=== PATIENT | male | born 1965 | race Caucasian/White ===

== ENCOUNTER → 2018-06-14 | Outpatient (CLI) | payer MEDICARE ==
[2018-06-14 10:54] LABS: Basophils % (A) 0 %; Eosinophils # (A) 0.3 k/uL (0-0.7); Eosinophils % (A) 4 %; HCT 47.4 % (39.0-53.0); HGB 15.1 gm/dL (13.0-17.5); Lymphocytes % (A) 24 %; MCH 29.5 pg (25.0-35.0); MCHC 31.9 g/dL (31.0-37.0); MCV 92.7 fL (80.0-100.0); Mean Platelet Volume 6.8; Monocytes # (A) 0.5 k/uL (0-1.0); Monocytes % (A) 6 %; Neutrophils # (A) 5.3 k/uL (1.3-7.7); Neutrophils % (A) 64 %; Platelet Count 259 k/uL (150-450); RBC 5.11 m/uL (4.30-5.90); RDW 12.3 % (11.5-15.5); WBC 8.3 k/uL (3.8-10.6)
== END | disposition home or self-care (01) ==
LOC: LABPAT 10:07
PROVIDERS: ATTEND Surgery
DX: Z01.818 Encounter for other preprocedural examination (principal); Z01.812 Encounter for preprocedural laboratory examination; K43.2 Incisional hernia without obstruction or gangrene; F17.200 Nicotine dependence, unspecified, uncomplicated; D64.9 Anemia, unspecified
CPT/HCPCS: 36415; 85025; 86850; 86900; 86901; 93005

== ENCOUNTER 2018-06-18 07:27 | Day surgery (SDC) | payer MEDICARE ==
[2018-06-13 11:34] VITALS: BMI 25.0
[~2018-06-18 07:27] MED LIST: DEXAMETHASONE SOD PHOSPHATE 10 MG/ML 1 ML VIAL IV ONE; HEPARIN SODIUM,PORCINE 5,000 UNIT/ML 1 ML VIAL SQ ONE; LACTATED RINGERS 1,000 ML IV SCH; MIDAZOLAM 2 MG/2 ML VIAL IV PRN; ONDANSETRON 4 MG/2 ML VIAL IVP ONE; SCOPOLAMINE 1.5MG/72HR PATCH TRANSDERM ONE; ceFAZolin IN SWFI 2 GM/20 ML SYRINGE IVP ONE; fentaNYL (PF) 50 MCG/ML 2 ML AMP IV PRN
[2018-06-18] MEDS ORDERED: LIDOCAINE 1% 20 ML VIAL (10MG/ML) FOR IV START INTRADERMA ONE (08:00)
[2018-06-18] MEDS ORDERED: HEPARIN SODIUM,PORCINE 5,000 UNIT/ML 1 ML VIAL SQ ONE (08:16)
--- NOTE | 2018-06-18 08:19 | P.GSHP ---
History of Present Illness H&P Date: 06/18/18 Chief Complaint: Incarcerated ventral hernia This a 52-year-old male who's developed an recurrent incarcerated ventral hernia. Patient presents today for laparoscopic robotic system repair. Past Medical History Past Medical History: Hyperlipidemia, Sleep Apnea/CPAP/BIPAP Additional Past Medical History / Comment(s): Abdominal aneurysm, back pain History of Any Multi-Drug Resistant Organisms: None Reported Past Surgical History: Back Surgery, Hernia Repair, Tonsillectomy Additional Past Surgical History / Comment(s): LUMBAR FUSION. UVULA/TONSIL SURGERY FOR SLEEP APNEA. BILATERAL ING HERNIA. Past Anesthesia/Blood Transfusion Reactions: No Reported Reaction Smoking Status: Current every day smoker - Past Family History Mother Family Medical History: No Reported History Medications and Allergies Home Medications Medication Instructions Recorded Confirmed Type Aspirin [Adult Low Dose Aspirin EC] 81 mg PO DAILY 09/18/16 06/18/18 History traMADol HCL [Ultram] 50 mg PO TID PRN 09/18/16 06/18/18 History Simvastatin [Zocor] 40 mg PO HS 06/13/18 06/18/18 History Allergies Allergy/AdvReac Type Severity Reaction Status Date / Time bee venom protein (honey bee) Allergy Swelling Verified 06/18/18 08:15 Penicillins Allergy Itching Verified 06/18/18 08:15 Surgical - Exam Vital Signs Temp Pulse Resp BP Pulse Ox 97.1 F L 70 18 122/80 97 06/18/18 07:45 06/18/18 07:45 06/18/18 07:45 06/18/18 07:45 06/18/18 07:45 - General well developed, no distress - Eyes PERRL - ENT normal pinna - Neck no masses - Respiratory normal expansion - Cardiovascular Rhythm: regular - Abdomen 3 cm ventral hernia located above the umbilicus Abdomen: soft, non tender Assessment and Plan Assessment: Recurrent incarcerated ventral hernia. We'll perform laparoscopic robotic assistance repair.
[2018-06-18] MEDS ORDERED: KETOROLAC 30 MG/ML 1 ML VIAL ONE (08:47)
[2018-06-18] MEDS ORDERED: LIDOCAINE 1% INJ 10MG/ML (20 ML MDV) ONE (08:47)
[2018-06-18] MEDS ORDERED: MIDAZOLAM 2 MG/2 ML VIAL ONE (08:47)
[2018-06-18] MEDS ORDERED: GLYCOPYRROLATE 0.2 MG/ML 2 ML VIAL ONE (08:47)
[2018-06-18] MEDS ORDERED: NEOSTIGMINE 1 MG/ML 10 ML VIAL ONE (08:47)
[2018-06-18] MEDS ORDERED: SUCCINYLCHOLINE CHLORIDE 100 MG/5 ML SYR IV ONE (08:47)
[2018-06-18] MEDS ORDERED: fentaNYL (PF) 50 MCG/ML 2 ML AMP ONE (08:47)
[2018-06-18] MEDS ORDERED: PROPOFOL 10 MG/ML 20 ML VIAL IV ONE (08:47)
[2018-06-18] MEDS ORDERED: ROCURONIUM BROMIDE 10 MG/ML 10 ML VIAL IV ONE (08:47)
[2018-06-18] MEDS ORDERED: BUPIVACAIN-EPI 0.5%-1:200,000 30 ML VIAL SQ ONE ×2 (09:07→09:17)
[2018-06-18] MEDS ORDERED: LACTATED RINGERS 1,000 ML IV ONE (09:55)
[2018-06-18 10:24] VITALS: TEMP 96.8
--- NOTE | 2018-06-18 10:28 | P.OP ---
Date of Procedure: 06/18/18 Preoperative Diagnosis: Incarcerated ventral hernia Postoperative Diagnosis: Incarcerated ventral hernia Procedure(s) Performed: Laparoscopic robotic-assisted repair of incarcerated ventral hernia Partial omentectomy Anesthesia: NIKOLE Surgeon: Peng Hurst Estimated Blood Loss (ml): 5 Pathology: other (Omentum) Condition: stable Disposition: PACU Description of Procedure: The patient was placed on the operating table in the supine position. He received general anesthesia. His abdomen was prepped and draped usual fashion. Using a 5 mm optical trocar under direct visualization the peritoneal cavity was entered in the left upper quadrant. The abdomen was then insufflated. The laparoscope was placed back into the perineal cavity. Next a 8 mm robotic trocar was placed in the left lower quadrant and a 12 mm robotic trocar was placed in the left lateral position. The original 5 mm trocar was exchanged for a 8 mm robotic trocar. The patient's placed in the left side up position. And the patient was docked to the robot. The ventral hernia was visualized. The hernias located above his previous repair. This was a new hernia. Using hook cautery the peritoneum over the incisional hernia was excised. The incarcerated omentum was dissected free from the hernia and transected. The fascial opening was repaired using 0V STRATA FIX suture. Next a piece of 11 cm round ventral light ST mesh was placed into the. Cavity and secured with 2 OV lock suture. The patient was undocked the robot. The needles were retrieved. The incarcerated omentum was retrieved. The fascia of the 12 mm trocar site was closed with 0 Ethibond suture. Skin was closed interrupted 3-0 Monocryl suture. Dermabond dressings was applied. Patient tolerated procedure well and was sent to recovery room stable condition.
[2018-06-18] MEDS ORDERED: HYDROmorphone 1 MG/ML 1 ML SYRINGE IVP ONE ×2 (10:30→10:36)
[2018-06-18] MEDS ORDERED: HYDROcodone/APAP 7.5-325MG 1 EACH TAB PO ONE (11:14)
[2018-06-18 11:57] VITALS: BP 123/82; PULSE 56; RESP 18
== END 2018-06-18 11:58 | disposition home or self-care (01) ==
LOC: OR 07:27
PROVIDERS: ATTEND Surgery
DX: K43.6 Other and unspecified ventral hernia with obstruction, without gangrene (principal); E78.5 Hyperlipidemia, unspecified; G47.30 Sleep apnea, unspecified; Z99.89 Dependence on other enabling machines and devices; I71.4 Abdominal aortic aneurysm, without rupture; F17.210 Nicotine dependence, cigarettes, uncomplicated; Z79.82 Long term (current) use of aspirin; Z79.899 Other long term (current) drug therapy; Z88.0 Allergy status to penicillin; Z91.030 Bee allergy status
CPT/HCPCS: 88305; 49655; C1781; J2250; J1644; J1100; J2710; J2405; J2001; J3010; J1885; J1170; J0330; J2704; J0690; 86850; 86900; 86901

== ENCOUNTER 2018-07-26 10:34 | Day surgery (SDC) | payer MEDICARE ==
[2018-07-24 16:55] VITALS: BMI 25.0
[~2018-07-26 10:34] MED LIST changes: -DEXAMETHASONE SOD PHOSPHATE 10 MG/ML 1 ML VIAL IV ONE; -HEPARIN SODIUM,PORCINE 5,000 UNIT/ML 1 ML VIAL SQ ONE; +HYDROmorphone 0.5 MG/0.5 ML SYRINGE IVP PRN; +LIDOCAINE 1% 20 ML VIAL (10MG/ML) FOR IV START INTRADERMA PRN; -MIDAZOLAM 2 MG/2 ML VIAL IV PRN; -ONDANSETRON 4 MG/2 ML VIAL IVP ONE; -SCOPOLAMINE 1.5MG/72HR PATCH TRANSDERM ONE; -ceFAZolin IN SWFI 2 GM/20 ML SYRINGE IVP ONE; -fentaNYL (PF) 50 MCG/ML 2 ML AMP IV PRN
[2018-07-26 10:56] VITALS: RESP 16; TEMP 98
[2018-07-26] MEDS ORDERED: PROPOFOL 10 MG/ML 20 ML VIAL IV ONE (11:36)
[2018-07-26] MEDS ORDERED: LIDOCAINE 1% INJ 10MG/ML (20 ML MDV) ONE (11:36)
[2018-07-26] MEDS ORDERED: GLUCAGON 1 MG/ML VIAL ONE (11:36)
--- NOTE | 2018-07-26 11:47 | P.GSHP ---
History of Present Illness H&P Date: 07/26/18 Chief Complaint: Screening colonoscopy This a 52-year-old male referred from Dr. Wong. Patient is today for screening colonoscopy. He denies a significant GI complaints. Past Medical History Additional Past Medical History / Comment(s): ABDOMINAL AORTIC ANEURYSM., BACK PAIN. History of Any Multi-Drug Resistant Organisms: None Reported Past Surgical History: Back Surgery, Hernia Repair, Tonsillectomy Additional Past Surgical History / Comment(s): INGUINAL HERNIA X2, STATES ABDOMINAL HERNIA SURGERY X2- (VENTRAL HERNIA 06/18/18)., Past Anesthesia/Blood Transfusion Reactions: No Reported Reaction Past Psychological History: Depression Additional Psychological History / Comment(s): STATES NO PROBLEM WITH DEPRESSION NOW. Smoking Status: Current every day smoker Past Alcohol Use History: Occasional Additional Past Alcohol Use History / Comment(s): SMOKES 1 PPD, SMOKING FOR 38 YEARS. Past Drug Use History: None Reported - Past Family History Father Family Medical History: Unable to Obtain Medications and Allergies Home Medications Medication Instructions Recorded Confirmed Type traMADol HCL [Ultram] 50 mg PO TID PRN 09/18/16 07/26/18 History Simvastatin [Zocor] 40 mg PO HS 06/13/18 07/26/18 History Allergies Allergy/AdvReac Type Severity Reaction Status Date / Time bee venom protein (honey bee) Allergy Swelling Verified 07/26/18 10:54 Penicillins Allergy Itching Verified 07/26/18 10:54 Surgical - Exam Vital Signs Temp Pulse Resp BP Pulse Ox 98.0 F 78 16 125/77 95 07/26/18 10:51 07/26/18 10:51 07/26/18 10:51 07/26/18 10:51 07/26/18 10:51 - General well developed, no distress - Eyes PERRL - ENT normal pinna - Neck no masses - Respiratory normal expansion - Cardiovascular Rhythm: regular - Abdomen Abdomen: soft, non tender Assessment and Plan Assessment: We'll perform screening colonoscopy.
--- NOTE | 2018-07-26 12:16 | P.OP ---
Date of Procedure: 07/26/18 Preoperative Diagnosis: Screening colonoscopy Postoperative Diagnosis: Sigmoid colon polyp Diverticulosis Procedure(s) Performed: Colonoscopy Anesthesia: MAC Surgeon: Peng Hurst Pathology: other (Sigmoid colon polyp) Condition: stable Disposition: PACU Description of Procedure: The patient's placed on the endoscopy table in the lateral position. He received IV sedation. Digital rectal exam was performed which revealed no abnormalities. The flexible colonoscope was then placed patient anus and passed throughout the entire colon. The ileocecal valve was visualized. The cecum, ascending and transverse colon appeared normal. The descending and sigmoid colon there is mild diverticular changes. At the distal sigmoid colon there was a peduncular polyp and this removed with the snare. This opened was then brought back the rectum and this appeared normal. Scope was withdrawn for patient.
[2018-07-26 12:31] VITALS: BP 110/76; PULSE 69
== END 2018-07-26 12:45 | disposition home or self-care (01) ==
LOC: ORWHC2ENDO 10:34
PROVIDERS: ATTEND Surgery
DX: Z12.11 Encounter for screening for malignant neoplasm of colon (principal); D12.5 Benign neoplasm of sigmoid colon; K57.30 Diverticulosis of large intestine without perforation or abscess without bleeding; F17.210 Nicotine dependence, cigarettes, uncomplicated; I10 Essential (primary) hypertension; I73.9 Peripheral vascular disease, unspecified; Z79.899 Other long term (current) drug therapy; Z88.0 Allergy status to penicillin; Z91.030 Bee allergy status
CPT/HCPCS: 88305; 45385; J1610; J2001; J2704

== ENCOUNTER 2018-08-06 20:01 | Inpatient (IN) | payer MEDICARE ==
[2018-08-06] MEDS: MIDAZOLAM 2 MG/2 ML VIAL IV ONE ×2 (20:10→20:42)
[2018-08-06] MEDS ORDERED: MIDAZOLAM 2 MG/2 ML VIAL ONE (20:10)
[2018-08-06] MEDS ORDERED: LIDOCAINE 1% INJ 10MG/ML (20 ML MDV) SQ ONE (20:12)
[2018-08-06] MEDS: fentaNYL (PF) 50 MCG/ML 2 ML AMP IV ONE ×2 (20:13→20:51)
[2018-08-06] MEDS ORDERED: fentaNYL (PF) 50 MCG/ML 2 ML AMP ONE (20:15)
[2018-08-06] MEDS ORDERED: SODIUM CHLORIDE 0.9% 1,000 ML IV ONE (20:24)
[2018-08-06] MEDS ORDERED: BIVALIRUDIN BOLUS 250 MG/50 ML IV ONE (20:30)
[2018-08-06] MEDS ORDERED: BIVALIRUDIN 250 MG in SODIUM CHLORIDE 0.9% 50 ML IV ONE (20:31)
[2018-08-06] MEDS ORDERED: ATROPINE SULFATE 0.1 MG/ML 10ML SYRINGE IV ONE (20:35)
[2018-08-06] MEDS ORDERED: niCARdipine 25 MG/10 ML VIAL ONE (20:40)
[2018-08-06] MEDS ORDERED: niCARdipine 25 MG/10 ML VIAL INTRACORON ONE (20:42)
[2018-08-06] MEDS ORDERED: POTASSIUM CHLORIDE ER 20 MEQ TAB.ER PO STA ×2 (20:43→20:44)
[2018-08-06] MEDS ORDERED: LIDOCAINE 1% INJ 10MG/ML (20 ML MDV) ONE (20:49)
[2018-08-06] MEDS ORDERED: LIDOCAINE 2% (PF) 20 MG/ML 2 ML VIAL SQ ONE (20:50)
[2018-08-06] MEDS ORDERED: TICAGRELOR 90 MG TAB ONE (20:51)
[2018-08-06] MEDS ORDERED: TICAGRELOR 90 MG TAB PO ONE (20:53)
[2018-08-06] MEDS ORDERED: IOPAMIDOL-370 125ML BTL INJ ONE (20:54)
[2018-08-06] MEDS ORDERED: MAG HYDROX/AL HYDROX/SIMETH 30 ML CUP PO PRN (21:00)
[2018-08-06] MEDS ORDERED: NITROGLYCERIN SL TABS 0.4 MG TAB SUBLINGUAL PRN (21:00)
[2018-08-06] MEDS ORDERED: RX INFO: IV CONTRAST WAS GIVEN 1 EACH MISC MISCELLANE PRN (21:00)
[2018-08-06] MEDS ORDERED: ATORVASTATIN 80 MG TAB PO SCH (21:00)
[2018-08-06] MEDS ORDERED: ATROPINE SULFATE 0.1 MG/ML 10ML SYRINGE IV PRN (21:00)
[2018-08-06] MEDS ORDERED: ZOLPIDEM 5 MG TAB PO PRN (21:00)
[2018-08-06 21:36] LABS: Glucose,Whole Blood 124 mg/dL (75-99)
[2018-08-06] MEDS ORDERED: POTASSIUM CHLORIDE ER 20 MEQ TAB.ER PO ONE (22:00)
[2018-08-06] MEDS ORDERED: MORPHINE SULFATE 2 MG/ML SYRINGE IVP ONE (22:40)
--- NOTE | 2018-08-06 22:44 | CC ---
CARDIAC CATHETERIZATION REPORT INDICATION: Acute inferior wall myocardial infarction. PROCEDURE NOTE: After obtaining informed consent, left heart catheterization and coronary angiogram were performed via the right femoral artery using standard Darrell catheters. The patient has a prior history of abdominal aortic aneurysm, status post aortic stent graft. The Glidewire and catheters were transposed across the aorta under fluoroscopic guidance. The patient tolerated the procedure well without any obvious immediate complications. FINDINGS: HEMODYNAMICS: Left ventricular end-diastolic pressure is 18 mm. There is no significant gradient across the aortic valve. LEFT VENTRICULOGRAM: Left ventriculogram is not performed. ANGIOGRAPHIC DATA: 1. Left main coronary artery: Left main coronary artery appears calcified but is free of significant stenosis. Divides into left anterior descending coronary artery and circumflex coronary artery. 2. Circumflex coronary artery has an 80-90 percent stenosis in its ostial portion just as it comes off the left main. 3. Left anterior descending coronary artery: LAD has an aneurysmal and ectatic area in the proximal part. 4. Right coronary artery: Right coronary artery is totally occluded in its proximal portion with [id number] collaterals. CONCLUSIONS: 1. Acutely occluded right coronary artery. 2. 90% ostial stenosis of the circumflex coronary artery. 3. Ectatic and aneurysmal segment in the proximal LAD. PLAN: Patient will undergo angioplasty with stent placement of the right coronary artery and we will address the circumflex coronary artery and LAD at a later time. Dr. Cecelia Bhandari the on-call reservations clerk will review the angiographic data and will proceed with angioplasty. Please send a copy of this dictation to Dr. Felisa Wong. MMWILLYL / IJN: [id number] /
--- NOTE | 2018-08-06 22:44 | CONS ---
CONSULTATION CHIEF COMPLAINT: Chest pain. HISTORY OF PRESENT ILLNESS: This is a 52-year-old gentleman with history of abdominal aortic aneurysm, status post aortic stent graft, smoking, who presented to the [facility] with sudden onset chest pain that started around 7 o'clock tonight. It was severe intensity, precordial, radiated down his arms. He was found to have acute inferior wall myocardial infarction on an EKG. I was called and we expeditiously transferred the patient over to [facility] for emergent cardiac catheterization, angioplasty. I evaluated the patient in the laborer tin can. The patient is still in chest pain and has ST- segment elevation inferior leads. PAST MEDICAL HISTORY: Significant for abdominal aortic aneurysm, status post stent graft. MEDICATIONS: As charted. ALLERGIES: Allergies are as charted. FAMILY HISTORY: Negative for premature coronary artery disease. SOCIAL HISTORY: Significant for smoking and ETOH abuse. REVIEW OF SYSTEMS: HEENT is unremarkable. Cardiac as described above. Respiratory negative. GI negative. ENT negative. Allergy, immunology, skin and musculoskeletal negative. Endocrine and derm negative. Constitutional negative. Oncological negative. Rest of the system review is not relevant. EXAM: The patient is comfortable at rest. VITAL SIGNS: Stable. Chest exam reveals diminished air entry at the bases. Heart exam reveals first and second heart sounds. No gallop. No murmur. No rub. Abdomen is soft, nontender. Exam of extremities did not reveal edema. Peripheral pulses are felt palpable. I do not have any labs at this time. EKG is as described above. ASSESSMENT: Acute inferior wall myocardial infarction. PLAN: Patient will undergo emergent catheterization angioplasty. MMODL / IJN: [id number] /
[2018-08-06] MEDS: SODIUM CHLORIDE 0.9% 1,000 ML IV SCH (22:56)
--- NOTE | 2018-08-06 23:14 | PTCA ---
PERCUTANEOUSTRANS CORORONARY ANGIOGRAPHY DATE OF SERVICE: 08/06/2018 PROCEDURE: PTCA and stenting of proximal right coronary artery performed in the setting of an acute myocardial infarction as a primary procedure. PERFORMED BY: Dr. David Bhandari. SEDATION: Moderate conscious sedation time was 26 minutes. Patient was administered fentanyl, Versed and Benadryl and was monitored for oxygen saturation, hemodynamics and EKG. CLINICAL INFORMATION: Mr. Severiano Varner is a 52-year-old gentleman with a history of abdominal aortic aneurysm, stent, graft, smoking and family history of CAD, who came in with an acute inferior GA and presented to the emergency room at [facility] at 7:10 pm today. He was promptly transferred here for a cardiac catheterization and PCI. Dr. Swanson evaluated him and performed coronary angiography which revealed total occlusion of proximal RCA as a culprit lesion and also a very high-grade lesion involving ostium and proximal portion of the obtuse marginal branch of circumflex. LAD was aneurysmal. The patient advised PCI of RCA that was performed expeditiously. PROCEDURE NOTE: The existing 6-Tajik introducer in the right femoral artery was used to perform the procedure. A standard right Darrell guide catheter of 6-Tajik caliber was used to cannulate the right coronary artery. A BMW wire was used to cross the lesion. Predilatation was performed with a 2.5 caliber 12 mm long Trek balloon. Subsequently a 3.25 caliber 15 mm long Xience stent was deployed at 13 atmospheres. Patient had chest pain and inferior ST elevation. Excellent angiographic result was achieved without complication. Nicardipine was administered intracoronary. Patient had complete resolution of chest pain and also resolution of EKG changes. He was hemodynamically stable after a transient episode of bradycardia requiring atropine 1 mg. The sheath was then taken out and a Perclose device used to secure hemostasis. Results were discussed with the patient and family and he was sent to the ICU in a stable condition. He received Angiomax bolus and infusion as per protocol and Brilinta 180 mg was also given. The patient tolerated procedure well without complications. MMODL / IJN: [id number] /
[2018-08-07 05:58] LABS: Basophils % (A) 0 %; Eosinophils # (A) 0.2 k/uL (0-0.7); Eosinophils % (A) 2 %; HCT 41.6 % (39.0-53.0); HGB 13.5 gm/dL (13.0-17.5); Lymphocytes # (A) 2.3 k/uL (1.0-4.8); Lymphocytes % (A) 28 %; MCH 31.4 pg (25.0-35.0); MCHC 32.5 g/dL (31.0-37.0); MCV 96.4 fL (80.0-100.0); Mean Platelet Volume 6.5; Monocytes # (A) 0.5 k/uL (0-1.0); Monocytes % (A) 6 %; Neutrophils # (A) 5.2 k/uL (1.3-7.7); Neutrophils % (A) 63 %; Platelet Count 233 k/uL (150-450); RBC 4.31 m/uL (4.30-5.90); RDW 12.7 % (11.5-15.5); WBC 8.3 k/uL (3.8-10.6)
[2018-08-07 06:07] LABS: Anion Gap 6 mmol/L; Blood Urea Nitrogen 11 mg/dL (9-20); Calcium 9.1 mg/dL (8.4-10.2); Carbon Dioxide 25 mmol/L (22-30); Chloride 109 mmol/L (98-107); Glucose 92 mg/dL (74-99); Potassium 4.7 mmol/L (3.5-5.1); Sodium 140 mmol/L (137-145)
[2018-08-07] MEDS: TICAGRELOR 90 MG TAB PO SCH ×2 (08:24→21:03)
[2018-08-07] MEDS: LOSARTAN 50 MG TAB PO SCH (08:24)
[2018-08-07] MEDS ORDERED: ASPIRIN 81 MG PO SCH (09:00)
[2018-08-07] MEDS: SODIUM CHLORIDE 0.9% 1,000 ML IV SCH (09:34)
--- NOTE | 2018-08-07 10:11 | P.PN ---
Subjective Patient has a constant ache in the mid chest worse with breathing. Otherwise looks stable no respiratory distress no dizziness lightheadedness palpitations On examination he is afebrile 98.6F pulse rate in the 60s and 70s respirations normal blood pressure 107/67 mmHg At sounds reduced bilaterally at the bases but no rhonchi no crackles Heart sounds are normal no murmurs or gallops or rub Abdomen is soft nontender Extremities warm no edema Impression Acute inferior wall VT status post coronary stenting last evening by Dr. Bhandari. Patient of Dr. White Patient has a second lesion and will undergo elective coronary stenting in the future Continue aspirin Brilinta losartan atorvastatin and beta blockers I will increase the dose of atorvastatin to 40 mg by mouth daily Objective - Vital Signs Vital signs: Vital Signs Temp 98.6 F 08/07/18 08:00 Pulse 76 08/07/18 09:00 Resp 25 H 08/07/18 09:00 BP 107/67 08/07/18 09:00 Pulse Ox 98 08/07/18 09:00 Intake & Output 08/06/18 08/07/18 08/07/18 18:59 06:59 18:59 Intake Total 1408 450 Output Total 1050 0 Balance 358 450 Weight 85.4 kg 85.4 kg Intake: IV 1408 150 Sodium Chloride 0.9% 1, 675 150 000 ml @ 75 mls/hr IV . [id number] [facility] Rx#:[id number] Oral 300 Output: Urine 1050 0 - Labs CBC & Chem 7: 08/07/18 05:38 08/07/18 05:38 Labs: Abnormal Lab Results - Last 24 Hours (Table) 08/06/18 08/06/18 08/07/18 Range/Units 21:27 23:31 05:38 Chloride 109 H (98-107) mmol/L POC Glucose (mg/dL) 124 H (75-99) mg/dL Troponin I 2.890 H* (0.000-0.034) ng/mL 08/07/18 Range/Units 05:38 Chloride (98-107) mmol/L POC Glucose (mg/dL) (75-99) mg/dL Troponin I 12.100 H* (0.000-0.034) ng/mL
[2018-08-07] MEDS: traMADol 50 MG TAB PO PRN ×2 (10:48→21:02)
--- NOTE | 2018-08-07 11:14 | P.HPIM ---
History of Present Illness H&P Date: 08/07/18 Chief Complaint: STEMI This is a 52-year-old male patient of Dr. Wong.. Patient presented to the emergency room with complaints of chest pain that radiated down his arms. Patient presented to [facility] and was found to have acute inferior wall myocardial infarction on his EKG. Patient underwent an extended transferred to [facility] for emergent cardiac catheterization and angioplasty. Patient has known past medical history of chest pain, hyperlipidemia, abdominal aortic aneurysm repair at [facility] in 2016, depression and nicotine dependence. Patient received a stent placement to the right coronary artery. Patient does have a second lesion in the left coronary artery and LAD the will need to be addressed at a later time per cardiology. Patient currently on [place] test, losartan, atorvastatin and metoprolol. At this time patient denies chest pain or shortness of breath. Patient denies nausea vomiting or diarrhea. Patient denies any urinary burning or frequency Review of Systems Please refer to HPI otherwise unremarkable Past Medical History Past Medical History: Chest Pain / Angina, Hyperlipidemia Additional Past Medical History / Comment(s): ABDOMINAL AORTIC ANEURYSM repair done at [facility] 2016. ., BACK PAIN. History of Any Multi-Drug Resistant Organisms: None Reported Past Surgical History: Back Surgery, Hernia Repair, Tonsillectomy Additional Past Surgical History / Comment(s): INGUINAL HERNIA X2, STATES ABDOMINAL HERNIA SURGERY X2- (VENTRAL HERNIA 06/18/18)., Past Anesthesia/Blood Transfusion Reactions: No Reported Reaction Past Psychological History: Depression Additional Psychological History / Comment(s): STATES NO PROBLEM WITH DEPRESSION NOW. Smoking Status: Current every day smoker Past Alcohol Use History: Occasional Additional Past Alcohol Use History / Comment(s): SMOKES 1 PPD, SMOKING FOR 38 YEARS. Past Drug Use History: None Reported - Past Family History Mother Family Medical History: No Reported History Father Family Medical History: Unable to Obtain Medications and Allergies Home Medications Medication Instructions Recorded Confirmed Type traMADol HCL [Ultram] 50 mg PO TID PRN 09/18/16 08/06/18 History Aspirin EC [Ecotrin Low Dose] 81 mg PO DAILY 08/06/18 08/06/18 History Simvastatin [Zocor] 40 mg PO HS 08/06/18 08/06/18 History Allergies Allergy/AdvReac Type Severity Reaction Status Date / Time bee venom protein (honey bee) Allergy Swelling Verified 08/06/18 22:15 Penicillins Allergy Itching Verified 08/06/18 22:15 Physical Exam Vitals: Vital Signs Temp Pulse Pulse Pulse Resp BP BP 08/07/18 10:36 97.7 F 70 20 100/62 08/07/18 09:00 76 25 H 107/67 08/07/18 08:41 16 08/07/18 08:30 67 15 106/75 08/07/18 08:00 98.6 F 62 25 H 116/69 08/07/18 07:30 61 16 116/70 08/07/18 07:00 55 L 15 102/71 08/07/18 06:30 54 L 16 111/72 08/07/18 06:00 62 13 108/71 08/07/18 05:30 68 15 123/79 08/07/18 05:00 59 L 13 119/76 08/07/18 04:30 55 L 17 103/70 08/07/18 04:00 97.6 F 56 L 10 L 98/65 08/07/18 03:30 57 L 17 110/76 08/07/18 03:00 63 10 L 112/71 08/07/18 02:30 64 13 113/69 08/07/18 02:00 65 14 112/76 08/07/18 01:30 64 11 L 116/75 08/07/18 01:00 55 L 10 L 117/76 08/07/18 00:45 117/77 08/07/18 00:30 62 12 117/77 08/07/18 00:00 98.2 F 62 13 111/75 08/06/18 23:45 111/75 08/06/18 23:30 65 12 115/77 08/06/18 23:24 64 11 L 122/75 08/06/18 23:00 69 19 122/75 08/06/18 22:30 71 13 114/78 08/06/18 22:00 71 10 L 119/78 08/06/18 21:45 122/75 08/06/18 21:30 78 119/79 08/06/18 21:00 70 12 08/06/18 20:18 97.6 F 75 11 L 119/79 Pulse Ox 08/07/18 10:36 97 08/07/18 09:00 98 08/07/18 08:41 98 08/07/18 08:30 95 08/07/18 08:00 97 08/07/18 07:30 97 08/07/18 07:00 97 08/07/18 06:30 96 08/07/18 06:00 95 08/07/18 05:30 96 08/07/18 05:00 98 08/07/18 04:30 97 08/07/18 04:00 97 08/07/18 03:30 97 08/07/18 03:00 96 08/07/18 02:30 95 08/07/18 02:00 94 L 08/07/18 01:30 95 08/07/18 01:00 97 08/07/18 00:45 08/07/18 00:30 97 08/07/18 00:00 96 08/06/18 23:45 08/06/18 23:30 97 08/06/18 23:24 98 08/06/18 23:00 98 08/06/18 22:30 99 08/06/18 22:00 99 08/06/18 21:45 08/06/18 21:30 98 08/06/18 21:00 98 08/06/18 20:18 95 Intake and Output 08/06/18 08/07/18 08/07/18 22:59 06:59 14:59 Intake Total 808 600 450 Output Total 1050 0 Balance 808 -450 450 Intake: IV 808 600 150 Sodium Chloride 0.9% 1, 75 600 150 000 ml @ 75 mls/hr IV . [id number] [facility] Rx#:[id number] Oral 300 Output: Urine 1050 0 Other: # Voids 1 Weight 83.915 kg 85.4 kg 85.4 kg Head normocephalic Neck supple Lungs clear to auscultation bilaterally no wheezing or crackles Heart regular rate and rhythm S1-S2, no rub or gallop Abdomen is soft nontender nondistended positive bowel sounds no hepatosplenomegaly Extremities no edema Neuro alert and orientated to 3 Results CBC & Chem 7: 08/07/18 05:38 08/07/18 05:38 Labs: Abnormal Lab Results - Last 24 Hours (Table) 08/06/18 08/06/18 08/07/18 Range/Units 21:27 23:31 05:38 Chloride 109 H (98-107) mmol/L POC Glucose (mg/dL) 124 H (75-99) mg/dL Troponin I 2.890 H* (0.000-0.034) ng/mL 08/07/18 Range/Units 05:38 Chloride (98-107) mmol/L POC Glucose (mg/dL) (75-99) mg/dL Troponin I 12.100 H* (0.000-0.034) ng/mL Assessment and Plan Assessment: 1. Acute inferior wall myocardial infarction status post post coronary stenting to the RCA. Second lesion that will need to be addressed in the future per cardiology. Patient currently on brilenta, asprin, Losartan and Metoprolol. 2-D echo has been ordered 2. History of abdominal aortic aneurysm repair in 2016 at [facility] 3. Nicotine dependence. Patient educated greater than 3 minutes on smoking cessation. Nicotine patch has been ordered 4. Hyperlipidemia. Continue atorvastatin 5. history of depression Time with Patient: Greater than 30 (Greater than 60% of the total time spent in counseling and coordination of care. I performed an examination of the patient and discussed their management with the Nurse Practitioner. I have reviewed the Nurse Practitioner's notes and agree with the documented findings and plan of care)
--- NOTE | 2018-08-07 11:17 | ECHOF ---
Referral Reason:STEMI MEASUREMENTS -------- HEIGHT: 182.9 cm WEIGHT: 84.8 kg BP: 106/75 RVIDd: 2.1 cm (< 3.3) IVSd: 1.3 cm (0.6 - 1.1) LVIDd: 3.7 cm (3.9 - 5.3) LVPWd: 1.4 cm (0.6 - 1.1) IVSs: 1.6 cm LVIDs: 2.6 cm LVPWs: 1.8 cm Ao Diam: 3.6 cm (2.0 - 3.7) AV Cusp: 1.4 cm (1.5 - 2.6) LA Diam: 2.7 cm (2.7 - 3.8) MV EXCURSION: 20.130 mm (> 18.000) MV EF SLOPE: 109 mm/s (70 - 150) EPSS: 0.3 cm MV E José: 0.80 m/s MV DecT: 218 ms MV A José: 0.55 m/s MV E/A Ratio: 1.47 RAP: 5.00 mmHg RVSP: 9.20 mmHg FINDINGS -------- Sinus rhythm. This was a technically good study. The left ventricular size is normal. There is mild concentric left ventricular hypertrophy. Overa ll left ventricular systolic function is normal with, an EF between 55 - 60 %. The right ventricle is normal in size and function. The left atrium is normal in size. The right atrium is normal in size. The aortic valve is trileaflet, and appears structurally normal. No aortic stenosis or regurgitation. There is trace mitral regurgitation. Trace tricuspid regurgitation present. The right ventricular systolic pressure, as measured by Dopp ler, is 9.20mmHg. Pulmonic valve appears structurally normal. The aortic root size is normal. The pericardium is normal. CONCLUSIONS -------- 1. Sinus rhythm. 2. This was a technically good study. 3. The left ventricular size is normal. 4. There is mild concentric left ventricular hypertrophy. 5. Overall left ventricular systolic function is normal with, an EF between 55 - 60 %. 6. The right ventricle is normal in size and function. 7. The left atrium is normal in size. 8. The right atrium is normal in size. 9. The aortic valve is trileaflet, and appears structurally normal. No aortic stenosis or regurgitati on. 10. There is trace mitral regurgitation. 11. Trace tricuspid regurgitation present. 12. The right ventricular systolic pressure, as measured by Doppler, is 9.20mmHg. 13. Pulmonic valve appears structurally normal. 14. The aortic root size is normal. 15. The pericardium is normal. BANQUET DIRECTOR: Elly Salas RDCS
[2018-08-07] MEDS ORDERED: ATORVASTATIN 20 MG TAB PO SCH (21:00)
[2018-08-07] MEDS: METOPROLOL TARTRATE 12.5 MG TAB PO SCH (21:02)
[2018-08-07] MEDS: ATORVASTATIN 40 MG TAB PO SCH (21:03)
[2018-08-08 06:58] LABS: Basophils % (A) 1 %; Eosinophils # (A) 0.3 k/uL (0-0.7); Eosinophils % (A) 4 %; HCT 44.7 % (39.0-53.0); HGB 14.3 gm/dL (13.0-17.5); Lymphocytes # (A) 2.3 k/uL (1.0-4.8); Lymphocytes % (A) 25 %; MCH 31.1 pg (25.0-35.0); MCV 97.1 fL (80.0-100.0); Mean Platelet Volume 6.7; Monocytes # (A) 0.5 k/uL (0-1.0); Monocytes % (A) 6 %; Neutrophils # (A) 5.9 k/uL (1.3-7.7); Neutrophils % (A) 64 %; Platelet Count 236 k/uL (150-450); RDW 12.7 % (11.5-15.5); WBC 9.2 k/uL (3.8-10.6)
[2018-08-08 07:09] LABS: ALT 28 U/L (21-72); AST 47 U/L (17-59); Albumin 3.6 g/dL (3.5-5.0); Alkaline Phosphatase 81 U/L (38-126); Anion Gap 7 mmol/L; Blood Urea Nitrogen 10 mg/dL (9-20); Calcium 9.3 mg/dL (8.4-10.2); Carbon Dioxide 24 mmol/L (22-30); Chloride 108 mmol/L (98-107); Glucose 86 mg/dL (74-99); Potassium 4.7 mmol/L (3.5-5.1); Sodium 139 mmol/L (137-145); Total Bilirubin 0.6 mg/dL (0.2-1.3); Total Protein 6.4 g/dL (6.3-8.2)
[2018-08-08] MEDS: ASPIRIN 81 MG PO SCH (08:45)
[2018-08-08] MEDS: NICOTINE 14MG/24HR PATCH TRANSDERM SCH (08:46)
[2018-08-08] MEDS: METOPROLOL TARTRATE 12.5 MG TAB PO SCH ×2 (08:46→20:34)
[2018-08-08] MEDS: TICAGRELOR 90 MG TAB PO SCH ×2 (08:47→20:34)
[2018-08-08] MEDS: traMADol 50 MG TAB PO PRN ×2 (12:06→20:33)
--- NOTE | 2018-08-08 14:20 | P.PN ---
Subjective Progress Note Date: 08/08/18 This is a 52-year-old gentleman with history of abdominal aortic aneurysm status post aortic stent graft, nicotine dependence, who presented to [facility] with sudden onset of chest pain, he was found to have an acute inferior wall myocardial infarction. Underwent cardiac catheterization by Dr. Swanson with subsequent PTCA and stenting of the proximal right coronary artery by Dr. David Bhandari. Patient does have a second lesion in the circumflex requiring intervention which will be done electively as an outpatient. He did have an episode of shortness of breath while in the shower, mild chest discomfort which is currently relieved at this time. Blood pressure 100/50 with a heart rate in the 60s. White blood cell count 9.2, hemoglobin 14.3, platelet count 236. Sodium 139, potassium 4.7, BUN 10, creatinine 0.9. Objective - Vital Signs Vital signs: Vital Signs Temp 97.4 F L 08/08/18 11:59 Pulse 59 L 08/08/18 12:00 Resp 18 08/08/18 11:59 BP 100/57 08/08/18 12:00 Pulse Ox 96 08/08/18 08:41 Intake & Output 08/07/18 08/08/18 08/08/18 18:59 06:59 18:59 Intake Total 1270 360 420 Output Total 0 Balance 1270 360 420 Weight 85.4 kg 82.5 kg Intake: IV 610 Sodium Chloride 0.9% 1, 610 000 ml @ 20 mls/hr IV . Q24H [facility] Rx#:[id number] Oral 660 360 420 Output: Urine 0 Other: Voiding Method Toilet Toilet Urinal # Voids 1 1 1 - Exam PHYSICAL EXAMINATION: GENERAL: 52-year-old gentleman in no acute distress at the time of my examination. HEENT: Head is atraumatic, normocephalic. Pupils equal, round. Sclera anicteric. Conjunctiva are clear. Mucous membranes of the mouth are moist. Neck is supple. There is no elevated jugular venous pressure.No Carotid bruit is heard. HEART EXAMINATION: Heart S1, S2 normal. No murmur or gallop heard. CHEST EXAMINATION: Lungs are clear to auscultation and precussion. Positive chest wall tenderness is noted on palpation or with deep breathing. ABDOMEN: Soft, nontender. Bowel sounds are heard. No organomegaly noted. EXTREMITIES: 2+ peripheral pulses with no evidence of peripheral edema and no calf tenderness noted. Right groin soft, no evidence of any hematoma NEUROLOGIC patient is awake, alert and oriented ?-3. . - Labs CBC & Chem 7: 08/08/18 06:09 08/08/18 06:09 Labs: Abnormal Lab Results - Last 24 Hours (Table) 08/08/18 Range/Units 06:09 Chloride 108 H (98-107) mmol/L Assessment and Plan Plan: Assessment and plan #1 inferior wall myocardial infarction status post angioplasty and stenting of the RCA patient also has a lesion in the circumflex for which intervention will be done electively as an outpatient. 2 hyperlipidemia Plan Echocardiogram with Doppler study was performed which revealed an ejection fraction of 55-60%. We will continue the patient on aspirin 81 mg daily, Lipitor 40 mg, Cozaar 25 mg daily, metoprolol 12-1/2 mg one tablet by mouth twice a day, Brilinta 90 mg one tablet by mouth twice a day, nicotine patch 14 mg every 24 hours and sublingual nitroglycerin as needed for chest pain. DNP note has been reviewed, I agree with a documented findings and plan of care. Patient was seen and examined.
--- NOTE | 2018-08-08 15:25 | P.PN ---
Subjective Progress Note Date: 08/08/18 This is a 52-year-old male patient of Dr. Wong.. Patient presented to the emergency room with complaints of chest pain that radiated down his arms. Patient presented to [facility] and was found to have acute inferior wall myocardial infarction on his EKG. Patient underwent an extended transferred to [facility] for emergent cardiac catheterization and angioplasty. Patient has known past medical history of chest pain, hyperlipidemia, abdominal aortic aneurysm repair at [facility] in 2016, depression and nicotine dependence. Patient received a stent placement to the right coronary artery. Patient does have a second lesion in the left coronary artery and LAD the will need to be addressed at a later time per cardiology. Patient currently on [place] test, losartan, atorvastatin and metoprolol. At this time patient denies chest pain or shortness of breath. Patient denies nausea vomiting or diarrhea. Patient denies any urinary burning or frequency On 08/08/2018 patient has been moved out of the intensive care unit to [facility] care. patient is currently alert and oriented 3 resting comfortably in bed. Patient did complain that he is short of breath with activity and have episodes of chest discomfort last night. Blood pressure has remained marginal 90s systolic throughout the day. Patient's Cozaar has been decreased per cardiology services Objective - Vital Signs Vital signs: Vital Signs Temp 97 F L 08/08/18 14:47 Pulse 64 08/08/18 14:47 Resp 18 08/08/18 14:47 BP 133/68 08/08/18 14:47 Pulse Ox 97 08/08/18 14:47 Intake & Output 08/07/18 08/08/18 08/08/18 18:59 06:59 18:59 Intake Total 1270 360 420 Output Total 0 Balance 1270 360 420 Weight 85.4 kg 82.5 kg Intake: IV 610 Sodium Chloride 0.9% 1, 610 000 ml @ 20 mls/hr IV . Q24H [facility] Rx#:[id number] Oral 660 360 420 Output: Urine 0 Other: Voiding Method Toilet Toilet Urinal # Voids 1 1 1 # Bowel Movements 0 - Exam Head normocephalic Neck supple Lungs clear to auscultation bilaterally no wheezing or crackles Heart regular rate and rhythm S1-S2, no rub or gallop Abdomen is soft nontender nondistended positive bowel sounds no hepatosplenomegaly Extremities no edema Neuro alert and orientated to 3 - Labs CBC & Chem 7: 08/08/18 06:09 08/08/18 06:09 Labs: Abnormal Lab Results - Last 24 Hours (Table) 08/08/18 Range/Units 06:09 Chloride 108 H (98-107) mmol/L Assessment and Plan Assessment: 1. Acute inferior wall myocardial infarction status post post coronary stenting to the RCA. Second lesion that will need to be addressed in the future per cardiology. Patient currently on brilenta, asprin, Losartan and Metoprolol. 2-D echo completed showing EF of 55-60%. Patient's Cozaar has been decreased per cardiology services due to blood pressure in the 90s. Patient did have episode of chest discomfort last night. Anticipate possible discharge in the next 24 hours 2. History of abdominal aortic aneurysm repair in 2016 at [facility] 3. Nicotine dependence. Patient educated greater than 3 minutes on smoking cessation. Nicotine patch has been ordered 4. Hyperlipidemia. Continue atorvastatin 5. history of depression I performed an examination of the patient and discussed their management with the Nurse Practitioner. I have reviewed the Nurse Practitioner's notes and agree with the documented findings and plan of care
[2018-08-08] MEDS: LOSARTAN 50 MG TAB PO SCH (20:26)
[2018-08-08] MEDS: ATORVASTATIN 40 MG TAB PO SCH (20:34)
[2018-08-09 00:26] VITALS: RESP 16
[2018-08-09 06:17] LABS: Basophils # (A) 0.1 k/uL (0-0.2); Basophils % (A) 1 %; Eosinophils # (A) 0.3 k/uL (0-0.7); Eosinophils % (A) 4 %; HCT 46.2 % (39.0-53.0); HGB 14.6 gm/dL (13.0-17.5); Lymphocytes # (A) 2.3 k/uL (1.0-4.8); Lymphocytes % (A) 26 %; MCH 30.6 pg (25.0-35.0); MCHC 31.6 g/dL (31.0-37.0); MCV 96.7 fL (80.0-100.0); Mean Platelet Volume 7.2; Monocytes # (A) 0.7 k/uL (0-1.0); Monocytes % (A) 7 %; Neutrophils # (A) 5.6 k/uL (1.3-7.7); Neutrophils % (A) 61 %; Platelet Count 224 k/uL (150-450); RBC 4.78 m/uL (4.30-5.90); RDW 12.6 % (11.5-15.5); WBC 9.1 k/uL (3.8-10.6)
[2018-08-09 06:27] LABS: Albumin 3.7 g/dL (3.5-5.0); Calcium 9.3 mg/dL (8.4-10.2); Potassium 5.3 mmol/L (3.5-5.1); Total Bilirubin 0.5 mg/dL (0.2-1.3); Total Protein 6.5 g/dL (6.3-8.2)
[2018-08-09] MEDS: TICAGRELOR 90 MG TAB PO SCH (08:05)
[2018-08-09] MEDS: METOPROLOL TARTRATE 12.5 MG TAB PO SCH (08:05)
[2018-08-09] MEDS: ASPIRIN 81 MG PO SCH (08:05)
[2018-08-09] MEDS: NICOTINE 14MG/24HR PATCH TRANSDERM SCH (08:06)
[2018-08-09 08:55] VITALS: TEMP 97.7
[2018-08-09] MEDS ORDERED: FAMOTIDINE 20 MG TAB PO SCH (09:00)
[2018-08-09] MEDS ORDERED: LOSARTAN 25 MG TAB PO SCH (09:00)
[2018-08-09 10:01] VITALS: BMI 24.2
--- NOTE | 2018-08-09 10:27 | P.PN ---
Subjective Progress Note Date: 08/09/18 This is a 52-year-old gentleman with history of abdominal aortic aneurysm status post aortic stent graft, nicotine dependence, who presented to [facility] with sudden onset of chest pain, he was found to have an acute inferior wall myocardial infarction. Underwent cardiac catheterization by Dr. Swanson with subsequent PTCA and stenting of the proximal right coronary artery by Dr. David Bhandari. Patient does have a second lesion in the circumflex requiring intervention which will be done electively as an outpatient. He did have an episode of shortness of breath while in the shower, mild chest discomfort which is currently relieved at this time. Blood pressure 100/50 with a heart rate in the 60s. White blood cell count 9.2, hemoglobin 14.3, platelet count 236. Sodium 139, potassium 4.7, BUN 10, creatinine 0.9. 08/09/2018 Patient seen and examined this morning, was up ambulating in the hallway, mild intermittent chest discomfort. Pain-free at the time of my examination. Blood pressure 90/60 with a heart rate in the 60s, blood pressure has been running in the mid to low 90s. We will decrease his dose of Cozaar to 12-1/2 mg one tablet daily, continue Ecotrin 81 mg daily, Lipitor 40 mg daily, metoprolol 12-1 /2 mg by mouth twice a day, nicotine patch, Brilinta 90 mg one tablet by mouth twice a day and sublingual nitroglycerin for chest pain. Follow-up appointment in the office with Dr. White post discharge. Objective - Vital Signs Vital signs: Vital Signs Temp 97.7 F 08/09/18 08:00 Pulse 66 08/09/18 08:00 Resp 16 08/09/18 08:00 BP 92/63 08/09/18 08:00 Pulse Ox 91 L 08/09/18 08:00 Intake & Output 08/08/18 08/09/18 08/09/18 18:59 06:59 18:59 Intake Total 642 240 Balance 642 240 Weight 81 kg 81 kg Intake: IV 0 Sodium Chloride 0.9% 1, 0 000 ml @ 20 mls/hr IV . Q24H [facility] Rx#:[id number] Oral 642 240 Other: Voiding Method Toilet Toilet # Voids 3 1 # Bowel Movements 0 0 - Exam PHYSICAL EXAMINATION: GENERAL: 52-year-old gentleman in no acute distress at the time of my examination. HEENT: Head is atraumatic, normocephalic. Pupils equal, round. Sclera anicteric. Conjunctiva are clear. Mucous membranes of the mouth are moist. Neck is supple. There is no elevated jugular venous pressure.No Carotid bruit is heard. HEART EXAMINATION: Heart S1, S2 normal. No murmur or gallop heard. CHEST EXAMINATION: Lungs are clear to auscultation and precussion. Positive chest wall tenderness is noted on palpation or with deep breathing. ABDOMEN: Soft, nontender. Bowel sounds are heard. No organomegaly noted. EXTREMITIES: 2+ peripheral pulses with no evidence of peripheral edema and no calf tenderness noted. Right groin soft, no evidence of any hematoma NEUROLOGIC patient is awake, alert and oriented ?-3. . - Labs CBC & Chem 7: 08/09/18 05:53 08/09/18 05:53 Labs: Abnormal Lab Results - Last 24 Hours (Table) 08/09/18 Range/Units 05:53 Potassium 5.3 H (3.5-5.1) mmol/L Assessment and Plan Plan: Assessment and plan #1 inferior wall myocardial infarction status post angioplasty and stenting of the RCA patient also has a lesion in the circumflex for which intervention will be done electively as an outpatient. 2 hyperlipidemia Plan Echocardiogram with Doppler study was performed which revealed an ejection fraction of 55-60%. We will continue the patient on aspirin 81 mg daily, Lipitor 40 mg, decrease Cozaar to 12.5 mg daily, metoprolol 12-1/2 mg one tablet by mouth twice a day, Brilinta 90 mg one tablet by mouth twice a day, nicotine patch 14 mg every 24 hours and sublingual nitroglycerin as needed for chest pain. Follow-up with Dr. White in the office one week post discharge. DNP note has been reviewed, I agree with a documented findings and plan of care. Patient was seen and examined.
[2018-08-09] MEDS ORDERED: SODIUM POLYSTYRENE SULFONATE 15 GM/60 ML BOTTLE PO STA (10:48)
[2018-08-09] MEDS: traMADol 50 MG TAB PO PRN (11:03)
[2018-08-09 12:41] VITALS: BP 99/61; PULSE 64
--- NOTE | 2018-08-09 13:35 | P.DS ---
Providers Date of admission: 08/06/18 20:14 Expected date of discharge: 08/09/18 Attending physician: Anjel Jeffers Consults: 08/06/18 21:00 Consult Physician Routine Consulting Provider: [facility] Consult Reason/Comments: Post Interventional patient Do you want consulting provider notified?: Already Contacted Placement Type Exists?: Yes Primary care physician: Felisa Wong [facility] Course: Discharge summary 1. Acute inferior wall myocardial infarction status post post coronary stenting to the RCA. Second lesion that will need to be addressed in the future per cardiology. Patient currently on brilenta, asprin, Losartan and Metoprolol. 2-D echo completed showing EF of 55-60%. Patient's Cozaar has been decreased per cardiology services due to blood pressure in the 90s. Patient did have episode of chest discomfort last night. Patient has been cleared for discharge from cardiology standpoint. Patient will be started on Sutter top, Lopressor, Cozaar, Lipitor. Patient to follow up with cardiology outpatient 2. History of abdominal aortic aneurysm repair in 2016 at [facility] 3. Nicotine dependence. Patient educated greater than 3 minutes on smoking cessation. Nicotine patch has been ordered 4. Hyperlipidemia. Continue atorvastatin 5. history of depression 6. Hyperkalemia potassium 5.3. Patient was given Kayexalate. CMP ordered for 3 days and to follow-up closely with PCP Hospital course This is a 52-year-old male patient of Dr. Wong.. Patient presented to the emergency room with complaints of chest pain that radiated down his arms. Patient presented to [facility] and was found to have acute inferior wall myocardial infarction on his EKG. Patient underwent an extended transferred to [facility] for emergent cardiac catheterization and angioplasty. Patient has known past medical history of chest pain, hyperlipidemia, abdominal aortic aneurysm repair at [facility] in 2016, depression and nicotine dependence. Patient received a stent placement to the right coronary artery. Patient does have a second lesion in the left coronary artery and LAD the will need to be addressed at a later time per cardiology. Patient currently on [place] test, losartan, atorvastatin and metoprolol. At this time patient denies chest pain or shortness of breath. Patient denies nausea vomiting or diarrhea. Patient denies any urinary burning or frequency On 08/08/2018 patient has been moved out of the intensive care unit to [facility] care. patient is currently alert and oriented 3 resting comfortably in bed. Patient did complain that he is short of breath with activity and have episodes of chest discomfort last night. Blood pressure has remained marginal 90s systolic throughout the day. Patient's Cozaar has been decreased per cardiology services On 08/09/2018 patient is currently resting comfortably in bed. Patient denies chest pain or shortness of breath at this time. Patient has been up walking without episodes of distress. Patient has been cleared for discharge from cardiology standpoint. Patient did have potassium of 5.3 Plate has been given and repeat CMP ordered for 3 days. Patient to follow-up closely with PCP. I performed an examination of the patient and discussed their management with the Nurse Practitioner. I have reviewed the Nurse Practitioner's notes and agree with the documented findings and plan of care Patient Condition at Discharge: Stable Plan - Discharge Summary Discharge Rx Participant: Yes New Discharge Prescriptions: New Atorvastatin [Lipitor] 40 mg PO HS #30 tab Losartan [Cozaar] 12.5 mg PO DAILY #30 tab Metoprolol Tartrate [Lopressor] 12.5 mg PO BID #60 tab Nicotine 14Mg/24Hr Patch [Habitrol] 1 patch TRANSDERM DAILY #30 patch Nitroglycerin Sl Tabs [Nitrostat] 0.4 mg SUBLINGUAL Q5M PRN #25 tab PRN Reason: Chest Pain Ticagrelor [Brilinta] 90 mg PO BID #60 tab Continue traMADol HCL [Ultram] 50 mg PO TID PRN PRN Reason: Pain Aspirin EC [Ecotrin Low Dose] 81 mg PO DAILY Discontinued Simvastatin [Zocor] 40 mg PO HS Discharge Medication List traMADol HCL [Ultram] 50 mg PO TID PRN 09/18/16 [History] Aspirin EC [Ecotrin Low Dose] 81 mg PO DAILY 08/06/18 [History] Atorvastatin [Lipitor] 40 mg PO HS #30 tab 08/09/18 [Rx] Losartan [Cozaar] 12.5 mg PO DAILY #30 tab 08/09/18 [Rx] Metoprolol Tartrate [Lopressor] 12.5 mg PO BID #60 tab 08/09/18 [Rx] Nicotine 14Mg/24Hr Patch [Habitrol] 1 patch TRANSDERM DAILY #30 patch 08/09/18 [ Rx] Nitroglycerin Sl Tabs [Nitrostat] 0.4 mg SUBLINGUAL Q5M PRN #25 tab 08/09/18 [Rx ] Ticagrelor [Brilinta] 90 mg PO BID #60 tab 08/09/18 [Rx] Follow up Appointment(s)/Referral(s): Felisa Wong DO [Primary Care Provider] - 08/13/18 2:15 pm ([facility]) Sacha Swanson MD [STAFF PHYSICIAN] - 08/15/18 3:00 pm () Ambulatory/Diagnostic Orders: Comprehensive Metabolic Panel [LAB.AMB] Time Frame: 3 Days, Location: None Selected Patient Instructions/Handouts: Heart Attack (DC), How to Stop Smoking (DC), Heart Healthy Diet (DC) Activity/Diet/Wound Care/Special Instructions: Diet heart healthy activity as tolerated Discharge Disposition: HOME SELF-CARE
[2018-08-10] MEDS ORDERED: LOSARTAN 25 MG TAB PO SCH (09:00)
== END 2018-08-09 15:27 | disposition home or self-care (01) | DRG 247 ==
LOC: EDSTATUS 20:12 → 6ICU 20:14 → 6SEL 08-07 10:13
PROVIDERS: ADMIT Internal Medicine; ATTEND Internal Medicine
PROC: B2111ZZ Fluoroscopy of Multiple Coronary Arteries using Low Osmolar Contrast (ICD-10-PCS; 2018-08-06)
PROC: 4A023N7 Measurement of Cardiac Sampling and Pressure, Left Heart, Percutaneous Approach (ICD-10-PCS; principal; 2018-08-06 20:08)
PROC: 027034Z Dilation of Coronary Artery, One Artery with Drug-eluting Intraluminal Device, Percutaneous Approach (ICD-10-PCS; 2018-08-06 20:08)
DX: I21.19 ST elevation (STEMI) myocardial infarction involving other coronary artery of inferior wall (principal); I25.10 Atherosclerotic heart disease of native coronary artery without angina pectoris; I25.84 Coronary atherosclerosis due to calcified coronary lesion; E78.5 Hyperlipidemia, unspecified; E87.5 Hyperkalemia; F10.10 Alcohol abuse, uncomplicated; F17.200 Nicotine dependence, unspecified, uncomplicated; F32.9 Major depressive disorder, single episode, unspecified; Z79.82 Long term (current) use of aspirin; Z79.899 Other long term (current) drug therapy; Z82.49 Family history of ischemic heart disease and other diseases of the circulatory system; Z86.79 Personal history of other diseases of the circulatory system
CPT/HCPCS: 80048; 80053; 83735; 84484; 85025; 93005; 93306; 93458; C1874

== ENCOUNTER → 2018-08-23 | Outpatient (CLI) | payer MEDICARE ==
--- NOTE | 2018-08-26 08:27 | CT ---
EXAMINATION TYPE: CT chest abdomen w con DATE OF EXAM: 08/23/2018 COMPARISON: CTA aorta September 30, 2016. HISTORY: Chest pain after recent [place]. History of aortic aneurysm. CT DLP: 1527 mGycm. Automated Exposure Control for Dose Reduction was Utilized. CONTRAST: CT scan of the thorax and abdomen are performed with oral and with IV Contrast, patient injected with 100ml mL of Isovue 300. FINDINGS: LUNGS: There is mild emphysematous change in the lung apices most prominent right upper lobe. No susp icious consolidation is present. No concerning parenchymal nodule or mass is seen. No pleural effusio n or pneumothorax is evident. MEDIASTINUM: There are no greater than 1 cm hilar or mediastinal lymph nodes. No cardiomegaly or pe ricardial effusion is seen. Coronary artery calcification and/or stents are identified. OTHER: No additional significant abnormality is seen. LIVER/GB: No significant abnormality is appreciated. PANCREAS: No significant abnormality is seen. SPLEEN: No significant abnormality is seen. ADRENALS: No significant abnormality is seen. KIDNEYS: No significant abnormality is seen. BOWEL: No significant abnormality is seen. LYMPH NODES: No greater than 1cm abdominal lymph nodes are appreciated. OSSEOUS STRUCTURES: Postsurgical change to the lower lumbar spine is redemonstrated with artificial d isc material and posterior interpedicular rods and screws transfixing L4-S1 levels. OTHER: There is redemonstration of aortobiiliac stent graft appears patent through the common iliac b ifurcation through aneurysm of the infrarenal abdominal aorta which is smaller in size after stent gr aft placement. Ramona aneurysm measures up to 4.8 cm AP diameter axial image 88. Small fat-containing umbilical hernia near axial image 82. IMPRESSION: Patent aortobiiliac stent graft new from prior study. No suspicious acute findings seen to account for patient's symptoms.
== END | disposition home or self-care (01) ==
LOC: RADCTMAIN 19:07
PROVIDERS: ATTEND Family Medicine
DX: I71.6 Thoracoabdominal aortic aneurysm, without rupture (principal); I25.2 Old myocardial infarction; R07.89 Other chest pain; Z95.828 Presence of other vascular implants and grafts
CPT/HCPCS: 71260; 74160; Q9967

== ENCOUNTER 2018-08-27 22:46 | Inpatient (IN) | payer MEDICARE ==
[2018-08-27] MEDS: NITROGLYCERIN SL TABS 0.4 MG TAB SUBLINGUAL STA ×2 (23:11→23:16)
--- NOTE | 2018-08-27 23:11 | ED ---
Chest Pain HPI - General Chief Complaint: Chest Pain Stated Complaint: chest pain Time Seen by Provider: 08/27/18 22:59 Source: patient, RN notes reviewed Mode of arrival: wheelchair Limitations: no limitations - History of Present Illness Initial Comments: This is a 52-year-old male with a recent history of an inferior wall NC with RCA stent placement also history of abdominal aortic aneurysm repair depression nicotine addiction who presents tonight with complaints of chest pain. He states he had the past several days not feeling well and then tonight prior to admission had chest tightness that he took several nitro's for that did improve down to a 2 or 3/10 in did radiate to his left arm he did develop a headache after the nitroglycerin. No fevers chills nausea vomiting or sweats reported at this time. He she does state it feels similar to his previous episode. MD Complaint: chest pain - Related Data Home Medications Medication Instructions Recorded Confirmed traMADol HCL [Ultram] 50 mg PO TID PRN 09/18/16 08/27/18 Aspirin EC [Ecotrin Low Dose] 81 mg PO DAILY 08/06/18 08/27/18 Previous Rx's Medication Instructions Recorded Atorvastatin [Lipitor] 40 mg PO HS #30 tab 08/09/18 Losartan [Cozaar] 12.5 mg PO DAILY #30 tab 08/09/18 Metoprolol Tartrate [Lopressor] 12.5 mg PO BID #60 tab 08/09/18 Nitroglycerin Sl Tabs [Nitrostat] 0.4 mg SUBLINGUAL Q5M PRN #25 tab 08/09/18 Ticagrelor [Brilinta] 90 mg PO BID #60 tab 08/09/18 Allergies Allergy/AdvReac Type Severity Reaction Status Date / Time bee venom protein (honey bee) Allergy Swelling Verified 08/27/18 23:08 Penicillins Allergy Itching Verified 08/27/18 23:08 Review of Systems ROS Statement: Those systems with pertinent positive or pertinent negative responses have been documented in the HPI. ROS Other: All systems not noted in ROS Statement are negative. EKG Findings - EKG Results: EKG: interpreted by ESTELLA, sinus rhythm (Sinus rhythm rate of 62. Interval 178 QRS duration 104 QT since QTC 380/385 old inferior changes nurse Q waves are noted in lead 3 this is compared with EKG showing an inferior wall acute STEMI on 08/06/18) Past Medical History Past Medical History: Chest Pain / Angina, Hyperlipidemia Additional Past Medical History / Comment(s): ABDOMINAL AORTIC ANEURYSM repair done at [facility] 2016. ., BACK PAIN. History of Any Multi-Drug Resistant Organisms: None Reported Past Surgical History: Back Surgery, Hernia Repair, Tonsillectomy Additional Past Surgical History / Comment(s): INGUINAL HERNIA X2, STATES ABDOMINAL HERNIA SURGERY X2- (VENTRAL HERNIA 06/18/18)., Past Anesthesia/Blood Transfusion Reactions: No Reported Reaction Past Psychological History: Depression Smoking Status: Current every day smoker Past Alcohol Use History: Occasional Past Drug Use History: None Reported - Past Family History Mother Family Medical History: No Reported History Father Family Medical History: Unable to Obtain General Exam - General Exam Comments Initial Comments: This a well-developed well-nourished awake alert oriented times 3 male Limitations: no limitations General appearance: alert, anxious Head exam: Present: atraumatic, normocephalic, normal inspection Eye exam: Present: normal appearance, PERRL, EOMI. Absent: scleral icterus, conjunctival injection, periorbital swelling ENT exam: Present: normal exam, mucous membranes moist Neck exam: Present: normal inspection. Absent: tenderness, meningismus, lymphadenopathy Respiratory exam: Present: normal lung sounds bilaterally. Absent: respiratory distress, wheezes, rales, rhonchi, stridor Cardiovascular Exam: Present: regular rate, normal rhythm, normal heart sounds. Absent: systolic murmur, diastolic murmur, rubs, gallop, clicks GI/Abdominal exam: Present: soft, normal bowel sounds. Absent: distended, tenderness, guarding, rebound, rigid Extremities exam: Present: normal inspection, full ROM, normal capillary refill. Absent: tenderness, pedal edema, joint swelling, calf tenderness Back exam: Present: normal inspection Neurological exam: Present: alert, oriented X3, CN II-XII intact Psychiatric exam: Present: normal affect, normal mood Skin exam: Present: warm, dry, intact, normal color. Absent: rash Course Vital Signs 08/27/18 08/27/18 08/27/18 22:48 22:59 23:00 Temperature 97.9 F Pulse Rate 68 66 Respiratory 18 18 Rate Blood Pressure 137/88 137/88 O2 Sat by Pulse 98 96 97 Oximetry 10/08/27/18 08/27/18 23:10 23:20 23:30 Temperature Pulse Rate 65 70 73 Respiratory 18 18 18 Rate Blood Pressure 127/89 125/78 125/78 O2 Sat by Pulse 98 99 97 Oximetry - Reevaluation(s) Reevaluation #1: 08/28/18 00:02 Reevaluation patient responsive therapy he feels much improved chest pain has currently resolved. Chest Pain MDM - MDM I did review the imaging and report no acute findings. Patient did get relief relief of his chest discomfort with nitroglycerin and oxygen. The clinical presentation is consistent with angina. Patient be admitted for evaluation. I did discuss the case with Dr. Jeffers Critical Care Time Critical Care Time: Yes Critical Care Time: 31 minutes of critical care time which includes initial presentation with history physical labs x-rays several reevaluation the patient responsive therapy monitoring the EMS run and discussed with paramedics. Discussion with the admitting physician and admission orders. Review of old charting that was available. Documentation of the above. Disposition Clinical Impression: Unstable angina pectoris Disposition: ADMITTED IP TO THIS HOSP Condition: Stable Referrals: Felisa Wong DO [Primary Care Provider] - 1-2 days
--- NOTE | 2018-08-27 23:33 | XR ---
EXAMINATION TYPE: XR chest 2V DATE OF EXAM: 08/27/2018 COMPARISON: 09/30/2016 HISTORY: Chest pain TECHNIQUE: Frontal and lateral views of the chest are obtained. FINDINGS: Heart and mediastinum are normal. Lungs are clear. Diaphragm is normal. Bony thorax appear s normal. There are chest leads. IMPRESSION: Normal chest. No change.
[2018-08-27 23:34] LABS: Basophils % (A) 1 %; Eosinophils # (A) 0.4 k/uL (0-0.7); Eosinophils % (A) 5 %; HCT 43.8 % (39.0-53.0); HGB 14.5 gm/dL (13.0-17.5); Lymphocytes # (A) 2.3 k/uL (1.0-4.8); Lymphocytes % (A) 32 %; MCH 31.1 pg (25.0-35.0); MCHC 33.1 g/dL (31.0-37.0); Mean Platelet Volume 6.8; Monocytes # (A) 0.5 k/uL (0-1.0); Monocytes % (A) 8 %; Neutrophils # (A) 3.7 k/uL (1.3-7.7); Neutrophils % (A) 52 %; Platelet Count 259 k/uL (150-450); RBC 4.66 m/uL (4.30-5.90); RDW 12.6 % (11.5-15.5); WBC 7.2 k/uL (3.8-10.6)
[2018-08-27 23:43] LABS: Albumin 4.1 g/dL (3.5-5.0); Calcium 9.7 mg/dL (8.4-10.2); Magnesium 2.1 mg/dL (1.6-2.3); Potassium 4.1 mmol/L (3.5-5.1); Total Bilirubin 0.3 mg/dL (0.2-1.3); Total Protein 7.2 g/dL (6.3-8.2)
[2018-08-27 23:47] LABS: Partial Thromboplastin Time 23.7 sec (22.0-30.0); Prothrombin Time 9.8 sec (9.0-12.0)
[2018-08-28] MEDS ORDERED: HEPARIN SODIUM,PORCINE 5,000 UNIT/ML 1 ML VIAL IV ONE (00:02)
[2018-08-28 00:06] LABS: Creatine Kinase 61 U/L (55-170)
[2018-08-28] MEDS ORDERED: NITROGLYCERIN SL TABS 0.4 MG TAB SUBLINGUAL PRN (00:08)
[2018-08-28] MEDS ORDERED: HEPARIN SOD,PORK IN 0.45% NACL 25,000 UNIT in 0.45% NACL 1 500ML.BAG IV SCH (00:15)
[2018-08-28 00:19] LABS: Creatine Kinase MB 0.7 ng/mL (0.0-2.4); Troponin I <0.012 ng/mL (0.000-0.034)
[2018-08-28] MEDS ORDERED: HEPARIN SODIUM,PORCINE 5,000 UNIT/ML 1 ML VIAL IV PRN (00:40)
[2018-08-28] MEDS ORDERED: NITROGLYCERIN OINT 1 INCH/GM PACKET TOPICAL SCH (06:00)
[2018-08-28 06:52] LABS: Creatine Kinase 50 U/L (55-170)
[2018-08-28 07:05] LABS: Creatine Kinase MB 0.7 ng/mL (0.0-2.4); Troponin I <0.012 ng/mL (0.000-0.034)
[2018-08-28] MEDS ORDERED: ALPRAZolam 0.5 MG TAB PO PRN (09:54)
[2018-08-28] MEDS ORDERED: SODIUM CHLORIDE 0.9% 1,000 ML in EMPTY BAG 1 BAG IV ONE (09:54)
[2018-08-28] MEDS ORDERED: ALPRAZolam 0.25 MG TAB PO PRN (09:54)
[2018-08-28] MEDS: LOSARTAN 25 MG TAB PO SCH (10:19)
[2018-08-28] MEDS: traMADol 50 MG TAB PO PRN ×2 (10:19→20:11)
[2018-08-28] MEDS: METOPROLOL TARTRATE 12.5 MG TAB PO SCH ×2 (10:19→20:11)
[2018-08-28 10:27] LABS: Basophils # (A) 0.1 k/uL (0-0.2); Basophils % (A) 1 %; Eosinophils # (A) 0.4 k/uL (0-0.7); Eosinophils % (A) 5 %; HCT 45.7 % (39.0-53.0); HGB 14.6 gm/dL (13.0-17.5); Lymphocytes # (A) 2.4 k/uL (1.0-4.8); Lymphocytes % (A) 30 %; MCH 30.6 pg (25.0-35.0); MCHC 31.8 g/dL (31.0-37.0); MCV 95.9 fL (80.0-100.0); Mean Platelet Volume 6.8; Monocytes # (A) 0.6 k/uL (0-1.0); Monocytes % (A) 8 %; Neutrophils # (A) 4.2 k/uL (1.3-7.7); Neutrophils % (A) 54 %; Platelet Count 246 k/uL (150-450); RBC 4.76 m/uL (4.30-5.90); RDW 12.6 % (11.5-15.5); WBC 7.8 k/uL (3.8-10.6)
[2018-08-28 10:44] LABS: ALT 49 U/L (21-72); AST 35 U/L (17-59); Albumin 3.7 g/dL (3.5-5.0); Alkaline Phosphatase 84 U/L (38-126); Anion Gap 6 mmol/L; Blood Urea Nitrogen 15 mg/dL (9-20); Calcium 9.4 mg/dL (8.4-10.2); Carbon Dioxide 25 mmol/L (22-30); Chloride 108 mmol/L (98-107); Glucose 95 mg/dL (74-99); Potassium 4.8 mmol/L (3.5-5.1); Sodium 139 mmol/L (137-145); Total Bilirubin 0.4 mg/dL (0.2-1.3); Total Protein 6.6 g/dL (6.3-8.2)
[2018-08-28] MEDS: TICAGRELOR 90 MG TAB PO SCH ×2 (11:02→20:11)
--- NOTE | 2018-08-28 11:07 | P.HPIM ---
History of Present Illness H&P Date: 08/28/18 Chief Complaint: Chest pain and shortness of breath This is a 52-year-old male patient of Dr. Wong. Patient presented with complaints of increased chest pain. Patient states he's had intermittent chest pain for the past 3 weeks but chest pain became severe last night and was unrelieved with several nitros. Patient has a known past medical history of [place] with stent placement to RCA proximally 3 weeks prior. At that time a second lesion was discovered that he be addressed by cardiology in the future. Patient was DC'd home on Brilinta. Patient states he has been taking his Brilenta and his cardiac medications. Additional medical history includes abdominal aortic aneurysm repair in 2016, hyperlipidemia and depression. EKG completed showing normal sinus rhythm. Chest x-ray completed showing normal chest. No change. Cardiology services consulted. Patient started on heparin drip. Plan for cardiac catheterization tomorrow per cardiology services. This time patient does complain of mild discomfort in chest. Patient denies shortness of breath. Patient denies nausea vomiting or diarrhea. Patient denies any urinary burning or frequency. Review of Systems please refer to HPI otherwise unremarkable Past Medical History Past Medical History: Chest Pain / Angina, Hyperlipidemia Additional Past Medical History / Comment(s): ABDOMINAL AORTIC ANEURYSM repair done at [facility] 2016, BACK PAIN. History of Any Multi-Drug Resistant Organisms: None Reported Past Surgical History: Back Surgery, Heart Catheterization With Stent, Hernia Repair, Tonsillectomy Additional Past Surgical History / Comment(s): INGUINAL HERNIA X2, STATES ABDOMINAL HERNIA SURGERY X2- (VENTRAL HERNIA 06/18/18)., Past Anesthesia/Blood Transfusion Reactions: No Reported Reaction Date of Last Stent Placement:: 2017 Past Psychological History: Depression Additional Psychological History / Comment(s): STATES NO PROBLEM WITH DEPRESSION NOW. Smoking Status: Former smoker Past Alcohol Use History: Occasional Additional Past Alcohol Use History / Comment(s): SMOKES 1 PPD, SMOKING FOR 38 YEARS. Past Drug Use History: None Reported - Past Family History Mother Family Medical History: No Reported History Father Family Medical History: Unable to Obtain Medications and Allergies Home Medications Medication Instructions Recorded Confirmed Type traMADol HCL [Ultram] 50 mg PO TID PRN 09/18/16 08/28/18 History Aspirin EC [Ecotrin Low Dose] 81 mg PO DAILY 08/06/18 08/28/18 History Atorvastatin [Lipitor] 40 mg PO HS #30 tab 08/09/18 08/28/18 Rx Losartan [Cozaar] 12.5 mg PO DAILY #30 tab 08/09/18 08/28/18 Rx Metoprolol Tartrate [Lopressor] 12.5 mg PO BID #60 tab 08/09/18 08/28/18 Rx Nitroglycerin Sl Tabs [Nitrostat] 0.4 mg SUBLINGUAL Q5M PRN #25 tab 08/09/18 Rx Ticagrelor [Brilinta] 90 mg PO BID #60 tab 08/09/18 08/28/18 Rx Allergies Allergy/AdvReac Type Severity Reaction Status Date / Time bee venom protein (honey bee) Allergy Swelling Verified 08/28/18 00:58 Penicillins Allergy Itching Verified 08/28/18 00:58 Physical Exam Vitals: Vital Signs Temp Pulse Pulse Resp BP BP Pulse Ox 08/28/18 08:00 97.6 F 57 L 16 97/61 97 08/28/18 03:58 97.6 F 59 L 16 118/66 98 08/28/18 01:07 18 08/28/18 00:59 97.6 F 65 18 113/69 99 08/28/18 00:38 97.7 F 08/28/18 00:30 68 18 115/77 97 08/28/18 00:20 70 18 115/77 97 08/28/18 00:12 62 18 115/77 96 08/28/18 00:10 62 18 115/77 97 08/28/18 00:00 67 18 113/76 97 08/27/18 23:50 71 18 113/76 98 08/27/18 23:40 75 18 113/76 97 08/27/18 23:30 73 18 125/78 97 08/27/18 23:20 70 18 125/78 99 08/27/18 23:10 65 18 127/89 98 08/27/18 23:00 18 137/88 97 08/27/18 22:59 66 18 137/88 96 08/27/18 22:48 97.9 F 68 98 Intake and Output 08/27/18 08/28/18 08/28/18 22:59 06:59 14:59 Intake Total 100 423 Balance 100 423 Intake: IV 100 Heparin Sod,Pork in 0.45% 100 NaCl 25,000 unit In 0.45 % NaCl 1 500ml.bag @ 20 mls/hr IV .Q24H [facility] Rx#: [id number] Intake, IV Titration 187 Amount Heparin Sod,Pork in 0.45% 187 NaCl 25,000 unit In 0.45 % NaCl 1 500ml.bag @ 20 mls/hr IV .Q24H [facility] Rx#: [id number] Oral 236 Other: Voiding Method Toilet # Voids 1 Weight 83.915 kg Head normocephalic Neck supple Lungs clear to auscultation bilaterally no wheezing or crackles Heart regular rate and rhythm S1-S2, no rub or gallop Abdomen is soft nontender nondistended positive bowel sounds no hepatosplenomegaly Extremities no edema Neuro alert and orientated to 3 Results CBC & Chem 7: 08/28/18 09:47 08/28/18 09:47 Labs: Abnormal Lab Results - Last 24 Hours (Table) 08/27/18 08/28/18 08/28/18 Range/Units 23:05 05:18 05:18 APTT 40.7 H (22.0-30.0) sec Chloride (98-107) mmol/L Glucose 140 H (74-99) mg/dL Total Creatine Kinase 50 L (55-170) U/L 08/28/18 Range/Units 09:47 APTT (22.0-30.0) sec Chloride 108 H (98-107) mmol/L Glucose (74-99) mg/dL Total Creatine Kinase (55-170) U/L Thrombosis Risk Factor Assmnt - Choose All That Apply Any of the Below Risk Factors Present?: Yes Each Factor Represents 1 point: Age 41-60 years Other Risk Factors: No Other congenital or acquired thrombophilia - If yes, enter type in comment: No Thrombosis Risk Factor Assessment Total Risk Factor Score: 1 Thrombosis Risk Factor Assessment Level: Low Risk Assessment and Plan Assessment: 1. Chest pain. Patient recently underwent PCI to RCA 3 weeks prior. At that time there was a second lesion seen and patient was to follow up with cardiology service for intervention at a later time. EKG showing normal sinus rhythm. Troponin negative. Plan for cardiac catheterization tomorrow per cardiology services. Patient maintained on heparin drip 2. History of [place] with stent to RCA on 08/09/2018. Patient maintained on Brilinta 3. History of AAA repair in 2016 at [facility] 4. History of depression 5. History of hyperlipidemia 6. History of nicotine dependence. Patient states he has quit for 3 weeks. Patient declined nicotine patch at this time DVT prophylaxis Brilinta. GI prophylaxis Protonix I performed an examination of the patient and discussed their management with the Nurse Practitioner. I have reviewed the Nurse Practitioner's notes and agree with the documented findings and plan of care Time with Patient: Greater than 30 (Greater than 60% of the total time spent in counseling and coordination of care. I performed an examination of the patient and discussed their management with the Nurse Practitioner. I have reviewed the Nurse Practitioner's notes and agree with the documented findings and plan of care)
[2018-08-28] MEDS ORDERED: ACETAMINOPHEN TAB 325 MG TAB PO PRN (11:17)
[2018-08-28] MEDS: ISOSORBIDE MONONITRATE ER 30 MG TAB.ER.24H PO SCH (13:58)
--- NOTE | 2018-08-28 14:12 | P.CRDCN ---
History of Present Illness History of present illness: Mr. Varner is a pleasant 52-year-old male past medical history significant for coronary artery disease s/p recent angioplasty of the RCA with known lesion at the ostial circumflex that is being set up as a planned intervention. He also has dyslipidemia, abdominal aortic aneurysm repair 2016 and is a smoker. He follows with Dr. Swanson in the office. We have been asked to see him in consultation for chest pain. He states since having his recent stent and being discharged home he has had intermittent chest pain in the left precordial region with radiation to the left arm and neck. Seems to be worse with exertion and improves with rest. He also feels mildly short of breath when is having pain. He denies dizziness or palpitations. EKG reveals sinus mechanism with inferior Q waves and T-wave inversions. No acute ST or T wave abnormalities noted. Chest x-ray negative for an acute cardiopulmonary process. Laboratory data reviewed, hemoglobin 14.6, platelets 246, sodium 139, potassium 4.8, magnesium 2.1, creatinine 0.95, cardiac enzymes negative 3, and he proBNP 150. Current cardiac medications include DBrillinta 90 mg daily, aspirin 81 mg daily , atorvastatin 40 mg daily, losartan 12.5 mg daily and Lopressor 12.5 mg twice a day. Recent echocardiogram performed August 07 revealed preserved left ventricular systolic function with ejection fraction 55-60%. At the time of my exam: CONSTITUTIONAL: Denies fever. Denies chills. EYES: Denies blurred vision. Denies vision changes. Denies eye pain. EARS, NOSE, MOUTH & THROAT: Denies headache. Denies sore throat. Denies ear pain. CARDIOVASCULAR: Denies chest pain. Denies shortness of breath. Denies orthopnea. Denies PND. Denies palpitations. RESPIRATORY: Denies cough. GASTROINTESTINAL: Denies abdominal pain. Denies diarrhea. Denies constipation. Denies nausea. Denies vomiting. MUSCULOSKELETAL: Denies myalgias. INTEGUMENTARY: Denies pruitis. Denies rash. NEUROLOGIC: Denies numbness. Denies tingling. Denies weakness. PSYCHIATRIC: Denies anxiety. Denies depression. ENDOCRINE: Denies fatigue. Denies weight change. Denies polydipsia. Denies polyurina. GENITOURINARY: Denies burning, hematuria or urgency with micturation. HEMATOLOGIC: Denies history of anemia. Denies bleeding. Blood pressure 90/62 heart rate 62 afebrile maintaining oxygen saturation on room air GENERAL: This is a 52-year-old male in no apparent distress at the time of my examination. HEENT: Head is atraumatic, normocephalic. Pupils are equal, round. Sclerae anicteric. Conjunctivae are clear. Mucous membranes of the mouth are moist. Neck is supple. There is no jugular venous distention. No carotid bruit is heard. LUNGS: Clear to auscultation no wheezes, rales or rhonchi. No chest wall tenderness is noted on palpation or with deep breathing. HEART: Regular rate and rhythm without murmurs, rubs or gallops. S1 and S2 heard. ABDOMEN: Soft, nontender. Bowel sounds are heard. No organomegaly noted. EXTREMITIES: No evidence of peripheral edema and no calf tenderness noted. VASCULAR: Radial and dorsalis pedis pulses palpated, no evidence of clubbing. NEUROLOGIC: Patient is awake, alert and oriented x3. ASSESSMENT Unstable angina History of coronary artery disease status post recent angioplasty of the RCA with known disease and ostial circumflex Dyslipidemia Hypertension Chronic nicotine dependence History of abdominal aortic aneurysm repair 2016 PLAN Discontinue the heparin infusion as the patient is on aspirin and Brillinta. Discussed with Dr. Bhandari who will do his circumflex intervention tomorrow. Boarded with laboratory secretary and he will be NPO after midnight. Continue aspirin, brillinta, atorvastatin, lisinopril, imdur and lopressor. Thank you kindly for this consultation. Nurse Practitioner note has been reviewed, I agree with a documented findings and plan of care. Patient was seen and examined. Past Medical History Past Medical History: Chest Pain / Angina, Hyperlipidemia Additional Past Medical History / Comment(s): ABDOMINAL AORTIC ANEURYSM repair done at [facility] 2016, BACK PAIN. History of Any Multi-Drug Resistant Organisms: None Reported Past Surgical History: Back Surgery, Heart Catheterization With Stent, Hernia Repair, Tonsillectomy Additional Past Surgical History / Comment(s): INGUINAL HERNIA X2, STATES ABDOMINAL HERNIA SURGERY X2- (VENTRAL HERNIA 06/18/18)., Past Anesthesia/Blood Transfusion Reactions: No Reported Reaction Date of Last Stent Placement:: 2017 Past Psychological History: Depression Additional Psychological History / Comment(s): STATES NO PROBLEM WITH DEPRESSION NOW. Smoking Status: Former smoker Past Alcohol Use History: Occasional Additional Past Alcohol Use History / Comment(s): SMOKES 1 PPD, SMOKING FOR 38 YEARS. Past Drug Use History: None Reported - Past Family History Mother Family Medical History: No Reported History Father Family Medical History: Unable to Obtain Medications and Allergies Home Medications Medication Instructions Recorded Confirmed Type traMADol HCL [Ultram] 50 mg PO TID PRN 09/18/16 08/28/18 History Aspirin EC [Ecotrin Low Dose] 81 mg PO DAILY 08/06/18 08/28/18 History Atorvastatin [Lipitor] 40 mg PO HS #30 tab 08/09/18 08/28/18 Rx Losartan [Cozaar] 12.5 mg PO DAILY #30 tab 08/09/18 08/28/18 Rx Metoprolol Tartrate [Lopressor] 12.5 mg PO BID #60 tab 08/09/18 08/28/18 Rx Nitroglycerin Sl Tabs [Nitrostat] 0.4 mg SUBLINGUAL Q5M PRN #25 tab 08/09/18 Rx Ticagrelor [Brilinta] 90 mg PO BID #60 tab 08/09/18 08/28/18 Rx Allergies Allergy/AdvReac Type Severity Reaction Status Date / Time bee venom protein (honey bee) Allergy Swelling Verified 08/28/18 00:58 Penicillins Allergy Itching Verified 08/28/18 00:58 Physical Exam Vitals: Vital Signs Temp Pulse Pulse Resp BP BP Pulse Ox 08/28/18 12:00 97.5 F L 62 16 98/62 98 08/28/18 08:00 97.6 F 57 L 16 97/61 97 08/28/18 03:58 97.6 F 59 L 16 118/66 98 08/28/18 01:07 18 08/28/18 00:59 97.6 F 65 18 113/69 99 08/28/18 00:38 97.7 F 08/28/18 00:30 68 18 115/77 97 08/28/18 00:20 70 18 115/77 97 08/28/18 00:12 62 18 115/77 96 08/28/18 00:10 62 18 115/77 97 08/28/18 00:00 67 18 113/76 97 08/27/18 23:50 71 18 113/76 98 08/27/18 23:40 75 18 113/76 97 08/27/18 23:30 73 18 125/78 97 08/27/18 23:20 70 18 125/78 99 08/27/18 23:10 65 18 127/89 98 08/27/18 23:00 18 137/88 97 08/27/18 22:59 66 18 137/88 96 08/27/18 22:48 97.9 F 68 98 Intake and Output 08/27/18 08/28/18 08/28/18 22:59 06:59 14:59 Intake Total 100 423 Balance 100 423 Intake: IV 100 Heparin Sod,Pork in 0.45% 100 NaCl 25,000 unit In 0.45 % NaCl 1 500ml.bag @ 20 mls/hr IV .Q24H [facility] Rx#: [id number] Intake, IV Titration 187 Amount Heparin Sod,Pork in 0.45% 187 NaCl 25,000 unit In 0.45 % NaCl 1 500ml.bag @ 20 mls/hr IV .Q24H [facility] Rx#: [id number] Oral 236 Other: Voiding Method Toilet Toilet # Voids 1 Weight 83.915 kg Results 08/28/18 09:47 08/28/18 09:47 Cardiac Enzymes 08/27/18 08/27/18 08/28/18 Range/Units 23:05 23:05 05:18 AST 33 (17-59) U/L CK-MB (CK-2) 0.7 0.7 (0.0-2.4) ng/mL Troponin I <0.012 <0.012 (0.000-0.034) ng/mL 08/28/18 08/28/18 Range/Units 09:47 09:50 AST 35 (17-59) U/L CK-MB (CK-2) (0.0-2.4) ng/mL Troponin I <0.012 (0.000-0.034) ng/mL Coagulation 08/27/18 08/28/18 Range/Units 23:05 05:18 PT 9.8 (9.0-12.0) sec APTT 23.7 40.7 H (22.0-30.0) sec CBC 08/27/18 08/28/18 Range/Units 23:05 09:47 WBC 7.2 7.8 (3.8-10.6) k/uL RBC 4.66 4.76 (4.30-5.90) m/uL Hgb 14.5 14.6 (13.0-17.5) gm/dL Hct 43.8 45.7 (39.0-53.0) % Plt Count 259 246 (150-450) k/uL Comprehensive Metabolic Panel 08/27/18 08/28/18 Range/Units 23:05 09:47 Sodium 140 139 (137-145) mmol/L Potassium 4.1 4.8 (3.5-5.1) mmol/L Chloride 106 108 H (98-107) mmol/L Carbon Dioxide 24 25 (22-30) mmol/L BUN 18 15 (9-20) mg/dL Creatinine 1.15 0.95 (0.66-1.25) mg/dL Glucose 140 H 95 (74-99) mg/dL Calcium 9.7 9.4 (8.4-10.2) mg/dL AST 33 35 (17-59) U/L ALT 51 49 (21-72) U/L Alkaline Phosphatase 80 84 (38-126) U/L Total Protein 7.2 6.6 (6.3-8.2) g/dL Albumin 4.1 3.7 (3.5-5.0) g/dL Current Medications Generic Name Dose Route Start Last Admin Trade Name Freq PRN Reason Stop Dose Admin Acetaminophen 650 mg 08/28/18 11:17 Tylenol Tab PO Q4HR PRN Fever and/ or Pain Alprazolam 0.25 mg 08/28/18 09:54 Xanax PO Q6HR PRN Mild Anxiety Alprazolam 0.5 mg 08/28/18 09:54 Xanax PO Q6HR PRN Moderate Anxiety Aspirin 81 mg 08/29/18 09:00 Aspirin PO DAILY [facility] Atorvastatin Calcium 40 mg 08/28/18 21:00 Lipitor PO HS [facility] Heparin Sodium (Porcine) 0 unit 08/28/18 00:40 08/28/18 10:07 Heparin IV 2,125 unit PER PROTOCOL PRN Administration Low PTT Protocol Sodium Chloride 1,000 ml/ IV 1,000 mls @ 83.91 mls/hr 08/28/18 09:54 Solution IV 08/28/18 21:49 .[id number] ONE 1 ML/KG/HR Isosorbide Mononitrate 30 mg 08/28/18 14:00 Imdur PO DAILY [facility] Losartan Potassium 12.5 mg 08/28/18 09:00 08/28/18 10:19 Cozaar PO 12.5 mg DAILY [facility] Administration Metoprolol Tartrate 12.5 mg 08/28/18 09:00 08/28/18 10:19 Lopressor PO 12.5 mg BID [facility] Administration Nitroglycerin 0.4 mg 08/28/18 00:08 Nitrostat SUBLINGUAL Q5M PRN Chest Pain Pantoprazole Sodium 40 mg 08/29/18 07:30 Protonix PO AC-BRKFST [facility] Ticagrelor 90 mg 08/28/18 09:00 08/28/18 11:02 Brilinta PO 90 mg BID [facility] Administration Tramadol HCl 50 mg 08/28/18 00:10 08/28/18 10:19 Ultram PO 50 mg TID PRN Administration Pain Intake and Output 08/27/18 08/28/18 08/28/18 22:59 06:59 14:59 Intake Total 100 423 Balance 100 423 Intake: IV 100 Heparin Sod,Pork in 0.45% 100 NaCl 25,000 unit In 0.45 % NaCl 1 500ml.bag @ 20 mls/hr IV .Q24H [facility] Rx#: [id number] Intake, IV Titration 187 Amount Heparin Sod,Pork in 0.45% 187 NaCl 25,000 unit In 0.45 % NaCl 1 500ml.bag @ 20 mls/hr IV .Q24H [facility] Rx#: [id number] Oral 236 Other: Voiding Method Toilet Toilet # Voids 1 Weight 83.915 kg 08/28/18 09:47 08/28/18 09:47
[2018-08-28] MEDS: ATORVASTATIN 40 MG TAB PO SCH (20:11)
[2018-08-29] MEDS ORDERED: ASPIRIN 325 MG TAB PO STA (04:33)
[2018-08-29] MEDS: ISOSORBIDE MONONITRATE ER 30 MG TAB.ER.24H PO SCH (05:36)
[2018-08-29] MEDS: METOPROLOL TARTRATE 12.5 MG TAB PO SCH ×2 (05:36→20:04)
[2018-08-29] MEDS: LOSARTAN 25 MG TAB PO SCH (05:36)
[2018-08-29 07:54] LABS: Basophils # (A) 0.1 k/uL (0-0.2); Basophils % (A) 1 %; Eosinophils # (A) 0.4 k/uL (0-0.7); Eosinophils % (A) 5 %; HCT 42.4 % (39.0-53.0); HGB 14.1 gm/dL (13.0-17.5); Lymphocytes # (A) 2.2 k/uL (1.0-4.8); Lymphocytes % (A) 26 %; MCH 31.5 pg (25.0-35.0); MCHC 33.2 g/dL (31.0-37.0); Mean Platelet Volume 6.9; Monocytes # (A) 0.7 k/uL (0-1.0); Monocytes % (A) 9 %; Neutrophils # (A) 4.9 k/uL (1.3-7.7); Neutrophils % (A) 58 %; Platelet Count 223 k/uL (150-450); RBC 4.46 m/uL (4.30-5.90); RDW 12.7 % (11.5-15.5); WBC 8.5 k/uL (3.8-10.6)
[2018-08-29 08:18] LABS: Albumin 3.5 g/dL (3.5-5.0); Calcium 9.3 mg/dL (8.4-10.2); Total Bilirubin 0.4 mg/dL (0.2-1.3); Total Protein 6.3 g/dL (6.3-8.2)
[2018-08-29] MEDS: ASPIRIN 81 MG PO SCH (08:31)
[2018-08-29] MEDS: TICAGRELOR 90 MG TAB PO SCH ×2 (08:46→20:04)
[2018-08-29] MEDS: PANTOPRAZOLE 40 MG TABLET PO SCH (08:46)
[2018-08-29] MEDS ORDERED: ASPIRIN 325 MG TAB PO SCH (09:00)
[2018-08-29] MEDS ORDERED: MIDAZOLAM 2 MG/2 ML VIAL ONE (10:27)
[2018-08-29] MEDS ORDERED: diphenhydrAMINE 50 MG/ML 1 ML VIAL ONE (10:28)
[2018-08-29] MEDS ORDERED: LIDOCAINE 1% INJ 10MG/ML (20 ML MDV) ONE (10:28)
[2018-08-29] MEDS ORDERED: IV FLUID CONTINUATION 1,000 ML IV ONE (10:44)
[2018-08-29] MEDS ORDERED: MIDAZOLAM 2 MG/2 ML VIAL IV ONE (10:59)
[2018-08-29] MEDS ORDERED: diphenhydrAMINE 50 MG/ML 1 ML VIAL IVP ONE (10:59)
[2018-08-29] MEDS ORDERED: LIDOCAINE 1% INJ 10MG/ML (20 ML MDV) SQ ONE (11:03)
[2018-08-29] MEDS ORDERED: MORPHINE SULFATE 4 MG/ML SYRINGE ONE (11:06)
[2018-08-29] MEDS: MORPHINE SULFATE 4 MG/ML SYRINGE IV ONE ×2 (11:08→11:48)
--- NOTE | 2018-08-29 11:11 | P.PN ---
Subjective Progress Note Date: 08/29/18 This is a 52-year-old male patient of Dr. Wong. Patient presented with complaints of increased chest pain. Patient states he's had intermittent chest pain for the past 3 weeks but chest pain became severe last night and was unrelieved with several nitros. Patient has a known past medical history of [place] with stent placement to RCA proximally 3 weeks prior. At that time a second lesion was discovered that he be addressed by cardiology in the future. Patient was DC'd home on Brilinta. Patient states he has been taking his Brilenta and his cardiac medications. Additional medical history includes abdominal aortic aneurysm repair in 2016, hyperlipidemia and depression. EKG completed showing normal sinus rhythm. Chest x-ray completed showing normal chest. No change. Cardiology services consulted. Patient started on heparin drip. Plan for cardiac catheterization tomorrow per cardiology services. This time patient does complain of mild discomfort in chest. Patient denies shortness of breath. Patient denies nausea vomiting or diarrhea. Patient denies any urinary burning or frequency. On 08/29/2018 patient is currently sitting up in chair in room. Patient is alert and oriented 3. Planning for cardiac catheterization and plan stent to the circumflex today per cardiology. This time patient states chest pain or shortness of breath have improved. Patient denies nausea vomiting or diarrhea. Denies any Urinary burning or frequency Objective - Vital Signs Vital signs: Vital Signs Temp 98.0 F 08/29/18 08:00 Pulse 64 08/29/18 08:00 Resp 18 08/29/18 08:00 BP 101/63 08/29/18 08:00 Pulse Ox 94 L 08/29/18 08:00 Intake & Output 08/28/18 08/29/18 08/29/18 18:59 06:59 18:59 Intake Total 663 Balance 663 Weight 83.9 kg Intake: Intake, IV Titration 187 Amount Heparin Sod,Pork in 0.45% 187 NaCl 25,000 unit In 0.45 % NaCl 1 500ml.bag @ 20 mls/hr IV .Q24H [facility] Rx#: [id number] Oral 476 Other: Voiding Method Toilet Toilet - Exam Head normocephalic Neck supple Lungs clear to auscultation bilaterally no wheezing or crackles Heart regular rate and rhythm S1-S2, no rub or gallop Abdomen is soft nontender nondistended positive bowel sounds no hepatosplenomegaly Extremities no edema Neuro alert and orientated to 3 - Labs CBC & Chem 7: 08/29/18 07:42 08/29/18 07:42 Labs: Abnormal Lab Results - Last 24 Hours (Table) 08/29/18 Range/Units 07:42 HDL Cholesterol 38 L (40-60) mg/dL Assessment and Plan Assessment: 1. Chest pain. Patient recently underwent PCI to RCA 3 weeks prior. At that time there was a second lesion seen and patient was to follow up with cardiology service for intervention at a later time. EKG showing normal sinus rhythm. Troponin negative. Plan for cardiac catheterization tomorrow per cardiology services. Patient maintained on heparin drip. Per cardiology heparin drip has been discontinued. Patient maintained on aspirin and Brilinta. Patient to undergo PCI to circumflex today with Dr. Bhandari 2. History of [place] with stent to RCA on 08/09/2018. Patient maintained on Brilinta 3. History of AAA repair in 2015 at [facility] 4. History of depression 5. History of hyperlipidemia 6. History of nicotine dependence. Patient states he has quit for 3 weeks. Patient declined nicotine patch at this time DVT prophylaxis Brilinta. GI prophylaxis Protonix I performed an examination of the patient and discussed their management with the Nurse Practitioner. I have reviewed the Nurse Practitioner's notes and agree with the documented findings and plan of care
[2018-08-29] MEDS: HEPARIN SODIUM 1,000 UN/ML (10ML VL) IV ONE ×2 (11:15→11:45)
[2018-08-29] MEDS ORDERED: HEPARIN SODIUM 1,000 UN/ML (10ML VL) ONE (11:16)
[2018-08-29] MEDS ORDERED: IOPAMIDOL-370 100ML BTL INJ ONE ×2 (11:32→11:48)
[2018-08-29] MEDS ORDERED: niCARdipine Syringe (1,000 mcg/10 mL) INTRACORON ONE (11:33)
[2018-08-29] MEDS ORDERED: IOPAMIDOL-370 50ML BTL INJ ONE (11:40)
[2018-08-29] MEDS ORDERED: NITROGLYCERIN 1000MCG/10ML SYRINGE INTRACORON ONE (11:43)
[2018-08-29] MEDS ORDERED: SODIUM CHLORIDE 0.9% 1,000 ML IV ONE (11:50)
[2018-08-29] MEDS ORDERED: RX INFO: IV CONTRAST WAS GIVEN 1 EACH MISC MISCELLANE PRN (12:10)
[2018-08-29] MEDS ORDERED: NITROGLYCERIN SL TABS 0.4 MG TAB SUBLINGUAL PRN (12:10)
[2018-08-29] MEDS ORDERED: ATROPINE SULFATE 0.1 MG/ML 10ML SYRINGE IV PRN (12:10)
[2018-08-29] MEDS ORDERED: ZOLPIDEM 5 MG TAB PO PRN (12:10)
[2018-08-29] MEDS ORDERED: MAG HYDROX/AL HYDROX/SIMETH 30 ML CUP PO PRN (12:10)
--- NOTE | 2018-08-29 14:00 | PTCA ---
PERCUTANEOUSTRANS CORORONARY ANGIOGRAPHY DATE OF SERVICE: 08/29/2018. PROCEDURE: 1. Selective coronary angiography of right coronary artery. 2. PTCA and stenting off the ostial circumflex and first obtuse marginal branch of circumflex with a drug-eluting stent. PERFORMED BY: Dr. David Bhandari. Moderate conscious sedation time was 46 minutes. Patient was administered Benadryl, Versed and morphine sulfate and his oxygen saturation, hemodynamics and EKG were monitored closely. CLINICAL INFORMATION: Mr. Severiano Varner is a 52-year-old gentleman who presented with acute inferior NV and underwent stenting of a totally occluded RCA performed in the setting of ST-elevation NV on August 06. Subsequently, he was known to have a significant lesion involving the ostium of the circumflex and proximal portion of the first obtuse marginal, but the groove branch was free of significant disease. Given the proximity of the lesion to the left main, he was advised medical therapy for single-vessel disease, but the patient comes into the hospital with chest pain suggestive of angina without EKG changes or enzymatic elevation. After due discussion regarding the high risk situation and the location of the stenosis, he was advised repeat cardiac cath to check patency of RCA and then intervention of circumflex. I spoke to the patient and in great detail before the procedure after an extensive discussion yesterday in his room. PROCEDURE NOTE: Under local anesthesia and strict aseptic precautions, a 6-[place] introducer was placed in the right femoral artery. Using a standard right Darrell catheter, I performed selective coronary angiography of the right coronary artery and noted that this was widely patent without any restenosis at the site of previous intervention. I then turned my attention to the circumflex system. I used a standard left Darrell type guide catheter to cannulate the left coronary artery and a run-through wire was used to cross the lesion in the circumflex and wire was kept distally. Without predilatation, I performed a stenting of the ostium of the circumflex as well as the stent extending into the first obtuse marginal. This was a 2.5 caliber 8 mm long Xience stent deployed at 13 to 14 atmospheres. The stent did not expand in the distal portion, but in the ostium, it was very well expanded. I then used a 2.758 mm NC Trek balloon and gave additional 14 atmospheres within the stent. Excellent angiographic result was achieved. The groove branch was preserved without any compromise in flow or caliber. However, at the distal aspect of the stented area, there seemed to be a hazy area suggestive of some flap and also patient had some chest discomfort without EKG changes. I addressed this with another 8 mm long 2.5 caliber Xience stent and telescoped this into the previously placed stent. Excellent angiographic result without complication was achieved. Patient received heparin 6000 units. He was already on Brilinta and aspirin. His ACT was about 312. Excellent angiographic result without complication was achieved. I then took the sheath out and used a Perclose device to secure hemostasis and he was sent to the room in a stable condition. Results were discussed with the patient and also his who came somewhat late after the procedure. I expect he will be discharged tomorrow if he remains stable. MMODL / IJN: [id number] /
[2018-08-29] MEDS: SODIUM CHLORIDE 0.9% 1,000 ML IV SCH (14:45)
[2018-08-29] MEDS: traMADol 50 MG TAB PO PRN (15:44)
--- NOTE | 2018-08-29 18:09 | ECHOF ---
Referral Reason:Assess LV FX, CAD S/P INF CA and PCI RCA,LCX MEASUREMENTS -------- HEIGHT: 182.9 cm WEIGHT: 83.5 kg BP: 101/63 RVIDd: 2.8 cm (< 3.3) IVSd: 1.1 cm (0.6 - 1.1) LVIDd: 3.7 cm (3.9 - 5.3) LVPWd: 1.1 cm (0.6 - 1.1) IVSs: 1.2 cm LVIDs: 2.6 cm LVPWs: 1.3 cm LAESV Index (A-L): 18.33 ml/m Ao Diam: 3.7 cm (2.0 - 3.7) AV Cusp: 2.0 cm (1.5 - 2.6) LA Diam: 2.9 cm (2.7 - 3.8) EPSS: 0.6 cm MV E José: 0.76 m/s MV DecT: 226 ms MV A José: 0.71 m/s MV E/A Ratio: 1.07 RAP: 5.00 mmHg RVSP: 11.59 mmHg MV EF SLOPE: 117.65 mm/s (70 - 150) MV EXCURSION: 2.16 cm (> 18.000) FINDINGS -------- Sinus rhythm. This was a technically good study. The left ventricular size is normal. Left ventricular wall thickness is normal. Overall left vent ricular systolic function is normal with, an EF between 55 - 60 %. The right ventricle is normal in size and function. Normal LA size by volume 22+/-6 ml/m2. The right atrium is normal in size. Aortic valve is trileaflet and is mildly thickened. Trace amount of aortic regurgitation. There is no evidence of aortic stenosis. The mitral valve leaflets are mildly thickened. There is trace to mild mitral regurgitation. Trace tricuspid regurgitation present. Right ventricular systolic pressure is normal at < 35 mmHg. There is no evidence of pulmonary hypertension. The pulmonic valve was not well visualized. The aortic root size is normal. IVC Not well visulized. There is no pericardial effusion. CONCLUSIONS -------- 1. Sinus rhythm. 2. This was a technically good study. 3. The left ventricular size is normal. 4. Left ventricular wall thickness is normal. 5. Overall left ventricular systolic function is normal with, an EF between 55 - 60 %. 6. Normal LA size by volume 22+/-6 ml/m2. 7. Aortic valve is trileaflet and is mildly thickened. 8. Trace amount of aortic regurgitation. 9. The mitral valve leaflets are mildly thickened. 10. There is trace to mild mitral regurgitation. 11. Trace tricuspid regurgitation present. 12. Right ventricular systolic pressure is normal at < 35 mmHg. 13. There is no evidence of pulmonary hypertension. 14. The pulmonic valve was not well visualized. 15. The aortic root size is normal. 16. IVC Not well visulized. 17. There is no pericardial effusion. SHELLFISH MANAGER: Leoncio Velásquez RDCS
[2018-08-29] MEDS: ATORVASTATIN 40 MG TAB PO SCH (20:04)
[2018-08-29 21:07] LABS: Glucose,Whole Blood 120 mg/dL (75-99)
[2018-08-30] MEDS: SODIUM CHLORIDE 0.9% 1,000 ML IV SCH (02:55)
[2018-08-30 06:22] LABS: Glucose,Whole Blood 95 mg/dL (75-99)
[2018-08-30] MEDS: PANTOPRAZOLE 40 MG TABLET PO SCH (06:26)
[2018-08-30 06:41] LABS: Basophils % (A) 0 %; Eosinophils # (A) 0.4 k/uL (0-0.7); Eosinophils % (A) 4 %; HCT 42.4 % (39.0-53.0); HGB 13.9 gm/dL (13.0-17.5); Lymphocytes # (A) 1.8 k/uL (1.0-4.8); Lymphocytes % (A) 21 %; MCH 30.8 pg (25.0-35.0); MCHC 32.8 g/dL (31.0-37.0); Mean Platelet Volume 6.8; Monocytes # (A) 0.6 k/uL (0-1.0); Monocytes % (A) 7 %; Neutrophils # (A) 5.7 k/uL (1.3-7.7); Neutrophils % (A) 66 %; Platelet Count 220 k/uL (150-450); RBC 4.51 m/uL (4.30-5.90); RDW 12.7 % (11.5-15.5); WBC 8.6 k/uL (3.8-10.6)
[2018-08-30 06:49] LABS: Anion Gap 6 mmol/L; Blood Urea Nitrogen 16 mg/dL (9-20); Carbon Dioxide 25 mmol/L (22-30); Chloride 108 mmol/L (98-107); Glucose 99 mg/dL (74-99); Potassium 4.7 mmol/L (3.5-5.1); Sodium 139 mmol/L (137-145)
[2018-08-30 07:59] VITALS: RESP 17
[2018-08-30] MEDS: TICAGRELOR 90 MG TAB PO SCH (08:08)
[2018-08-30] MEDS: traMADol 50 MG TAB PO PRN (08:08)
[2018-08-30] MEDS: ISOSORBIDE MONONITRATE ER 30 MG TAB.ER.24H PO SCH (08:09)
[2018-08-30] MEDS: LOSARTAN 25 MG TAB PO SCH (08:09)
[2018-08-30] MEDS: METOPROLOL TARTRATE 12.5 MG TAB PO SCH (08:09)
[2018-08-30] MEDS: ASPIRIN 81 MG PO SCH (08:09)
[2018-08-30 10:54] VITALS: BMI 25.0
--- NOTE | 2018-08-30 11:28 | P.DS ---
Providers Date of admission: 08/28/18 15:03 Expected date of discharge: 08/30/18 Attending physician: Anjel Jeffers Consults: 08/28/18 00:08 Consult Physician Urgent Consulting Provider: Albino Fan Consult Reason/Comments: Unstable angina Do you want consulting provider notified?: Yes, Notify in am 08/29/18 12:10 Consult Physician Routine Consulting Provider: [facility] Consult Reason/Comments: Post Interventional patient Do you want consulting provider notified?: Already Contacted Primary care physician: Felisa Wong [facility] Course: Discharge diagnosis . Chest pain. Patient recently underwent PCI to RCA 3 weeks prior. At that time there was a second lesion seen and patient was to follow up with cardiology service for intervention at a later time. EKG showing normal sinus rhythm. Troponin negative. Plan for cardiac catheterization tomorrow per cardiology services. Patient maintained on heparin drip. Per cardiology heparin drip has been discontinued. Patient maintained on aspirin and Brilinta. Patient underwent scheduled PCI to circumflex yesterday with Dr. Bhandari. Discussed case with Caro arechiga per cardiology services. Patient has been cleared for discharge from cardiology standpoint. Patient will be maintained on Brilinta. Patient started on Imdur per cardiology services 2. History of ID with stent to RCA on 08/09/2018. Patient maintained on Brilinta 3. History of AAA repair in 2016 at [facility] 4. History of depression 5. History of hyperlipidemia 6. History of nicotine dependence. Patient states he has quit for 3 weeks. Patient declined nicotine patch at this time Hospital course This is a 52-year-old male patient of Dr. Wong. Patient presented with complaints of increased chest pain. Patient states he's had intermittent chest pain for the past 3 weeks but chest pain became severe last night and was unrelieved with several nitros. Patient has a known past medical history of ID with stent placement to RCA proximally 3 weeks prior. At that time a second lesion was discovered that he be addressed by cardiology in the future. Patient was DC'd home on Brilinta. Patient states he has been taking his Brilenta and his cardiac medications. Additional medical history includes abdominal aortic aneurysm repair in 2016, hyperlipidemia and depression. EKG completed showing normal sinus rhythm. Chest x-ray completed showing normal chest. No change. Cardiology services consulted. Patient started on heparin drip. Plan for cardiac catheterization tomorrow per cardiology services. This time patient does complain of mild discomfort in chest. Patient denies shortness of breath. Patient denies nausea vomiting or diarrhea. Patient denies any urinary burning or frequency. On 08/29/2018 patient is currently sitting up in chair in room. Patient is alert and oriented 3. Planning for cardiac catheterization and plan stent to the circumflex today per cardiology. This time patient states chest pain or shortness of breath have improved. Patient denies nausea vomiting or diarrhea. Denies any Urinary burning or frequency On 08/30/2018 patient is currently lying comfortably in bed. Patient states chest pain has resolved since intervention completion yesterday. Patient states he's been up walking with no discomfort. Patient states he is eager to go home. Patient denies chest pain or shortness of breath. Patient denies nausea vomiting or diarrhea. Patient denies any urinary burning or frequency. Patient instructed to follow-up closely with PCP and cardiology services. I performed an examination of the patient and discussed their management with the Nurse Practitioner. I have reviewed the Nurse Practitioner's notes and agree with the documented findings and plan of care Patient Condition at Discharge: Stable Plan - Discharge Summary Discharge Rx Participant: No New Discharge Prescriptions: New Isosorbide Mononitrate ER [Imdur] 30 mg PO DAILY #30 tab.er.24h Nitroglycerin Sl Tabs [Nitrostat] 0.4 mg SUBLINGUAL Q5M PRN #25 tab PRN Reason: Chest Pain Continue traMADol HCL [Ultram] 50 mg PO TID PRN PRN Reason: Pain Aspirin EC [Ecotrin Low Dose] 81 mg PO DAILY Atorvastatin [Lipitor] 40 mg PO HS #30 tab Losartan [Cozaar] 12.5 mg PO DAILY #30 tab Metoprolol Tartrate [Lopressor] 12.5 mg PO BID #60 tab Ticagrelor [Brilinta] 90 mg PO BID #60 tab Discontinued Nitroglycerin Sl Tabs [Nitrostat] 0.4 mg SUBLINGUAL Q5M PRN #25 tab PRN Reason: Chest Pain Discharge Medication List traMADol HCL [Ultram] 50 mg PO TID PRN 09/18/16 [History] Aspirin EC [Ecotrin Low Dose] 81 mg PO DAILY 08/06/18 [History] Atorvastatin [Lipitor] 40 mg PO HS #30 tab 08/09/18 [Rx] Losartan [Cozaar] 12.5 mg PO DAILY #30 tab 08/09/18 [Rx] Metoprolol Tartrate [Lopressor] 12.5 mg PO BID #60 tab 08/09/18 [Rx] Ticagrelor [Brilinta] 90 mg PO BID #60 tab 08/09/18 [Rx] Isosorbide Mononitrate ER [Imdur] 30 mg PO DAILY #30 tab.er.24h 08/30/18 [Rx] Nitroglycerin Sl Tabs [Nitrostat] 0.4 mg SUBLINGUAL Q5M PRN #25 tab 08/30/18 [Rx ] Follow up Appointment(s)/Referral(s): Felisa Wong DO [Primary Care Provider] - 1-2 days Sacha Swanson MD [STAFF PHYSICIAN] - 1 Week Activity/Diet/Wound Care/Special Instructions: Diet heart healthy Activity as tolerated Discharge Disposition: HOME SELF-CARE
[2018-08-30 11:34] LABS: Glucose,Whole Blood 93 mg/dL (75-99)
[2018-08-30 14:05] VITALS: BP 117/86; PULSE 82; TEMP 98.2
--- NOTE | 2018-08-30 14:36 | P.PN ---
Subjective Progress Note Date: 08/30/18 Mr. Varner is a pleasant 52-year-old male past medical history significant for coronary artery disease s/p recent angioplasty of the RCA with known lesion at the ostial circumflex that is being set up as a planned intervention. He also has dyslipidemia, abdominal aortic aneurysm repair 2016 and is a smoker. He follows with Dr. Swanson in the office.patient presented to the hospital with symptoms of chest discomfort. He was taken to the cardiac catheterization labwhere he underwent PTCA and stenting of the ostial circumflex and first obtuse marginal branch of the circumflex by Dr. Bhandari. Patient was seen and examined this morning, states he had some mild chest discomfort earlier but at the time of my examination was chest pain-free. He's been up ambulating in the hallway without any difficulty. EKG shows normal sinus rhythm with no changes post-PCI.blood pressure 118/86, heart rate in the 80s, 96% on room air.White blood cell count 8.6, hemoglobin 13.9, platelet count 220. Sodium 139, potassium 4.7, BUN 16, creatinine 1.0. Objective - Vital Signs Vital signs: Vital Signs Temp 98.2 F 08/30/18 12:00 Pulse 82 08/30/18 12:00 Resp 17 08/30/18 12:00 BP 117/86 08/30/18 12:00 Pulse Ox 96 08/30/18 12:00 Intake & Output 08/29/18 08/30/18 08/30/18 18:59 06:59 18:59 Intake Total 1160 520 Output Total 600 Balance 560 520 Weight 83.9 kg Intake: IV 500 Oral 660 520 Output: Urine 600 Other: Voiding Method Toilet Toilet Toilet - Exam PHYSICAL EXAMINATION: GENERAL:52-year-old gentleman in no acute distress at the time of my examination HEENT: Head is atraumatic, normocephalic. Pupils equal, round. Sclera anicteric. Conjunctiva are clear. Mucous membranes of the mouth are moist. Neck is supple. There is no elevated jugular venous pressure.no carotid bruit is heard. HEART EXAMINATION: [Heart S1, S2 normal. No murmur or gallop heard.] CHEST EXAMINATION:[ Lungs are clear to auscultation and precussion. No chest wall tenderness is noted on palpation or with deep breathing.] ABDOMEN: [ Soft, nontender. Bowel sounds are heard. No organomegaly noted]. EXTREMITIES:[ 2+ peripheral pulses with no evidence of peripheral edema and no calf tenderness noted].right groin soft, no evidence of any hematoma. NEUROLOGIC [patient is awake, alert and oriented X3.] . - Labs CBC & Chem 7: 08/30/18 06:11 08/30/18 06:11 Labs: Abnormal Lab Results - Last 24 Hours (Table) 08/29/18 08/30/18 Range/Units 21:05 06:11 Chloride 108 H (98-107) mmol/L POC Glucose (mg/dL) 120 H (75-99) mg/dL Assessment and Plan Plan: assessment and plan #1 status post angioplasty and stenting of the ostial circumflex and first obtuse marginal branch of the circumflex. #2 unstable angina #3 known coronary artery disease with recent angioplasty and stenting of the RCA #4 hyperlipidemia #5 hypertension #6 nicotine dependence #7 history of aortic aneurysm repair Plan From cardiology's perspective, patient may be able to be discharged home today. We'll make him a follow-up appointment in the office one week post discharge.patient will be discharged home on aspirin 81 mg daily, Lipitor 40 mg daily, Imdur 30 mg daily, Cozaar 12-1/2 mg daily, metoprolol 12-1/2 mg one tablet by mouth twice a day, Brilinta 90 mg one tablet by mouth twice a day and sublingual nitroglycerin as needed for chest pain DNP note has been reviewed, I agree with a documented findings and plan of care. Patient was seen and examined.
== END 2018-08-30 14:34 | disposition home or self-care (01) | DRG 246 ==
LOC: EC 22:46 → 1SOBS 08-28 00:08 → OBSVTOIN 08-28 15:03 → 1SOBS 08-28 23:29 → 3SCARD 08-29 13:46
PROVIDERS: ADMIT Internal Medicine; ATTEND Internal Medicine
PROC: B2111ZZ Fluoroscopy of Multiple Coronary Arteries using Low Osmolar Contrast (ICD-10-PCS; principal; 2018-08-29 10:30)
PROC: 027034Z Dilation of Coronary Artery, One Artery with Drug-eluting Intraluminal Device, Percutaneous Approach (ICD-10-PCS; principal; 2018-08-29 10:30)
DX: I25.110 Atherosclerotic heart disease of native coronary artery with unstable angina pectoris (principal); I21.19 ST elevation (STEMI) myocardial infarction involving other coronary artery of inferior wall; I25.82 Chronic total occlusion of coronary artery; E78.5 Hyperlipidemia, unspecified; I10 Essential (primary) hypertension; F32.9 Major depressive disorder, single episode, unspecified; Z95.5 Presence of coronary angioplasty implant and graft; Z87.891 Personal history of nicotine dependence; Z79.82 Long term (current) use of aspirin; Z79.899 Other long term (current) drug therapy; Z79.02 Long term (current) use of antithrombotics/antiplatelets; Z98.890 Other specified postprocedural states; Z86.79 Personal history of other diseases of the circulatory system
CPT/HCPCS: 36415; 71046; 80048; 80053; 80061; 82550; 82553; 83735; 83880; 84484; 85025; 85610; 85730; 93005; 93306; 93458; 96374; 99291; C1874

== ENCOUNTER 2018-09-15 14:27 | Inpatient (IN) | payer MEDICARE ==
[2018-09-15] MEDS ORDERED: ASPIRIN 81 MG PO STA (14:58)
[2018-09-15] MEDS ORDERED: NITROGLYCERIN OINT 1 INCH/GM PACKET TOPICAL STA (14:58)
[2018-09-15] MEDS ORDERED: HEPARIN SODIUM,PORCINE 5,000 UNIT/ML 1 ML VIAL IV ONE (15:05)
--- NOTE | 2018-09-15 15:05 | ED ---
General Adult HPI - General Chief complaint: Chest Pain Stated complaint: Chest pain/Hx Heart Attack Time Seen by Provider: 09/15/18 14:30 Source: patient, RN notes reviewed Mode of arrival: wheelchair Limitations: no limitations - History of Present Illness Initial comments: This a 53-year-old male who presents emergency Department complaining of chest pain. Patient states he has a recent past medical history of 3 stents placed approximately 1 month ago. Patient states today he started about 2 hours prior to arrival it radiated to his jaw and up into his arm. Patient states she was also short of breath with this. Patient states most of the symptoms are gone away but he still feels a little pressure in the left side of his chest. Patient denies any diaphoretic episodes. Patient denies any nausea vomiting diarrhea per patient denies any abdominal pain. Patient denies any palpitations. Patient denies headache patient denies numbness weakness. Patient denies any leg swelling or calf tenderness. Patient states she supposed be on a blood thinner but he couldn't afford it so he stopped taking it. - Related Data Home Medications Medication Instructions Recorded Confirmed traMADol HCL [Ultram] 50 mg PO TID PRN 09/18/16 08/28/18 Aspirin EC [Ecotrin Low Dose] 81 mg PO DAILY 08/06/18 08/28/18 Previous Rx's Medication Instructions Recorded Atorvastatin [Lipitor] 40 mg PO HS #30 tab 08/09/18 Losartan [Cozaar] 12.5 mg PO DAILY #30 tab 08/09/18 Metoprolol Tartrate [Lopressor] 12.5 mg PO BID #60 tab 08/09/18 Ticagrelor [Brilinta] 90 mg PO BID #60 tab 08/09/18 Isosorbide Mononitrate ER [Imdur] 30 mg PO DAILY #30 tab.er.24h 08/30/18 Nitroglycerin Sl Tabs [Nitrostat] 0.4 mg SUBLINGUAL Q5M PRN #25 tab 08/30/18 Allergies Allergy/AdvReac Type Severity Reaction Status Date / Time bee venom protein (honey bee) Allergy Swelling Verified 09/15/18 14:35 Penicillins Allergy Itching Verified 09/15/18 14:35 Review of Systems ROS Statement: Those systems with pertinent positive or pertinent negative responses have been documented in the HPI. ROS Other: All systems not noted in ROS Statement are negative. Past Medical History Past Medical History: Chest Pain / Angina, Hyperlipidemia, Myocardial Infarction (NE) Additional Past Medical History / Comment(s): ABDOMINAL AORTIC ANEURYSM repair done at [facility] 2016, BACK PAIN. History of Any Multi-Drug Resistant Organisms: None Reported Past Surgical History: Back Surgery, Heart Catheterization With Stent, Hernia Repair, Tonsillectomy Additional Past Surgical History / Comment(s): INGUINAL HERNIA X2, STATES ABDOMINAL HERNIA SURGERY X2- (VENTRAL HERNIA 06/18/18)., Past Anesthesia/Blood Transfusion Reactions: No Reported Reaction Date of Last Stent Placement:: 2017 Past Psychological History: Depression Smoking Status: Former smoker Past Alcohol Use History: Occasional Past Drug Use History: None Reported - Past Family History Mother Family Medical History: No Reported History Father Family Medical History: Unable to Obtain General Exam - General Exam Comments Initial Comments: GENERAL: Patient is well-developed and well-nourished. Patient is nontoxic and well- hydrated and is in no acute distress. ENT: Neck is soft and supple. No significant lymphadenopathy is noted. Oropharynx is clear. Moist mucous membranes. Neck has full range of motion without eliciting any pain. There is no thyroid enlargement and no masses were felt. EYES: The sclera were anicteric and conjunctiva were pink and moist. Extraocular movements were intact and pupils were equal round and reactive to light. Eyelids were unremarkable. PULMONARY: Unlabored respirations. Good breath sounds bilaterally. No audible rales rhonchi or wheezing was noted. CARDIOVASCULAR: There is a regular rate and rhythm without any murmurs gallops or rubs. ABDOMEN: Soft and nontender with normal bowel sounds. No palpable organomegaly was noted. There is no palpable pulsatile mass. SKIN: Skin is clear with no lesions or rashes and otherwise unremarkable. NEUROLOGIC: Patient is alert and oriented x3. Cranial nerves II through XII are grossly intact. Motor and sensory are also intact. Normal speech, volume and content. Symmetrical smile. MUSCULOSKELETAL: Normal extremities with adequate strength and full range of motion. No lower extremity swelling or edema. No calf tenderness. LYMPHATICS: No significant lymphadenopathy is noted PSYCHIATRIC: Normal psychiatric evaluation. Limitations: no limitations Course Vital Signs 09/15/18 09/15/18 14:32 15:38 Temperature 97.5 F L Pulse Rate 76 68 Respiratory 18 18 Rate Blood Pressure 105/67 104/73 O2 Sat by Pulse 97 97 Oximetry Medical Decision Making - Medical Decision Making EKG shows normal sinus rhythm at 75 bpm NH interval 160 QRS is 90 QT interval 370 QTC is 413 per patient's EKG shows no ST segment elevation or depression or T wave abnormalities are noted. I compared this EKG to an old EKG and there are no acute changes. Chest x-ray shows no acute abnormality. I started the patient heparin secondary to his past medical history and his clinical presentation today. Patient was diagnosed unstable angina. I spoke with Dr. Balbuena he agreed to admit the patient admitted the patient I consult to cardiology I continued heparin and aspirin Nitropaste on the floor. - Lab Data Result diagrams: 09/15/18 15:20 Lab Results 09/15/18 09/15/18 09/15/18 Range/Units 15:20 15:20 15:20 WBC 6.4 (3.8-10.6) k/uL RBC 4.53 (4.30-5.90) m/uL Hgb 14.3 (13.0-17.5) gm/dL Hct 41.7 (39.0-53.0) % MCV 92.2 (80.0-100.0) fL MCH 31.7 (25.0-35.0) pg MCHC 34.4 (31.0-37.0) g/dL RDW 12.9 (11.5-15.5) % Plt Count 221 (150-450) k/uL Neutrophils % 53 % Lymphocytes % 28 % Monocytes % 10 % Eosinophils % 7 % Basophils % 0 % Neutrophils # 3.4 (1.3-7.7) k/uL Lymphocytes # 1.8 (1.0-4.8) k/uL Monocytes # 0.6 (0-1.0) k/uL Eosinophils # 0.4 (0-0.7) k/uL Basophils # 0.0 (0-0.2) k/uL PT 9.7 (9.0-12.0) sec INR 1.0 (<1.2) APTT 23.3 (22.0-30.0) sec Total Creatine Kinase 56 (55-170) U/L CK-MB (CK-2) 0.6 (0.0-2.4) ng/mL CK-MB (CK-2) Rel Index 1.1 Troponin I <0.012 (0.000-0.034) ng/mL Critical Care Time Critical Care Time: Yes Total Critical Care Time: 35 Disposition Clinical Impression: Unstable angina Disposition: ADMITTED IP TO THIS HOSP Time of Disposition: 16:12
[2018-09-15] MEDS ORDERED: HEPARIN SOD,PORK IN 0.45% NACL 25,000 UNIT in 0.45% NACL 1 500ML.BAG IV SCH (15:15)
[2018-09-15 15:30] LABS: Basophils % (A) 0 %; Eosinophils # (A) 0.4 k/uL (0-0.7); Eosinophils % (A) 7 %; HCT 41.7 % (39.0-53.0); HGB 14.3 gm/dL (13.0-17.5); Lymphocytes # (A) 1.8 k/uL (1.0-4.8); Lymphocytes % (A) 28 %; MCH 31.7 pg (25.0-35.0); MCHC 34.4 g/dL (31.0-37.0); MCV 92.2 fL (80.0-100.0); Mean Platelet Volume 6.6; Monocytes # (A) 0.6 k/uL (0-1.0); Monocytes % (A) 10 %; Neutrophils # (A) 3.4 k/uL (1.3-7.7); Neutrophils % (A) 53 %; Platelet Count 221 k/uL (150-450); RBC 4.53 m/uL (4.30-5.90); RDW 12.9 % (11.5-15.5); WBC 6.4 k/uL (3.8-10.6)
[2018-09-15 15:46] LABS: Partial Thromboplastin Time 23.3 sec (22.0-30.0); Prothrombin Time 9.7 sec (9.0-12.0)
[2018-09-15 15:48] LABS: Creatine Kinase 56 U/L (55-170)
--- NOTE | 2018-09-15 15:52 | XR ---
EXAMINATION TYPE: XR chest 2V DATE OF EXAM: 09/15/2018 COMPARISON: 08/27/2018 INDICATION: Chest pain, chest pressure TECHNIQUE: Frontal and lateral views of the chest are obtained. FINDINGS: The heart size is normal. The pulmonary vasculature is normal. The lungs are clear. IMPRESSION: 1. No acute pulmonary process.
[2018-09-15 16:02] LABS: Creatine Kinase MB 0.6 ng/mL (0.0-2.4); Troponin I <0.012 ng/mL (0.000-0.034)
[2018-09-15 16:11] LABS: ALT 35 U/L (21-72); AST 24 U/L (17-59); Albumin 3.8 g/dL (3.5-5.0); Alkaline Phosphatase 75 U/L (38-126); Anion Gap 9 mmol/L; Blood Urea Nitrogen 15 mg/dL (9-20); Calcium 9.4 mg/dL (8.4-10.2); Carbon Dioxide 24 mmol/L (22-30); Chloride 105 mmol/L (98-107); Glucose 110 mg/dL (74-99); Magnesium 2.1 mg/dL (1.6-2.3); Potassium 4.6 mmol/L (3.5-5.1); Sodium 138 mmol/L (137-145); Total Bilirubin 0.4 mg/dL (0.2-1.3); Total Protein 6.8 g/dL (6.3-8.2)
[2018-09-15] MEDS ORDERED: NITROGLYCERIN SL TABS 0.4 MG TAB SUBLINGUAL PRN ×2 (16:13→18:28)
[2018-09-15 17:32] VITALS: BMI 25.0
[2018-09-15] MEDS: NITROGLYCERIN OINT 1 INCH/GM PACKET TOPICAL SCH (17:41)
[2018-09-15] MEDS: METOPROLOL TARTRATE 12.5 MG TAB PO SCH (19:37)
[2018-09-15] MEDS: traMADol 50 MG TAB PO PRN (19:41)
[2018-09-15] MEDS ORDERED: ATORVASTATIN 40 MG TAB PO SCH (21:00)
[2018-09-15 21:24] LABS: Creatine Kinase 46 U/L (55-170)
[2018-09-15 21:36] LABS: Creatine Kinase MB 0.5 ng/mL (0.0-2.4); Troponin I <0.012 ng/mL (0.000-0.034)
[2018-09-15 22:15] LABS: Cholesterol 166 mg/dL (<200); HDL Cholesterol 32 mg/dL (40-60); LDL Cholesterol,Calculated 94 mg/dL (0-99); Triglycerides 199 mg/dL (<150)
[2018-09-16] MEDS: NITROGLYCERIN OINT 1 INCH/GM PACKET TOPICAL SCH ×2 (01:06→06:04)
[2018-09-16 04:00] LABS: Creatine Kinase 43 U/L (55-170)
[2018-09-16 04:13] LABS: Creatine Kinase MB 0.4 ng/mL (0.0-2.4); Troponin I <0.012 ng/mL (0.000-0.034)
[2018-09-16] MEDS ORDERED: ALPRAZolam 0.5 MG TAB PO PRN (07:51)
[2018-09-16] MEDS ORDERED: SODIUM CHLORIDE 0.9% 1,000 ML in EMPTY BAG 1 BAG IV ONE (07:51)
[2018-09-16] MEDS ORDERED: ALPRAZolam 0.25 MG TAB PO PRN (07:51)
[2018-09-16] MEDS ORDERED: NITROGLYCERIN SL TABS 0.4 MG TAB SUBLINGUAL PRN (07:51)
[2018-09-16] MEDS ORDERED: ASPIRIN 325 MG TAB PO STA (07:51)
[2018-09-16] MEDS ORDERED: ATORVASTATIN 80 MG TAB PO STA (07:51)
[2018-09-16] MEDS: ASPIRIN 81 MG PO SCH (08:13)
[2018-09-16] MEDS: METOPROLOL TARTRATE 12.5 MG TAB PO SCH ×2 (08:13→20:54)
[2018-09-16] MEDS: LOSARTAN 25 MG TAB PO SCH (08:13)
--- NOTE | 2018-09-16 08:48 | CONS ---
CONSULTATION Mr. Varner is a 53-year-old male with a known history of coronary artery disease, prior history of smoking, history of hyperlipidemia, who presented with symptoms of chest discomfort. The patient follows on a regular basis with Dr. Swanson and presented in July of this year with an acute myocardial infarction involving the right coronary artery territory. At that time underwent percutaneous revascularization of the right coronary artery by Dr. Cecelia Bhandari and received a 3.25 x 15 mm stent. Subsequently to that he was known to have an obstructive disease involving the first obtuse marginal branch in the proximal left circumflex and was readmitted to the hospital in August with recurrent chest pain and underwent repeat angiography and stenting of the proximal left circumflex and received a 2.5 x 8 mm Xience stent. According to him, he has been complaining of chest discomfort since the procedure on and off. Yesterday, he had more discomfort radiating to the left shoulder and to the jaw, improved with nitroglycerin. He has used nitroglycerin at home on more than one occasion and because of that he came into the emergency room. The patient has dyspnea on exertion, has occasional palpitation and dizziness. No syncope. No PND or orthopnea. No peripheral edema. His coronary risk factors are remarkable for smoking. He has almost stopped completely, but he has smoked at times. He has a history of hyperlipidemia. He is nondiabetic. His medication include aspirin, Lipitor 40 mg daily, Cozaar 12.5 mg daily, metoprolol tartrate 12.5 mg twice a day, tramadol on a p.r.n. basis and he is supposed to be on Brilinta 90 mg twice a day. PHYSICAL EXAMINATION: Blood pressure running in the low 100s, high 90s. HEAD: Normocephalic. EYES: Sclerae anicteric. NECK: Good upstroke. No bruit. No jugular venous distention. LUNGS: Clear to auscultation. HEART: Regular rate and rhythm. S1, S2. No S3. No S4. No murmur or rub. ABDOMEN: Soft, nontender. Positive bowel sounds. No organomegaly. EXTREMITIES: No edema. Intact distal pulses. LAB DATA: Labs data revealed hemoglobin of 14.3. Troponin less than 0.012 for 3 samples. BUN and creatinine 15 and 1.0, potassium 4.6. Cholesterol 166, LDL of 94. IMPRESSION: 1. Symptoms of chest discomfort of unclear etiology. No evidence of acute myocardial infarction. The likelihood of acute stent thrombosis is very low in view of the absence of enzymatic changes. 2. History of tobacco use. 3. Hyperlipidemia. RECOMMENDATION: In view of his persistent symptoms, I have recommended to proceed with coronary angiography to be performed by Dr. Swanson. I have discussed with the patient the finding as well as the risks and the complications. He is in full understanding and agreement. Thank you for this consult. We will follow with you. [email or web address] / IJN: [id number] /
[2018-09-16] MEDS ORDERED: TICAGRELOR 90 MG TAB PO SCH (09:00)
[2018-09-16] MEDS ORDERED: ASPIRIN 325 MG TAB PO SCH (09:00)
[2018-09-16] MEDS ORDERED: LIDOCAINE 1% INJ 10MG/ML (20 ML MDV) ONE (09:40)
[2018-09-16] MEDS ORDERED: MIDAZOLAM 2 MG/2 ML VIAL ONE (09:40)
[2018-09-16] MEDS ORDERED: fentaNYL (PF) 50 MCG/ML 2 ML AMP ONE (09:41)
--- NOTE | 2018-09-16 09:50 | P.HPIM ---
History of Present Illness H&P Date: 09/16/18 Chief Complaint: Unstable angina This is a 53-year-old male patient of Dr. Wong. Patient presented emergency room with complaints of chest pain that radiated to jaw and shoulder. In July patient presented with an acute myocardial infarction involving the right RCA. At that time patient underwent stent placement. Patient also returned for further stent placement in August to the proximal left circumflex. Patient states he's been having on-and-off chest pain since stent placement in August. Patient states that yesterday the discomfort became increasingly worse and radiating to the left shoulder and jaw. Patient states he has been taking his Proventil but stopped on Sunday due to running out and not being to for the refill. Patient is known past medical history of chest pain, hyperlipidemia, myocardial infarction. Patient also has a history of abdominal aorta oriented to repair and [facility] in 2015. Chest x-ray completed showing no acute pulmonary process. EKG completed showing normal sinus rhythm. Troponins have been negative. Patient started on heparin drip. Per cardiology services recommended to proceed with coronary angiogram today with Dr. Swanson. At this time patient denies chest pain or shortness breath. Patient denies nausea vomiting or diarrhea. Patient denies any urinary burning or frequency Review of Systems please refer to HPI otherwise unremarkable Past Medical History Past Medical History: Chest Pain / Angina, Hyperlipidemia, Myocardial Infarction ([place]) Additional Past Medical History / Comment(s): ABDOMINAL AORTIC ANEURYSM repair done at [facility] 2016, BACK PAIN. Last Myocardial Infarction Date:: 08/06/18 History of Any Multi-Drug Resistant Organisms: None Reported Past Surgical History: Back Surgery, Heart Catheterization With Stent, Hernia Repair, Tonsillectomy Additional Past Surgical History / Comment(s): INGUINAL HERNIA X2, STATES ABDOMINAL HERNIA SURGERY X2- (VENTRAL HERNIA 06/18/18)., Past Anesthesia/Blood Transfusion Reactions: No Reported Reaction Date of Last Stent Placement:: 2017 Past Psychological History: Depression Additional Psychological History / Comment(s): STATES NO PROBLEM WITH DEPRESSION NOW. Smoking Status: Former smoker Past Alcohol Use History: Occasional Additional Past Alcohol Use History / Comment(s): SMOKES 1 PPD, SMOKING FOR 38 YEARS. Past Drug Use History: None Reported - Past Family History Mother Family Medical History: No Reported History Father Family Medical History: Unable to Obtain Medications and Allergies Home Medications Medication Instructions Recorded Confirmed Type traMADol HCL [Ultram] 50 mg PO TID PRN 09/18/16 09/15/18 History Aspirin EC [Ecotrin Low Dose] 81 mg PO DAILY 08/06/18 09/15/18 History Atorvastatin [Lipitor] 40 mg PO HS #30 tab 08/09/18 09/15/18 Rx Losartan [Cozaar] 12.5 mg PO DAILY #30 tab 08/09/18 09/15/18 Rx Metoprolol Tartrate [Lopressor] 12.5 mg PO BID #60 tab 08/09/18 09/15/18 Rx Nitroglycerin Sl Tabs [Nitrostat] 0.4 mg SUBLINGUAL Q5M PRN #25 tab 08/30/1802/27 Rx Allergies Allergy/AdvReac Type Severity Reaction Status Date / Time bee venom protein (honey bee) Allergy Swelling Verified 09/15/18 16:46 Penicillins Allergy Itching Verified 09/15/18 16:46 Physical Exam Vitals: Vital Signs Temp Pulse Pulse Resp BP BP Pulse Ox 09/16/18 08:05 97.7 F 62 16 105/69 96 09/16/18 03:33 75 16 09/16/18 03:29 98.0 F 75 16 93/58 95 09/15/18 23:49 61 16 09/15/18 23:48 97.6 F 61 16 95/59 97 09/15/18 20:00 66 18 09/15/18 19:46 97.7 F 66 18 116/73 97 09/15/18 17:10 97.9 F 58 L 16 109/73 100 09/15/18 16:00 64 15 104/73 96 09/15/18 15:38 68 18 104/73 97 09/15/18 14:32 97.5 F L 76 18 105/67 97 Intake and Output 09/15/18 09/16/18 09/16/18 22:59 06:59 14:59 Intake Total 114.333 470.417 147.472 Balance 114.333 470.417 147.472 Intake: Intake, IV Titration 114.333 170.417 147.472 Amount Heparin Sod,Pork in 0.45% 114.333 170.417 147.472 NaCl 25,000 unit In 0.45 % NaCl 1 500ml.bag @ 11. 917 UNITS/KG/HR 20 mls/hr IV .Q24H [facility] Rx#: [id number] Oral 300 0 Other: Voiding Method Urinal Urinal Weight 83.915 kg 86.8 kg Head normocephalic Neck supple Lungs clear to auscultation bilaterally no wheezing or crackles Heart regular rate and rhythm S1-S2, no rub or gallop Abdomen is soft nontender nondistended positive bowel sounds no hepatosplenomegaly Extremities no edema Neuro alert and orientated to 3 Results CBC & Chem 7: 09/15/18 15:20 09/15/18 15:20 Labs: Abnormal Lab Results - Last 24 Hours (Table) 09/15/18 09/15/18 09/15/18 Range/Units 15:20 15:20 20:49 APTT (22.0-30.0) sec Glucose 110 H (74-99) mg/dL Total Creatine Kinase 46 L (55-170) U/L Triglycerides 199 H (<150) mg/dL HDL Cholesterol 32 L (40-60) mg/dL 09/15/18 09/16/18 09/16/18 Range/Units 20:49 03:23 03:23 APTT 37.7 H 42.9 H (22.0-30.0) sec Glucose (74-99) mg/dL Total Creatine Kinase 43 L (55-170) U/L Triglycerides (<150) mg/dL HDL Cholesterol (40-60) mg/dL Thrombosis Risk Factor Assmnt - Choose All That Apply Each Factor Represents 1 point: Age 41-60 years Thrombosis Risk Factor Assessment Total Risk Factor Score: 1 Thrombosis Risk Factor Assessment Level: Low Risk Assessment and Plan Assessment: 1. Chest pain. Chest x-ray completed showing no acute process. Troponins have been negative. EKG showing showing normal sinus rhythm. She has history of recent stent placement to the RCA and proximal left circumflex within the past 2 months. Patient has been on [place] to but states he ran out on Sunday and was unable to refill it. Per cardiology services planning heart catheterization today. Patient currently on heparin drip. 2. History of myocardial infection with stent placement. Patient currently on Brillenta 3. History of abdominal aortic aneurysm repair [facility] 2015. Chest abdomen CT completed on August 2018 outpatient per PCP showing patient aorticbiliriac stent graft new from prior study. No suspicious acute findings seen to account for patient's symptoms. 4. History of depression 5. History of hyperlipidemia. Patient maintained on Lipitor Time with Patient: Greater than 30 (Greater than 60% of the total time spent in counseling and coordination of care. I performed an examination of the patient and discussed their management with the Nurse Practitioner. I have reviewed the Nurse Practitioner's notes and agree with the documented findings and plan of care)
[2018-09-16] MEDS ORDERED: IV FLUID CONTINUATION 1,000 ML IV ONE (09:56)
[2018-09-16] MEDS ORDERED: fentaNYL (PF) 50 MCG/ML 2 ML AMP IV ONE (10:04)
[2018-09-16] MEDS ORDERED: MIDAZOLAM 2 MG/2 ML VIAL IV ONE (10:04)
[2018-09-16] MEDS ORDERED: LIDOCAINE 1% INJ 10MG/ML (20 ML MDV) SQ ONE (10:06)
[2018-09-16] MEDS ORDERED: IOPAMIDOL-370 125ML BTL INJ ONE (10:21)
[2018-09-16] MEDS ORDERED: RX INFO: IV CONTRAST WAS GIVEN 1 EACH MISC MISCELLANE PRN (10:31)
--- NOTE | 2018-09-16 11:15 | CC ---
CARDIAC CATHETERIZATION REPORT INDICATION: Unstable angina. Patient has known coronary artery disease and had angioplasty of right coronary artery in the setting of a myocardial infarction. Subsequently had a complex angioplasty of the circumflex and OM branch 2 to 3 weeks ago. Comes in complaining of chest pain and ruled out for myocardial infarction. Dr. Dhillon who evaluated him on the floor advised him to undergo cardiac catheterization. The patient understood risks, benefits and alternatives. PROCEDURE NOTE: After obtaining informed consent, left heart catheterization and coronary angiogram were performed via the left femoral artery using standard Darrell catheters. The patient tolerated the procedure well without any obvious immediate complications. FINDINGS: 1. HEMODYNAMICS: Left ventricular end-diastolic pressure is 8 to 12 mm. There is no significant gradient across the aortic valve. 2. LEFT VENTRICULOGRAM: Left ventriculogram is not performed. 3. ANGIOGRAPHIC DATA: Left Main Coronary Artery: Left main coronary artery is a normal-sized vessel and is free of stenosis. Divides into left anterior descending coronary artery and circumflex coronary artery. LAD shows an aneurysmal and ectatic area in the proximal part which has remained unchanged from the prior cardiac catheterization. Proximal circumflex coronary artery that has recently been stented appears patent. Right coronary artery is a large dominant vessel where the stent is patent. Proximal to the stent, there is an aneurysmal area which again has remained unchanged from the previous cardiac catheterization. CONCLUSION: Aneurysmal and ectatic areas within the proximal left anterior descending artery, proximal right coronary artery with patent stents both in the right coronary artery and circumflex coronary artery. The angiographic data looks the same as it did at the end of the recent angioplasty. I am going to have Dr. Cecelia Bhandari the on-call master at [facility] review the angiograms. We will treat the patient with optimal medical therapy with aspirin, Plavix, nitrates, statins and beta blockers. The patient cannot afford Brilinta. He is going to get an evening dose here. From tomorrow morning, patient is going to be on Plavix. Please make sure that the patient has a script for Plavix before he leaves the hospital. MMODL / IJN: [id number] /
[2018-09-16] MEDS: traMADol 50 MG TAB PO PRN (11:45)
[2018-09-16] MEDS: SODIUM CHLORIDE 0.9% 1,000 ML IV SCH (11:45)
[2018-09-16 11:58] LABS: Basophils % (A) 1 %; Eosinophils # (A) 0.4 k/uL (0-0.7); Eosinophils % (A) 4 %; HCT 42.2 % (39.0-53.0); HGB 13.9 gm/dL (13.0-17.5); Lymphocytes # (A) 1.6 k/uL (1.0-4.8); Lymphocytes % (A) 18 %; MCH 30.6 pg (25.0-35.0); MCV 92.8 fL (80.0-100.0); Mean Platelet Volume 6.7; Monocytes # (A) 0.7 k/uL (0-1.0); Monocytes % (A) 7 %; Neutrophils # (A) 6.2 k/uL (1.3-7.7); Neutrophils % (A) 68 %; Platelet Count 204 k/uL (150-450); RBC 4.55 m/uL (4.30-5.90); RDW 12.8 % (11.5-15.5); WBC 9.1 k/uL (3.8-10.6)
[2018-09-16 12:07] LABS: ALT 40 U/L (21-72); AST 24 U/L (17-59); Albumin 3.7 g/dL (3.5-5.0); Alkaline Phosphatase 95 U/L (38-126); Anion Gap 6 mmol/L; Blood Urea Nitrogen 14 mg/dL (9-20); Calcium 9.4 mg/dL (8.4-10.2); Carbon Dioxide 26 mmol/L (22-30); Chloride 106 mmol/L (98-107); Glucose 96 mg/dL (74-99); Potassium 4.8 mmol/L (3.5-5.1); Sodium 138 mmol/L (137-145); Total Bilirubin 0.6 mg/dL (0.2-1.3); Total Protein 6.6 g/dL (6.3-8.2)
[2018-09-16] MEDS ORDERED: VERAPAMIL 2.5 MG/ML 2 ML AMP ONE (17:18)
[2018-09-16] MEDS ORDERED: HEPARIN SODIUM 1,000 UN/ML (10ML VL) ONE (17:19)
[2018-09-16] MEDS ORDERED: ATORVASTATIN 80 MG TAB PO SCH (23:00)
[2018-09-17] MEDS: SODIUM CHLORIDE 0.9% 1,000 ML IV SCH (03:37)
[2018-09-17] MEDS ORDERED: PANTOPRAZOLE 40 MG TABLET PO SCH (07:30)
[2018-09-17 07:49] VITALS: RESP 16; TEMP 97.7
[2018-09-17] MEDS: ASPIRIN 81 MG PO SCH (07:50)
[2018-09-17] MEDS: LOSARTAN 25 MG TAB PO SCH (07:50)
[2018-09-17] MEDS: METOPROLOL TARTRATE 12.5 MG TAB PO SCH (07:50)
--- NOTE | 2018-09-17 08:35 | PN ---
PROGRESS NOTE Mr. Varner is a 53-year-old male with a history of coronary artery disease, status post percutaneous revascularization who presented with symptoms of chest discomfort, underwent repeat cardiac catheterization by Dr. Swanson and was found to have no significant obstructive disease. He is doing well this morning. His breathing has been stable. He denies any dizziness, palpitation. He continues once aspirin once a day Lipitor 80 mg daily, Plavix 75 mg daily, isosorbide mononitrate 30 mg daily, losartan 12 0.5 mg daily metoprolol tartrate 12.5 mg twice a day. PHYSICAL EXAMINATION: Blood pressure 120/60 with a heart in the 60s. LUNGS: Clear good rhythm S1, S2. No S3. No rub. ABDOMEN: Soft nontender. EXTREMITIES: No edema right groin no hematoma. LAB DATA: BUN and creatinine 14 and 1.03, potassium 4.8l hemoglobin is 13.9. IMPRESSION: 1. Symptoms of chest discomfort with no evidence of obstructive or for progression of disease and prior stenting. 2. History cough prior myocardial infarction. 3. Atypical chest pain. RECOMMENDATION: From the cardiac standpoint, he should be able to be discharged home today and followed as an outpatient with Dr. Swanson in 1 week. MMODL / IJN: [id number] /
[2018-09-17] MEDS ORDERED: CLOPIDOGREL 75 MG TAB PO SCH (09:00)
[2018-09-17] MEDS ORDERED: ISOSORBIDE MONONITRATE ER 30 MG TAB.ER.24H PO SCH (09:00)
[2018-09-17] MEDS: traMADol 50 MG TAB PO PRN (09:18)
[2018-09-17 12:27] VITALS: BP 95/61; PULSE 56
--- NOTE | 2018-09-17 12:38 | P.DS ---
Providers Date of admission: 09/16/18 19:16 Expected date of discharge: 09/17/18 Attending physician: Anjel Jeffers Consults: 09/15/18 16:13 Consult Physician Urgent Consulting Provider: [facility] Consult Reason/Comments: Unstable angina Do you want consulting provider notified?: Yes Primary care physician: Felisa Wong [facility] Course: Discharge diagnosis 1. Chest pain. Chest x-ray completed showing no acute process. Troponins have been negative. EKG showing showing normal sinus rhythm. She has history of recent stent placement to the RCA and proximal left circumflex within the past 2 months. Patient has been on [place] to but states he ran out on Sunday and was unable to refill it. Patient underwent heart catheterization yesterday showing aneurysmal and ectatic areas within the proximal left anterior descending artery, proximal right coronary artery with patent stents both in the RCA and circumflex coronary artery. No intervention performed. 2. History of myocardial infection with stent placement. Patient has been started on Plavix. Per cardiology services patient will be discharged on Plavix due to not being able to afford Brilinta 3. History of abdominal aortic aneurysm repair [facility] 2015. Chest abdomen CT completed on August 2018 outpatient per PCP showing patient aorticbiliriac stent graft new from prior study. No suspicious acute findings seen to account for patient's symptoms. 4. History of depression 5. History of hyperlipidemia. Patient maintained on Lipitor Hospital course This is a 53-year-old male patient of Dr. Wong. Patient presented emergency room with complaints of chest pain that radiated to jaw and shoulder. In July patient presented with an acute myocardial infarction involving the right RCA. At that time patient underwent stent placement. Patient also returned for further stent placement in August to the proximal left circumflex. Patient states he's been having on-and-off chest pain since stent placement in August. Patient states that yesterday the discomfort became increasingly worse and radiating to the left shoulder and jaw. Patient states he has been taking his Proventil but stopped on Sunday due to running out and not being to for the refill. Patient is known past medical history of chest pain, hyperlipidemia, myocardial infarction. Patient also has a history of abdominal aorta oriented to repair and [facility] in 2015. Chest x-ray completed showing no acute pulmonary process. EKG completed showing normal sinus rhythm. Troponins have been negative. Patient started on heparin drip. Per cardiology services recommended to proceed with coronary angiogram today with Dr. Swanson. At this time patient denies chest pain or shortness breath. Patient denies nausea vomiting or diarrhea. Patient denies any urinary burning or frequency On 09/17/2018 patient states chest pain has improved. Patient discusses that he is eager to go home. Patient also states he had eye pressure prior to hospitalization. But had no symptoms at this time. Advised patient to pop follow-up with eye doctor post discharge. Patient also advised followed closely with PCP and cardiology services. Patient to have prescription for Plavix per cardiology services. I performed an examination of the patient and discussed their management with the Nurse Practitioner. I have reviewed the Nurse Practitioner's notes and agree with the documented findings and plan of care Patient Condition at Discharge: Stable Plan - Discharge Summary Discharge Rx Participant: Yes New Discharge Prescriptions: No Action traMADol HCL [Ultram] 50 mg PO TID PRN PRN Reason: Pain Aspirin EC [Ecotrin Low Dose] 81 mg PO DAILY Atorvastatin [Lipitor] 40 mg PO HS #30 tab Losartan [Cozaar] 12.5 mg PO DAILY #30 tab Metoprolol Tartrate [Lopressor] 12.5 mg PO BID #60 tab Nitroglycerin Sl Tabs [Nitrostat] 0.4 mg SUBLINGUAL Q5M PRN #25 tab PRN Reason: Chest Pain Discharge Medication List traMADol HCL [Ultram] 50 mg PO TID PRN 09/18/16 [History] Aspirin EC [Ecotrin Low Dose] 81 mg PO DAILY 08/06/18 [History] Atorvastatin [Lipitor] 40 mg PO HS #30 tab 08/09/18 [Rx] Losartan [Cozaar] 12.5 mg PO DAILY #30 tab 08/09/18 [Rx] Metoprolol Tartrate [Lopressor] 12.5 mg PO BID #60 tab 08/09/18 [Rx] Nitroglycerin Sl Tabs [Nitrostat] 0.4 mg SUBLINGUAL Q5M PRN #25 tab 08/30/18 [Rx ] Follow up Appointment(s)/Referral(s): Felisa Wong DO [Primary Care Provider] - 09/23/18 10:15 am (Sunday) Sacha Swanson MD [STAFF PHYSICIAN] - 09/24/18 2:00 pm (Sunday) Patient Instructions/Handouts: *Surgery [facility] - After Heart Catheterization - Distilling Department Supervisor Instructions, Left Heart Catheterization (DC)
== END 2018-09-17 14:52 | disposition home or self-care (01) | DRG 287 ==
LOC: EC 14:27 → 3SCARD 16:14 → OBSVTOIN 09-16 19:16
PROVIDERS: ADMIT Internal Medicine; ATTEND Internal Medicine
PROC: B2111ZZ Fluoroscopy of Multiple Coronary Arteries using Low Osmolar Contrast (ICD-10-PCS; 2018-09-16)
PROC: B2151ZZ Fluoroscopy of Left Heart using Low Osmolar Contrast (ICD-10-PCS; 2018-09-16)
PROC: 4A023N7 Measurement of Cardiac Sampling and Pressure, Left Heart, Percutaneous Approach (ICD-10-PCS; principal; 2018-09-16 09:40)
DX: I25.110 Atherosclerotic heart disease of native coronary artery with unstable angina pectoris (principal); E78.5 Hyperlipidemia, unspecified; F32.9 Major depressive disorder, single episode, unspecified; F17.210 Nicotine dependence, cigarettes, uncomplicated; Z95.5 Presence of coronary angioplasty implant and graft; Z79.82 Long term (current) use of aspirin; Z79.899 Other long term (current) drug therapy; Z88.0 Allergy status to penicillin; Z91.030 Bee allergy status; Z98.890 Other specified postprocedural states; Z79.02 Long term (current) use of antithrombotics/antiplatelets; I25.2 Old myocardial infarction; Z86.79 Personal history of other diseases of the circulatory system
CPT/HCPCS: 36415; 71046; 80053; 80061; 82550; 82553; 83735; 84484; 85025; 85610; 85730; 93005; 93458; 96365; 96376; 99291

== ENCOUNTER → 2019-11-28 | Outpatient (CLI) | payer MEDICARE ==
--- NOTE | 2019-11-28 17:23 | CTL ---
EXAMINATION TYPE: CT Low Dose Lung DATE OF EXAM ORDERED: 11/28/2019 HISTORY: . Lung cancer screening CT DLP: 114.[address] CTDI: 3.3 mGy Automated exposure control for dose reduction was used. SCREENING VISIT: Initial COMPARISON: none TECHNIQUE: Low dose computed tomography scan was performed through the chest at 1 mm thick sections a nd reconstructed images in the coronal plane at [address] DIAGNOSTIC QUALITY: Satisfactory FINDINGS: LUNG NODULES: None. LUNGS: COPD: Severity: Mild Fibrosis: Severity: None Lymph nodes: No enlarged lymph nodes Other findings: None RIGHT PLEURAL SPACE: Effusion: None Calcification: None Thickening: None Pneumothorax: None LEFT PLEURAL SPACE: Effusion: None Calcification: None Thickening: None Pneumothorax: None HEART: Heart Size: Normal Coronary calcification: Mild Pericardial effusion: None OTHER FINDINGS: Upper abdomen: Normal Bony thorax: Normal Supraclavicular region: Normal Other: Ascending thoracic aorta at the level the main pulmonary artery measures 3.7 cm. The main pul monary artery at the bifurcation measures 2.8 cm. IMPRESSION: Negative CT chest FOLLOW UP CT CHEST RECOMMENDATION: Follow-up low dose screening CT chest [address] LUNG RAD: Lung rad 1
--- NOTE | 2019-11-28 17:30 | CT ---
EXAMINATION TYPE: CT angio abdomen pelvis DATE OF EXAM: 11/28/2019 COMPARISON: CT chest and abdomen 08/23/2018 INDICATION: Abdominal aortic aneurysm with repair. DLP: 1249.2 mGycm, Automated exposure control for dose reduction was used. CONTRAST: 100 mL of Isovue 370. Study performed without Oral Contrast TECHNIQUE: CTA of the abdomen and pelvis is performed following contrast. 3-D reconstructed images pe rformed separately by the technologist on a separate computer are reviewed. FINDINGS: Limited CT sections are obtained the lung bases. The lung bases are clear. CT ABDOMEN: Liver: Normal Spleen: Normal Pancreas: Normal Adrenal glands: The adrenal glands are normal. Gallbladder: Normal Kidneys: No masses are evident. No hydronephrosis is present. No cysts are present. Delayed images were obtained through the kidneys, which remain unremarkable. Aorta: Vascular calcification is within the aorta. There is an abdominal aortic aneurysm with stent placement extending into the common iliac vessels. Following contrast administration no endovascular leak is evident. The common iliac vessels are paten t to the bifurcation of the internal and extra iliac vessels which remain patent. Contrast extends to the common femoral arteries and the profunda femoris and superficial femoral arteries proximally. Inferior vena cava: Normal. CT PELVIS: Loops of bowel within the abdomen and pelvis are normal. Study is performed without oral contrast limiting bowel evaluation. Appendix: Not identified. No suspicious tubular structures or inflammatory changes evident. Urinary bladder: Normal. Genitourinary structures: Prostate is normal Osseous structures: No suspicious lytic or sclerotic lesions. IMPRESSIONS: 1. No endovascular leak with aortic stent through a prior abdominal aortic aneurysm.
== END | disposition home or self-care (01) ==
LOC: RADCTMAIN 11:09
PROVIDERS: ATTEND Family Medicine
DX: I71.4 Abdominal aortic aneurysm, without rupture (principal); Z87.891 Personal history of nicotine dependence
CPT/HCPCS: 74174; G0297; Q9967

== ENCOUNTER 2020-04-01 07:29 | Observation (INO) | payer MEDICARE ==
[2020-03-31 11:06] VITALS: BMI 25.9
[~2020-04-01 07:29] MED LIST changes: +HEPARIN SODIUM,PORCINE 5,000 UNIT/ML 1 ML VIAL SQ ONE; -HYDROmorphone 0.5 MG/0.5 ML SYRINGE IVP PRN; -LACTATED RINGERS 1,000 ML IV SCH; -LIDOCAINE 1% 20 ML VIAL (10MG/ML) FOR IV START INTRADERMA PRN
[2020-04-01] MEDS ORDERED: LIDOCAINE 1% (10MG/ML) FOR IV START INTRADERMA ONE (08:02)
[2020-04-01] MEDS ORDERED: DEXAMETHASONE SOD PHOSPHATE 10 MG/ML 1 ML VIAL IV ONE (08:10)
[2020-04-01] MEDS ORDERED: LACTATED RINGERS 1,000 ML IV ONE ×3 (08:10→10:01)
[2020-04-01] MEDS ORDERED: ONDANSETRON 4 MG/2 ML VIAL IVP ONE (08:10)
--- NOTE | 2020-04-01 08:36 | P.GSHP ---
History of Present Illness H&P Date: 04/01/20 Chief Complaint: Cholecystitis, cholelithiasis This a 54-year-old male is a complaints of right upper quadrant pain. Patient's workup found have evidence of cholelithiasis and cholecystitis. Past Medical History Past Medical History: Coronary Artery Disease (CAD), Chest Pain / Angina, Hyperlipidemia, Myocardial Infarction ([place]), Musculoskeletal Disorder, Sleep Apnea/CPAP/BIPAP Additional Past Medical History / Comment(s): Hx ABDOMINAL AORTIC ANEURYSM repair done at [facility] 2016, Chronic Back Pain. No CPAP used. Pos gallstones. Last Myocardial Infarction Date:: 08/06/18 History of Any Multi-Drug Resistant Organisms: None Reported Past Surgical History: Back Surgery, Heart Catheterization With Stent, Hernia Repair, Tonsillectomy Additional Past Surgical History / Comment(s): INGUINAL HERNIA X2, ABD HERNIA SURGERY X2 (VENTRAL HERNIA 06/18/18). AAA repair. Colonoscopy Past Anesthesia/Blood Transfusion Reactions: No Reported Reaction Date of Last Stent Placement:: 2017 Smoking Status: Current every day smoker - Past Family History Mother Family Medical History: Pulmonary Embolus Father Family Medical History: Unable to Obtain Medications and Allergies Home Medications Medication Instructions Recorded Confirmed Type traMADol HCL [Ultram] 50 mg PO BID PRN 09/18/16 04/01/20 History Aspirin EC [Ecotrin Low Dose] 81 mg PO DAILY 08/06/18 04/01/20 History Losartan [Cozaar] 12.5 mg PO DAILY #30 tab 08/09/18 04/01/20 Rx Nitroglycerin Sl Tabs [Nitrostat] 0.4 mg SUBLINGUAL Q5M PRN #25 tab 08/30/18 04/01/20 Rx Atorvastatin [Lipitor] 80 mg PO HS #90 tab 09/17/18 04/01/20 Rx Clopidogrel [Plavix] 75 mg PO DAILY #90 tab 09/17/18 04/01/20 Rx Isosorbide Mononitrate ER [Imdur] 10 mg PO BID 03/31/20 04/01/20 History Metoprolol Tartrate [Lopressor] 25 mg PO BID 03/31/20 04/01/20 History Allergies Allergy/AdvReac Type Severity Reaction Status Date / Time bee venom protein (honey bee) Allergy Swelling Verified 04/01/20 07:52 Penicillins Allergy Itching Verified 04/01/20 07:52 Surgical - Exam Vital Signs Temp Pulse Resp BP Pulse Ox 97.1 F L 66 18 107/63 96 04/01/20 07:50 04/01/20 07:50 04/01/20 07:50 04/01/20 07:50 04/01/20 07:50 - General well developed, well nourished, no distress - Eyes PERRL - ENT normal pinna - Neck no masses - Respiratory normal expansion - Cardiovascular Rhythm: regular - Abdomen Abdomen: soft, non tender Assessment and Plan Assessment: Cholecystitis, cholelithiasis. We'll perform laparoscopic cholecystectomy.
[2020-04-01] MEDS ORDERED: BUPIVACAIN-EPI 0.25%-1:200,000 30 ML VIAL SQ ONE ×2 (08:40→09:10)
[2020-04-01] MEDS ORDERED: LIDOCAINE 1% INJ 10MG/ML (20 ML MDV) ONE (08:47)
[2020-04-01] MEDS ORDERED: SUCCINYLCHOLINE CHLORIDE 100 MG/5 ML SYR IV ONE (08:47)
[2020-04-01] MEDS ORDERED: GLYCOPYRROLATE 0.2 MG/ML 2 ML VIAL ONE (08:47)
[2020-04-01] MEDS ORDERED: PROPOFOL 10 MG/ML 20 ML VIAL IV ONE (08:47)
[2020-04-01] MEDS ORDERED: NEOSTIGMINE 1 MG/ML 10 ML VIAL ONE (08:47)
[2020-04-01] MEDS ORDERED: MIDAZOLAM 2 MG/2 ML VIAL ONE (08:47)
[2020-04-01] MEDS ORDERED: fentaNYL (PF) 50 MCG/ML 2 ML AMP ONE (08:47)
[2020-04-01] MEDS ORDERED: ePHEDrine SULFATE/0.9% NACL/PF 50 MG/5 ML SYRINGE IV ONE (08:47)
[2020-04-01] MEDS ORDERED: ROCURONIUM BROMIDE 10 MG/ML 5 ML VIAL IV ONE (08:47)
--- NOTE | 2020-04-01 09:52 | P.OP ---
Date of Procedure: 04/01/20 Preoperative Diagnosis: Cholelithiasis Cholecystitis Postoperative Diagnosis: Cholelithiasis. Cholecystitis Adhesions Procedure(s) Performed: Laparoscopic cholecystectomy Anesthesia: NIKOLE Surgeon: Peng Hurst Estimated Blood Loss (ml): 5 Pathology: other (Gallbladder) Condition: stable Disposition: PACU Description of Procedure: The patient was placed on the operating table. The patient received a general endotracheal tube anesthesia. The patients abdomen was prepped and draped in the usual sterile fashion. The patient had a previous umbilical hernia repair. Using a 5 mm optical trocar in the right lateral position the peritoneal cavity was entered under direct visualization. The abdomen was insufflated. The laparoscope was then placed in the pleural cavity. The patient had significant adhesions along the midline from the umbilicus to the level of the xiphoid. A 5 mm trochars placed in the right upper quadrant and another fibrillar trocar is placed in the right lower quadrant. Using Metzenbaums scissors sharp dissection of adhesions were performed. At the umbilicus there was mesh. The small bowel was adherent to the mesh. Using meticulous dissection the small bowel was dissected off the mesh. There is no evidence of any injury to the small bowel. The adhesions along the midline were also lysed. At this point a 5 mm trochars placed at the umbilicus. Another 8 mm trochars placed in the epigastric position. Approximately 20 minutes of operative time used to lyse adhesions. The laparoscope was then positioned at the umbilicus. The gallbladder was grasped in the fundus and infundibulum. Traction on the gallbladder was placed in the lateral and the cephalad positions. The triangle of Calot was visualized.. The cystic duct was bluntly dissected until the union of the cystic duct and common bile duct was seen. A critical view of safety was achieved. The cystic duct was then divided and sealed with the Harmonic scissors. A PDS Endoloop was then placed throughout the cystic duct stump. The cystic artery divided and sealed with the Harmonic scissors. The gallbladder was then removed from the liver bed using Harmonic scissors. The gallbladder was then extracted through the epigastric port site. Operative field was checked for any bleeding spots and Harmonic scissors was used to coagulate the liver bed. The abdomen was irrigated. The trocars were removed. The skin was closed using interrupted 3-0 Vicryl suture. Dermabond dressing were applied. The patient tolerated the procedure well.
[2020-04-01] MEDS ORDERED: traMADol 50 MG TAB PO PRN (10:01)
[2020-04-01] MEDS ORDERED: ONDANSETRON 4 MG/2 ML VIAL IVP PRN (10:01)
[2020-04-01] MEDS ORDERED: HYDROmorphone 0.5 MG/0.5 ML SYRINGE IVP PRN (10:01)
[2020-04-01] MEDS ORDERED: NALOXONE 0.4 MG/ML 1 ML VIAL IV PRN (10:01)
[2020-04-01 12:03] VITALS: RESP 18
[2020-04-01] MEDS: HYDROcodone/APAP 5-325MG 1 EACH TAB PO PRN ×3 (13:18→23:23)
[2020-04-01] MEDS ORDERED: NITROGLYCERIN SL TABS 0.4 MG TAB SUBLINGUAL PRN (13:20)
[2020-04-01] MEDS: NICOTINE 14MG/24HR PATCH TRANSDERM SCH (17:17)
[2020-04-01] MEDS: METOPROLOL TARTRATE 25 MG TAB PO SCH (20:06)
[2020-04-02] MEDS: HYDROcodone/APAP 5-325MG 1 EACH TAB PO PRN ×5 (03:13→22:39)
[2020-04-02 06:38] LABS: Basophils % (A) 0 %; Eosinophils # (A) 0.1 k/uL (0-0.7); Eosinophils % (A) 1 %; HCT 43.4 % (39.0-53.0); HGB 14.2 gm/dL (13.0-17.5); Lymphocytes # (A) 1.7 k/uL (1.0-4.8); Lymphocytes % (A) 13 %; MCH 32.4 pg (25.0-35.0); MCHC 32.7 g/dL (31.0-37.0); Mean Platelet Volume 7.8; Monocytes # (A) 0.7 k/uL (0-1.0); Monocytes % (A) 5 %; Neutrophils # (A) 10.6 k/uL (1.3-7.7); Neutrophils % (A) 80 %; Platelet Count 217 k/uL (150-450); RBC 4.39 m/uL (4.30-5.90); RDW 12.2 % (11.5-15.5); WBC 13.2 k/uL (3.8-10.6)
[2020-04-02 06:48] LABS: African American GFR (CKD) >90 (>60 ml/min/1.73 sqM); Anion Gap 4 mmol/L; Blood Urea Nitrogen 9 mg/dL (9-20); Calcium 9.2 mg/dL (8.4-10.2); Carbon Dioxide 27 mmol/L (22-30); Chloride 106 mmol/L (98-107); Glucose 96 mg/dL (74-99); Non-African American GFR(CKD) >90 (>60 ml/min/1.73 sqM); Potassium 4.3 mmol/L (3.5-5.1); Sodium 137 mmol/L (137-145)
[2020-04-02] MEDS: PANTOPRAZOLE 40 MG/10 ML VIAL IVP SCH (08:00)
[2020-04-02] MEDS: NICOTINE 14MG/24HR PATCH TRANSDERM SCH (08:00)
[2020-04-02] MEDS: METOPROLOL TARTRATE 25 MG TAB PO SCH ×2 (08:03→20:43)
[2020-04-02] MEDS: ENOXAPARIN 40 MG/0.4 ML SYRINGE SQ SCH (08:03)
--- NOTE | 2020-04-02 13:06 | P.PN ---
Subjective Progress Note Date: 04/02/20 CHIEF COMPLAINT: Cholecystitis HISTORY OF PRESENT ILLNESS: Patient is status postoperative cholecystectomy with Dr. Hurst. Patient states his pain is tolerable. Tolerating diet. Denies nausea or vomiting. PHYSICAL EXAM: VITAL SIGNS: Reviewed. GENERAL: Well-developed in no acute distress. HEENT: No sclera icterus. Extraocular movements grossly intact. Moist buccal mucosa. Head is atraumatic, normocephalic. ABDOMEN: Soft. Nondistended. Surgical sites clean dry and intact. NEUROLOGIC: Alert and oriented. Cranial nerves II through XII grossly intact. ASSESSMENT: 1. Cholelithiasis and cholecystitis PLAN: -Continue current liquid diet -Anticipate discharge home tomorrow Nurse practitioner note has been reviewed by physician. Signing provider agrees with the documented findings, assessment, and plan of care. Objective - Vital Signs Vital signs: Vital Signs Temp 97.7 F 04/02/20 04:06 Pulse 90 04/02/20 04:06 Resp 18 04/02/20 04:06 BP 133/83 04/02/20 04:06 Pulse Ox 96 04/02/20 04:06 Intake & Output 04/01/20 04/02/20 04/02/20 18:59 06:59 18:59 Intake Total 1100 875 Output Total 260 Balance 840 875 Weight 85 kg Intake: IV 1100 Oral 875 Output: Urine 250 Estimated Blood Loss 10 Other: Voiding Method Urinal Urinal Urinal # Voids 1 2 - Labs CBC & Chem 7: 04/02/20 06:18 04/02/20 06:18 Labs: Abnormal Lab Results - Last 24 Hours (Table) 04/02/20 Range/Units 06:18 WBC 13.2 H (3.8-10.6) k/uL Neutrophils # 10.6 H (1.3-7.7) k/uL
[2020-04-02] MEDS: DOCUSATE 100 MG CAP PO SCH (17:49)
--- NOTE | 2020-04-02 22:43 | P.CONS ---
History of Present Illness - Reason for Consult Consult date: 04/02/20 medical management - Chief Complaint abdominal pain - History of Present Illness Severiano Varner is a 54 yo M with PMH of CAD, HTN who is admitted for cholecystectomy. He is POD#1, reports minimal abdominal pain with rest and really only significant with movement. He is tolerating diet. He denies chest pain, shortness of breath, fever, chills. Labs reviewed and unremarkable. Review of Systems All systems: negative Constitutional: Denies chills, Denies fever Eyes: denies blurred vision, denies pain Ears, nose, mouth and throat: Denies headache, Denies sore throat Cardiovascular: Denies chest pain, Denies shortness of breath Respiratory: Denies cough Gastrointestinal: Reports abdominal pain, Denies diarrhea, Denies nausea, Denies vomiting Musculoskeletal: Denies myalgias Integumentary: Denies pruritus, Denies rash Neurological: Denies numbness, Denies weakness Psychiatric: Denies anxiety, Denies depression Endocrine: Denies fatigue, Denies weight change Past Medical History Past Medical History: Coronary Artery Disease (CAD), Chest Pain / Angina, Hyperlipidemia, Myocardial Infarction ([place]), Musculoskeletal Disorder, Sleep Apnea/CPAP/BIPAP Additional Past Medical History / Comment(s): Hx ABDOMINAL AORTIC ANEURYSM repair done at [facility] 2015, Chronic Back Pain. No CPAP used. Pos gallstones. Last Myocardial Infarction Date:: 08/06/18 History of Any Multi-Drug Resistant Organisms: None Reported Past Surgical History: Back Surgery, Cholecystectomy, Heart Catheterization With Stent, Hernia Repair, Tonsillectomy Additional Past Surgical History / Comment(s): INGUINAL HERNIA X2, ABD HERNIA SURGERY X2 (VENTRAL HERNIA 06/18/18). AAA repair. Colonoscopy. Laporoscopic Cholecystectomy 04/01/20. Past Anesthesia/Blood Transfusion Reactions: No Reported Reaction Date of Last Stent Placement:: 2017 Past Psychological History: Depression Additional Psychological History / Comment(s): Denies currsnt depression Smoking Status: Current every day smoker Past Alcohol Use History: Occasional Additional Past Alcohol Use History / Comment(s): SMOKES less than 1 PPD, SMOKING FOR 40 YEARS on/off. Past Drug Use History: None Reported - Past Family History Mother Family Medical History: Pulmonary Embolus Father Family Medical History: Unable to Obtain Medications and Allergies Home Medications Medication Instructions Recorded Confirmed Type traMADol HCL [Ultram] 50 mg PO BID PRN 09/18/16 04/01/20 History Aspirin EC [Ecotrin Low Dose] 81 mg PO DAILY 08/06/18 04/01/20 History Losartan [Cozaar] 12.5 mg PO DAILY #30 tab 08/09/18 04/01/20 Rx Nitroglycerin Sl Tabs [Nitrostat] 0.4 mg SUBLINGUAL Q5M PRN #25 tab 08/30/18 04/01/20 Rx Atorvastatin [Lipitor] 80 mg PO HS #90 tab 09/17/18 04/01/20 Rx Clopidogrel [Plavix] 75 mg PO DAILY #90 tab 09/17/18 04/01/20 Rx Isosorbide Mononitrate ER [Imdur] 10 mg PO BID 03/31/20 04/01/20 History Metoprolol Tartrate [Lopressor] 25 mg PO BID 03/31/20 04/01/20 History Hydrocodone/Acetaminophen [[place] 1 tab PO Q6HR PRN #10 tab 04/02/20 Rx 5-325] Allergies Allergy/AdvReac Type Severity Reaction Status Date / Time bee venom protein (honey bee) Allergy Swelling Verified 04/01/20 07:52 Penicillins Allergy Itching Verified 04/01/20 07:52 Physical Exam Vitals: Vital Signs Temp Pulse Resp BP Pulse Ox 04/02/20 21:00 97.7 F 55 L 18 118/75 97 04/02/20 04:06 97.7 F 90 18 133/83 96 04/01/20 23:29 63 18 Intake and Output 04/02/20 04/02/20 04/02/20 06:59 14:59 22:59 Intake Total 375 500 500 Balance 375 500 500 Intake: Intake, IV Titration 500 Amount Lactated Ringers 1,000 ml 500 @ 100 mls/hr IV .Q10H ONE Rx#:[id number] Oral 375 500 Other: Voiding Method Urinal Urinal Urinal # Voids 2 1 General: well nourished, well developed, NAD. Vitals reviewed Eyes: PERRL, EOMI, conjunctiva normal HENT: normocephalic, mucus membranes moist Neck: supple, no JVD Lungs: normal respiratory effort, no wheezes or rales CV: Regular rate and rhythm, no murmur. Peripheral pulses 2+ Abdomen: soft, nondistended, no organomegaly Lymph: no cervical or axillary LAD Skin: warm and dry. Neuro: A&Ox3, normal mood and affect Results CBC & Chem 7: 04/02/20 06:18 04/02/20 06:18 Labs: Abnormal Lab Results - Last 24 Hours (Table) 04/02/20 Range/Units 06:18 WBC 13.2 H (3.8-10.6) k/uL Neutrophils # 10.6 H (1.3-7.7) k/uL Assessment and Plan (1) Cholecystitis Current Visit: Yes Status: Acute Code(s): K81.9 - CHOLECYSTITIS, UNSPECIFIED SNOMED Code(s): 63885915 (2) Coronary artery disease Current Visit: Yes Status: Acute Code(s): I25.10 - ATHSCL HEART DISEASE OF [place] CORONARY ARTERY W/O ANG PCTRS SNOMED Code(s): 99063384 (3) Hypertension Current Visit: Yes Status: Acute Code(s): I10 - ESSENTIAL (PRIMARY) HYPERTENSION SNOMED Code(s): 87969351 Plan: 1. Cholecystitis s/p cholecystectomy. Your management 2. Coronary artery disease. Resume losartan, metoprolol, and lipitor tomorrow. continue to hold plavix
[2020-04-03] MEDS: HYDROcodone/APAP 5-325MG 1 EACH TAB PO PRN ×2 (03:10→08:25)
[2020-04-03 06:17] VITALS: BP 111/68; PULSE 58; TEMP 97.8
[2020-04-03] MEDS: ENOXAPARIN 40 MG/0.4 ML SYRINGE SQ SCH (08:16)
[2020-04-03] MEDS: PANTOPRAZOLE 40 MG/10 ML VIAL IVP SCH (08:17)
[2020-04-03] MEDS: DOCUSATE 100 MG CAP PO SCH (08:17)
[2020-04-03] MEDS: METOPROLOL TARTRATE 25 MG TAB PO SCH (08:22)
[2020-04-03] MEDS: NICOTINE 14MG/24HR PATCH TRANSDERM SCH (08:23)
[2020-04-03] MEDS ORDERED: LOSARTAN 25 MG TAB PO SCH (09:00)
[2020-04-03] MEDS ORDERED: ISOSORBIDE MONONITRATE 10 MG TAB PO SCH (09:00)
--- NOTE | 2020-04-03 10:34 | P.DS ---
Providers Date of admission: 04/02/20 07:29 Expected date of discharge: 04/03/20 Attending physician: Peng Hurst Consults: 04/01/20 10:01 Consult Physician Routine Consulting Provider: Pollo Kahn Reason/Comments: Medical management Do you want consulting provider notified?: Yes Primary care physician: Felisa Wong [facility] Course: 74-year-old male who underwent laparoscopic cholecystectomy and laparoscopic lysis of adhesions. Patient did well postoperatively. Please see hospital chart for details. Procedures: Laparoscopic ostectomy and lysis of adhesions Patient Condition at Discharge: Good Plan - Discharge Summary Discharge Rx Participant: No New Discharge Prescriptions: New Hydrocodone/Acetaminophen [[place] 5-325] 1 tab PO Q6HR PRN #10 tab PRN Reason: Pain No Action traMADol HCL [Ultram] 50 mg PO BID PRN PRN Reason: Pain Aspirin EC [Ecotrin Low Dose] 81 mg PO DAILY Losartan [Cozaar] 12.5 mg PO DAILY #30 tab Nitroglycerin Sl Tabs [Nitrostat] 0.4 mg SUBLINGUAL Q5M PRN #25 tab PRN Reason: Chest Pain Atorvastatin [Lipitor] 80 mg PO HS #90 tab Clopidogrel [Plavix] 75 mg PO DAILY #90 tab Isosorbide Mononitrate ER [Imdur] 10 mg PO BID Metoprolol Tartrate [Lopressor] 25 mg PO BID Discharge Medication List traMADol HCL [Ultram] 50 mg PO BID PRN 09/18/16 [History] Aspirin EC [Ecotrin Low Dose] 81 mg PO DAILY 08/06/18 [History] Losartan [Cozaar] 12.5 mg PO DAILY #30 tab 08/09/18 [Rx] Nitroglycerin Sl Tabs [Nitrostat] 0.4 mg SUBLINGUAL Q5M PRN #25 tab 08/30/18 [Rx] Atorvastatin [Lipitor] 80 mg PO HS #90 tab 09/17/18 [Rx] Clopidogrel [Plavix] 75 mg PO DAILY #90 tab 09/17/18 [Rx] Isosorbide Mononitrate ER [Imdur] 10 mg PO BID 03/31/20 [History] Metoprolol Tartrate [Lopressor] 25 mg PO BID 03/31/20 [History] Hydrocodone/Acetaminophen [[place] 5-325] 1 tab PO Q6HR PRN #10 tab 04/02/20 [Rx] Follow up Appointment(s)/Referral(s): Peng Hurst MD [STAFF PHYSICIAN] - 1 Week Activity/Diet/Wound Care/Special Instructions: No driving while taking [place] No lifting over 10 pounds You may shower. No soaking or tub baths Very light activity until you are reevaluated at your follow up appointment with your surgeon Discharge Disposition: HOME SELF-CARE
[2020-04-03] MEDS ORDERED: ATORVASTATIN 80 MG TAB PO SCH (21:00)
== END 2020-04-03 11:00 | disposition home or self-care (01) ==
LOC: OR 07:29 → 5NMEDONC 09:10 → OR 04-02 07:59
PROVIDERS: ADMIT Surgery; ATTEND Surgery
DX: K80.10 Calculus of gallbladder with chronic cholecystitis without obstruction (principal); Z03.818 Encounter for observation for suspected exposure to other biological agents ruled out; E78.5 Hyperlipidemia, unspecified; F17.200 Nicotine dependence, unspecified, uncomplicated; I10 Essential (primary) hypertension; I25.10 Atherosclerotic heart disease of native coronary artery without angina pectoris; I25.2 Old myocardial infarction; Z79.899 Other long term (current) drug therapy; Z86.79 Personal history of other diseases of the circulatory system; G47.30 Sleep apnea, unspecified; G89.29 Other chronic pain; M54.9 Dorsalgia, unspecified; Z95.5 Presence of coronary angioplasty implant and graft; Z82.49 Family history of ischemic heart disease and other diseases of the circulatory system; Z79.82 Long term (current) use of aspirin; Z79.02 Long term (current) use of antithrombotics/antiplatelets; Z79.891 Long term (current) use of opiate analgesic; Z88.0 Allergy status to penicillin; Z91.030 Bee allergy status
CPT/HCPCS: 88304; 80048; 85025; 87635; 47562; G0378 ×2; J2250; J1644; J1100; J2710; J0690; J2405; J2001; J1650 ×2; J3010; J0330; J2704; C9113 ×2; J1170

== ENCOUNTER 2020-05-31 15:04 | Emergency (ER) | payer MEDICARE ==
[2020-05-31 15:09] VITALS: TEMP 98.1
[2020-05-31] MEDS ORDERED: NITROGLYCERIN OINT 1 INCH/GM PACKET TOPICAL STA (15:37)
--- NOTE | 2020-05-31 15:39 | ED ---
Chest Pain HPI - General Chief Complaint: Chest Pain Stated Complaint: Chest pain Time Seen by Provider: 05/31/20 15:22 Source: patient, RN notes reviewed Mode of arrival: wheelchair Limitations: no limitations - History of Present Illness Initial Comments: This is a 54-year-old male with a history of heart disease who states he had the onset about 45 is prior to arrival of left-sided chest pain and left arm numbness. Clammy look pale according to his . No fevers chills no nausea vomiting no overt shortness of breath. He did take nitroglycerin at home and did get some relief. She is a pain was only 3/10 severity now she is tight low- grade tightness over the left side of his chest. Does feel similar to what he had the past. MD Complaint: chest pain - Related Data Home Medications Medication Instructions Recorded Confirmed traMADol HCL [Ultram] 50 mg PO BID 09/18/16 05/31/20 Atorvastatin [Lipitor] 40 mg PO HS 05/31/20 05/31/20 Isosorbide Mononitrate [Is[place]] 5 mg PO BID 05/31/20 05/31/20 Losartan [Cozaar] 12.5 mg PO HS 05/31/20 05/31/20 Metoprolol Tartrate [Lopressor] 25 mg PO BID 05/31/20 05/31/20 Pantoprazole [Protonix] 40 mg PO DAILY 05/31/20 05/31/20 Previous Rx's Medication Instructions Recorded Nitroglycerin Sl Tabs [Nitrostat] 0.4 mg SUBLINGUAL Q5M PRN #25 tab 08/30/18 Clopidogrel [Plavix] 75 mg PO DAILY #90 tab 09/17/18 Nitroglycerin Sl Tabs [Nitrostat] 0.4 mg SUBLINGUAL Q5M PRN #25 tab 05/31/20 Allergies Allergy/AdvReac Type Severity Reaction Status Date / Time bee venom protein (honey bee) Allergy Itching Verified 05/31/20 17:05 Penicillins Allergy Itching Verified 05/31/20 17:05 Review of Systems ROS Statement: Those systems with pertinent positive or pertinent negative responses have been documented in the HPI. ROS Other: All systems not noted in ROS Statement are negative. EKG Findings - EKG Results: EKG: interpreted by ESTELLA, sinus rhythm (Sinus bradycardia rate of 52 ME interval 196 QRS duration 112 QT since QTC 44/[address]-T wave changes) Past Medical History Past Medical History: Coronary Artery Disease (CAD), Chest Pain / Angina, Hyperlipidemia, Myocardial Infarction ([place]), Musculoskeletal Disorder, Sleep Apnea/CPAP/BIPAP Additional Past Medical History / Comment(s): Hx ABDOMINAL AORTIC ANEURYSM repair done at [facility] 2016, Chronic Back Pain. No CPAP used. Pos gallstones. Last Myocardial Infarction Date:: 08/06/18 History of Any Multi-Drug Resistant Organisms: None Reported Past Surgical History: Back Surgery, Cholecystectomy, Heart Catheterization With Stent, Hernia Repair, Tonsillectomy Additional Past Surgical History / Comment(s): INGUINAL HERNIA X2, ABD HERNIA SURGERY X2 (VENTRAL HERNIA 06/18/18). AAA repair. Colonoscopy. Laporoscopic Cholecystectomy 04/01/20. Past Anesthesia/Blood Transfusion Reactions: No Reported Reaction Date of Last Stent Placement:: 2017 Past Psychological History: Depression Smoking Status: Current every day smoker Past Alcohol Use History: Occasional Past Drug Use History: None Reported - Past Family History Mother Family Medical History: Pulmonary Embolus Father Family Medical History: Unable to Obtain General Exam - General Exam Comments Initial Comments: This is a well-developed well-nourished awake alert oriented times 3 male Limitations: no limitations General appearance: alert, in no apparent distress Head exam: Present: atraumatic, normocephalic, normal inspection Eye exam: Present: normal appearance, PERRL, EOMI. Absent: scleral icterus, conjunctival injection, periorbital swelling ENT exam: Present: normal exam, mucous membranes moist Neck exam: Present: normal inspection. Absent: tenderness, meningismus, ly mphadenopathy Respiratory exam: Present: normal lung sounds bilaterally. Absent: respiratory distress, wheezes, rales, rhonchi, stridor Cardiovascular Exam: Present: regular rate, normal rhythm, normal heart sounds. Absent: systolic murmur, diastolic murmur, rubs, gallop, clicks GI/Abdominal exam: Present: soft, normal bowel sounds. Absent: distended, tenderness, guarding, rebound, rigid Extremities exam: Present: normal inspection, full ROM, normal capillary refill. Absent: tenderness, pedal edema, joint swelling, calf tenderness Back exam: Present: normal inspection Neurological exam: Present: alert, oriented X3, CN II-XII intact Psychiatric exam: Present: normal affect, normal mood Skin exam: Present: warm, dry, intact, normal color. Absent: rash Course Vital Signs 05/31/20 05/31/20 05/31/20 15:05 15:20 15:28 Temperature 98.1 F Pulse Rate 65 54 L 57 L Respiratory 18 16 18 Rate Blood Pressure 120/75 126/80 O2 Sat by Pulse 97 97 97 Oximetry 05/31/20 05/31/20 05/31/20 15:30 15:40 15:50 Temperature Pulse Rate 57 L 53 L 58 L Respiratory 18 16 18 Rate Blood Pressure 126/80 109/75 109/75 O2 Sat by Pulse 97 97 97 Oximetry 05/31/20 05/31/20 05/31/20 16:00 16:10 16:14 Temperature Pulse Rate 53 L 57 L 54 L Respiratory 18 18 18 Rate Blood Pressure 109/75 97/61 111/64 O2 Sat by Pulse 98 94 L 99 Oximetry 05/31/20 05/31/20 05/31/20 16:20 16:30 16:40 Temperature Pulse Rate 52 L 49 L Respiratory 12 14 11 L Rate Blood Pressure 111/64 111/64 109/47 O2 Sat by Pulse 99 98 99 Oximetry 05/31/20 05/31/20 16:50 17:00 Temperature Pulse Rate 51 L Respiratory 17 Rate Blood Pressure 109/47 109/47 O2 Sat by Pulse 98 Oximetry Chest Pain MDM - MDM Did review the imaging and report no definite acute findings. No evidence of PE. He stated complete report I did discuss Pfizer the patient's was present. 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 He does not have nitroglycerin is up-to-date at home I will give him a prescription for this we did discuss return parameters and again I did discuss the [employer] this may be a presentation of unstable angina ACS the patient is fully aware of this and agrees to accept responsibility. 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
[2020-05-31 15:43] LABS: Basophils % (A) 0 %; Eosinophils # (A) 0.3 k/uL (0-0.7); Eosinophils % (A) 3 %; HCT 47.8 % (39.0-53.0); HGB 15.3 gm/dL (13.0-17.5); Lymphocytes # (A) 1.9 k/uL (1.0-4.8); Lymphocytes % (A) 18 %; MCH 31.3 pg (25.0-35.0); MCV 97.9 fL (80.0-100.0); Mean Platelet Volume 7.3; Monocytes # (A) 0.6 k/uL (0-1.0); Monocytes % (A) 6 %; Neutrophils # (A) 7.5 k/uL (1.3-7.7); Neutrophils % (A) 72 %; Platelet Count 235 k/uL (150-450); RBC 4.89 m/uL (4.30-5.90); RDW 12.2 % (11.5-15.5); WBC 10.4 k/uL (3.8-10.6)
[2020-05-31 15:51] LABS: ALT 17 U/L (4-49); AST 22 U/L (17-59); African American GFR (CKD) >90 (>60 ml/min/1.73 sqM); Albumin 4.2 g/dL (3.5-5.0); Alkaline Phosphatase 93 U/L (38-126); Anion Gap 8 mmol/L; Blood Urea Nitrogen 12 mg/dL (9-20); Calcium 9.4 mg/dL (8.4-10.2); Carbon Dioxide 22 mmol/L (22-30); Chloride 106 mmol/L (98-107); Creatine Kinase 75 U/L (55-170); Glucose 128 mg/dL (74-99); Magnesium 2.1 mg/dL (1.6-2.3); Non-African American GFR(CKD) >90 (>60 ml/min/1.73 sqM); Potassium 3.8 mmol/L (3.5-5.1); Sodium 136 mmol/L (137-145); Total Bilirubin 0.7 mg/dL (0.2-1.3); Total Protein 6.9 g/dL (6.3-8.2)
[2020-05-31 16:00] LABS: Partial Thromboplastin Time 24.3 sec (22.0-30.0)
--- NOTE | 2020-05-31 16:02 | XR ---
EXAMINATION TYPE: XR chest 2V DATE OF EXAM: 05/31/2020 COMPARISON: Prior chest x-ray 09/15/2018 HISTORY: Chest pain TECHNIQUE: Frontal and lateral views of the chest are obtained. FINDINGS: There is no focal air space opacity, pleural effusion, or pneumothorax seen. The cardiac silhouette size is within normal limits. The osseous structures are intact. IMPRESSION: No acute cardiopulmonary process.
[2020-05-31 16:06] LABS: D-Dimer 4.46 mg/L FEU (<0.60)
[2020-05-31 17:06] VITALS: RESP 17
--- NOTE | 2020-05-31 17:49 | CT ---
EXAMINATION TYPE: CT angio chest DATE OF EXAM: 05/31/2020 COMPARISON: None HISTORY: Chest pain CT DLP: mGycm Automated exposure control for dose reduction was used. CONTRAST: Performed , patient injected with mL of . The contrast was Isovue 80 mL. There are 3-D post processed images. FINDINGS: Thoracic aorta appears intact. There is no sign of aneurysm or dissection. There is no mediastinal ad enopathy. There are no hilar masses. Ascending aorta measures 3.4 cm. There is normal contrast opacification of the pulmonary arteries. There are no filling defects. There is no pleural effusion. The lungs are clear of consolidation. There is no pericardial effusion. There is no pneumothorax. There is mild pulmonary emphysema. There is minimal interstitial infiltrate posterior lung bases. The re is stent in the abdominal aorta. IMPRESSION: No evidence of pulmonary embolism. Mild pulmonary emphysema. Mild subsegmental atelectasis and inters titial infiltrate at the lung bases.
[2020-05-31 18:32] VITALS: BP 110/61; PULSE 67
== END 2020-05-31 18:32 | disposition home or self-care (01) ==
LOC: EC 15:04
DX: R07.9 Chest pain, unspecified (principal); R20.0 Anesthesia of skin; I25.119 Atherosclerotic heart disease of native coronary artery with unspecified angina pectoris; E78.5 Hyperlipidemia, unspecified; I25.2 Old myocardial infarction; G47.30 Sleep apnea, unspecified; F17.200 Nicotine dependence, unspecified, uncomplicated; Z79.899 Other long term (current) drug therapy; Z88.0 Allergy status to penicillin; Z91.030 Bee allergy status; Z99.89 Dependence on other enabling machines and devices; Z95.5 Presence of coronary angioplasty implant and graft
CPT/HCPCS: 36415; 93005; 85379; 83880; 80053; 82550; 83735; 84484; 85025; 85610; 85730; 71046; 71275; 99285; Q9967

== ENCOUNTER 2020-07-19 22:44 | Observation (INO) | payer MEDICARE ==
[2020-07-19] MEDS ORDERED: MORPHINE SULFATE 4 MG/ML SYRINGE IV STA (23:01)
[2020-07-19] MEDS ORDERED: ONDANSETRON 4 MG/2 ML VIAL IVP STA (23:01)
[2020-07-19 23:33] LABS: Basophils # (A) 0.1 k/uL (0-0.2); Basophils % (A) 1 %; Eosinophils # (A) 0.7 k/uL (0-0.7); Eosinophils % (A) 9 %; HCT 43.7 % (39.0-53.0); HGB 14.2 gm/dL (13.0-17.5); Lymphocytes # (A) 2.3 k/uL (1.0-4.8); Lymphocytes % (A) 27 %; MCH 31.4 pg (25.0-35.0); MCHC 32.5 g/dL (31.0-37.0); MCV 96.5 fL (80.0-100.0); Mean Platelet Volume 7.3; Monocytes # (A) 0.5 k/uL (0-1.0); Monocytes % (A) 6 %; Neutrophils # (A) 4.7 k/uL (1.3-7.7); Neutrophils % (A) 56 %; Platelet Count 208 k/uL (150-450); RBC 4.52 m/uL (4.30-5.90); RDW 12.8 % (11.5-15.5); WBC 8.4 k/uL (3.8-10.6)
--- NOTE | 2020-07-19 23:53 | CT ---
EXAMINATION TYPE: CT angio thor/abd pel aorta DATE OF EXAM: 07/19/2020 COMPARISON: 11/28/2019 and 05/31/2020 HISTORY: R/o AAA, Left side Abd Pain CT DLP: 1510.80 mGycm Automated exposure control for dose reduction was used. CONTRAST: Performed with IV Contrast, patient injected with 100 mL of Isovue 370. There are 3-D post processed images. Images were obtained from the thoracic inlet to the floor the pelvis without and subsequently with IV contrast. FINDINGS: There is normal branching pattern of the great vessels on the aortic arch. There is no mediastinal ad enopathy. Thoracic aorta is intact. Pulmonary arteries appear normal. There are no hilar masses. Hear t size is normal. There is no pericardial effusion. Lungs are clear of consolidation. There is mild pulmonary emphysema. There is mild scarring or subseg mental atelectasis at the right lung base. Upper abdominal aorta has normal size. There is aorto iliac endograft in good position. There is norm al contrast opacification of the endograft. There is aneurysm of the lower abdominal aorta that measu res up to 4.9 cm in diameter. There is patency of the renal arteries and celiac artery and superior m esenteric artery. There is arterial flow in the iliac and femoral arteries. I see no evidence of hemo dynamic stenosis. Liver spleen stomach pancreas appear normal. Bile ducts are not dilated. Gallbladder is absent. Kidne ys show satisfactory contrast opacification. There is no hydronephrosis. There is no adrenal mass. Ur eters are not dilated. There is no retroperitoneal adenopathy. There is no mesenteric edema. There is no ascites or free air. There is no bowel obstruction. Bladder distends smoothly. There is posterior fusion surgery from L4 to S1. There is no thoracic or lumbar c ompression fracture. IMPRESSION: There is wide patency of the endograft. There is 4.9 cm aneurysm of the lower abdominal aorta not uday nged in size compared to 11/28/2019. No evidence of pulmonary embolism. No evidence of hemodynamic jonathan nosis.
[2020-07-19 23:54] LABS: INR 0.9 (<1.2); Partial Thromboplastin Time 23.6 sec (22.0-30.0); Prothrombin Time 9.5 sec (9.0-12.0)
[2020-07-19 23:57] LABS: ALT 28 U/L (4-49); AST 27 U/L (17-59); African American GFR (CKD) >90 (>60 ml/min/1.73 sqM); Albumin 4.2 g/dL (3.5-5.0); Alkaline Phosphatase 76 U/L (38-126); Anion Gap 9 mmol/L; Blood Urea Nitrogen 13 mg/dL (9-20); Calcium 9.4 mg/dL (8.4-10.2); Carbon Dioxide 24 mmol/L (22-30); Chloride 105 mmol/L (98-107); Glucose 122 mg/dL (74-99); Magnesium 2.1 mg/dL (1.6-2.3); Non-African American GFR(CKD) 83 (>60 ml/min/1.73 sqM); Sodium 138 mmol/L (137-145); Total Bilirubin 0.3 mg/dL (0.2-1.3); Total Protein 6.8 g/dL (6.3-8.2)
[2020-07-20] MEDS ORDERED: MORPHINE SULFATE 4 MG/ML SYRINGE IV PRN (00:26)
[2020-07-20] MEDS ORDERED: NITROGLYCERIN SL TABS 0.4 MG TAB SUBLINGUAL PRN (00:26)
[2020-07-20] MEDS ORDERED: ASPIRIN 81 MG PO STA (00:26)
--- NOTE | 2020-07-20 00:33 | ED ---
General Adult HPI - General Chief complaint: Chest Pain Stated complaint: Chest pain Time Seen by Provider: 07/19/20 22:54 Source: patient Mode of arrival: ambulatory Limitations: no limitations - Related Data Home Medications Medication Instructions Recorded Confirmed traMADol HCL [Ultram] 50 mg PO BID 09/18/16 05/31/20 Atorvastatin [Lipitor] 40 mg PO HS 05/31/20 05/31/20 Isosorbide Mononitrate [Ismo] 5 mg PO BID 05/31/20 05/31/20 Losartan [Cozaar] 12.5 mg PO HS 05/31/20 05/31/20 Metoprolol Tartrate [Lopressor] 25 mg PO BID 05/31/20 05/31/20 Pantoprazole [Protonix] 40 mg PO DAILY 05/31/20 05/31/20 Previous Rx's Medication Instructions Recorded Nitroglycerin Sl Tabs [Nitrostat] 0.4 mg SUBLINGUAL Q5M PRN #25 tab 08/30/18 Clopidogrel [Plavix] 75 mg PO DAILY #90 tab 09/17/18 Nitroglycerin Sl Tabs [Nitrostat] 0.4 mg SUBLINGUAL Q5M PRN #25 tab 05/31/20 Allergies Allergy/AdvReac Type Severity Reaction Status Date / Time bee venom protein (honey bee) Allergy Itching Verified 07/19/20 22:48 Penicillins Allergy Itching Verified 07/19/20 22:48 Review of Systems ROS Statement: Those systems with pertinent positive or pertinent negative responses have been documented in the HPI. ROS Other: All systems not noted in ROS Statement are negative. Past Medical History Past Medical History: Coronary Artery Disease (CAD), Chest Pain / Angina, Hyperlipidemia, Myocardial Infarction ([place]), Musculoskeletal Disorder, Sleep Apnea/CPAP/BIPAP Additional Past Medical History / Comment(s): Hx ABDOMINAL AORTIC ANEURYSM repair done at [facility] 2016, Chronic Back Pain. No CPAP used. Pos gallstones. Last Myocardial Infarction Date:: 08/06/18 History of Any Multi-Drug Resistant Organisms: None Reported Past Surgical History: Back Surgery, Cholecystectomy, Heart Catheterization With Stent, Hernia Repair, Tonsillectomy Additional Past Surgical History / Comment(s): INGUINAL HERNIA X2, ABD HERNIA SURGERY X2 (VENTRAL HERNIA 06/18/18). AAA repair. Colonoscopy. Laporoscopic Cholecystectomy 04/01/20. 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 Ventricular rate is 77, P return of a 164, QRS duration 92, QT 358, QTC 405. No evidence of ST elevation or depression. Medical Decision Making - Medical Decision Making 54-year-old male patient presents to the emergency department today for evaluation of left-sided chest pain with radiation to the left shoulder and scapular region. He is also reporting left-sided abdominal discomfort. Reports and nausea and lightheadedness. Physical examination did reveal some mild abdominal tenderness. He does have history of abdominal aortic aneurysm 2, one has been repaired in the past, they are monitoring the other. EKG showed normal sinus rhythm with a sinus arrhythmia, no ST elevation or depression. CT angio of the thoracic, abdominal, pelvic aorta was negative for any acute abnormalities. Patient does have a history of coronary artery disease with 3 stents. We'll admit to the hospital for further evaluation by cardiology and serial troponins. Patient is agreeable this plan. - Lab Data Result diagrams: 07/19/20 23:12 07/19/20 23:12 Lab Results 07/19/20 07/19/20 07/19/20 Range/Units 23:12 23:12 23:12 WBC 8.4 (3.8-10.6) k/uL RBC 4.52 (4.30-5.90) m/uL Hgb 14.2 (13.0-17.5) gm/dL Hct 43.7 (39.0-53.0) % MCV 96.5 (80.0-100.0) fL MCH 31.4 (25.0-35.0) pg MCHC 32.5 (31.0-37.0) g/dL RDW 12.8 (11.5-15.5) % Plt Count 208 (150-450) k/uL Neutrophils % 56 % Lymphocytes % 27 % Monocytes % 6 % Eosinophils % 9 % Basophils % 1 % Neutrophils # 4.7 (1.3-7.7) k/uL Lymphocytes # 2.3 (1.0-4.8) k/uL Monocytes # 0.5 (0-1.0) k/uL Eosinophils # 0.7 (0-0.7) k/uL Basophils # 0.1 (0-0.2) k/uL PT 9.5 (9.0-12.0) sec INR 0.9 (<1.2) APTT 23.6 (22.0-30.0) sec Sodium 138 (137-145) mmol/L Potassium 4.0 (3.5-5.1) mmol/L Chloride 105 (98-107) mmol/L Carbon Dioxide 24 (22-30) mmol/L Anion Gap 9 mmol/L BUN 13 (9-20) mg/dL Creatinine 1.02 (0.66-1.25) mg/dL Est GFR (CKD-EPI)AfAm >90 (>60 ml/min/1.73 sqM) Est GFR (CKD-EPI)NonAf 83 (>60 ml/min/1.73 sqM) Glucose 122 H (74-99) mg/dL Calcium 9.4 (8.4-10.2) mg/dL Magnesium 2.1 (1.6-2.3) mg/dL Total Bilirubin 0.3 (0.2-1.3) mg/dL AST 27 (17-59) U/L ALT 28 (4-49) U/L Alkaline Phosphatase 76 (38-126) U/L Troponin I (0.000-0.034) ng/mL Total Protein 6.8 (6.3-8.2) g/dL Albumin 4.2 (3.5-5.0) g/dL Lipase 114 (23-300) U/L 07/19/20 Range/Units 23:12 WBC (3.8-10.6) k/uL RBC (4.30-5.90) m/uL Hgb (13.0-17.5) gm/dL Hct (39.0-53.0) % MCV (80.0-100.0) fL MCH (25.0-35.0) pg MCHC (31.0-37.0) g/dL RDW (11.5-15.5) % Plt Count (150-450) k/uL Neutrophils % % Lymphocytes % % Monocytes % % Eosinophils % % Basophils % % Neutrophils # (1.3-7.7) k/uL Lymphocytes # (1.0-4.8) k/uL Monocytes # (0-1.0) k/uL Eosinophils # (0-0.7) k/uL Basophils # (0-0.2) k/uL PT (9.0-12.0) sec INR (<1.2) APTT (22.0-30.0) sec Sodium (137-145) mmol/L Potassium (3.5-5.1) mmol/L Chloride (98-107) mmol/L Carbon Dioxide (22-30) mmol/L Anion Gap mmol/L BUN (9-20) mg/dL Creatinine (0.66-1.25) mg/dL Est GFR (CKD-EPI)AfAm (>60 ml/min/1.73 sqM) Est GFR (CKD-EPI)NonAf (>60 ml/min/1.73 sqM) Glucose (74-99) mg/dL Calcium (8.4-10.2) mg/dL Magnesium (1.6-2.3) mg/dL Total Bilirubin (0.2-1.3) mg/dL AST (17-59) U/L ALT (4-49) U/L Alkaline Phosphatase (38-126) U/L Troponin I <0.012 (0.000-0.034) ng/mL Total Protein (6.3-8.2) g/dL Albumin (3.5-5.0) g/dL Lipase (23-300) U/L - Radiology Data Radiology results: report reviewed, image reviewed CT angiography of the thoracic, abdominal, pelvic aorta was obtained. Report was reviewed in its entirety. Impression by Dr. Galaviz shows wide patency of the endograft. There is 4.9 cm aneurysm of the lower abdominal aorta is not changed in size compared to 11/28/2019. No evidence of pulmonary embolism. No evidence of hemodynamic stenosis. Disposition Clinical Impression: Chest pain Disposition: ADMITTED IP TO THIS HOSP Condition: Serious Referrals: Felisa Wong DO [Primary Care Provider] - 1-2 days Decision to Admit Reason: Admit from EC Decision Date: 07/20/20 Decision Time: 00:31
[2020-07-20] MEDS ORDERED: MORPHINE SULFATE 4 MG/ML SYRINGE IVP STA (00:48)
[2020-07-20 08:27] VITALS: RESP 16; TEMP 97.7
[2020-07-20 08:40] LABS: Cholesterol 172 mg/dL (<200); HDL Cholesterol 35 mg/dL (40-60); LDL Cholesterol,Calculated 111 mg/dL (0-99); Triglycerides 129 mg/dL (<150)
[2020-07-20] MEDS ORDERED: REGADENOSON 0.4 MG/5 ML SYRINGE IV ONE (08:51)
[2020-07-20] MEDS ORDERED: CAFFEINE CITRATE 60 MG/3 ML VIAL IV PRN (08:51)
[2020-07-20] MEDS ORDERED: AMINOPHYLLINE 500 MG/20 ML VIAL IV PRN (08:51)
[2020-07-20] MEDS ORDERED: ISOSORBIDE MONONITRATE 10 MG TAB PO SCH (09:00)
[2020-07-20] MEDS ORDERED: traMADol 50 MG TAB PO SCH (09:00)
[2020-07-20] MEDS ORDERED: PANTOPRAZOLE 40 MG TABLET PO SCH (09:00)
[2020-07-20] MEDS ORDERED: ASPIRIN 81 MG PO SCH (09:00)
[2020-07-20] MEDS ORDERED: METOPROLOL TARTRATE 25 MG TAB PO SCH (09:00)
--- NOTE | 2020-07-20 09:48 | P.CRDCN ---
History of Present Illness History of present illness: HISTORY OF PRESENTING ILLNESS This is a pleasant 54-year-old male past medical history significant for coronary artery disease status post PCI of the RCA and circumflex, dyslipide linda, hypertension, myocardial infarction 2018, peripheral vascular disease status post abdominal aortic aneurysm repair and chronic nicotine dependence. He follows in the office with a mortgage processor in [place]. We have been asked to see in consultation for chest pain. He states for the previous one month he has been experiencing abdominal discomfort on the left side in the upper and lower quadrant associated with nausea. His pain is been ongoing and persistent not associated with vomiting or diarrhea. He is tender on palpation. He is scheduled to undergo colonoscopy with Dr. Ann this week. However yesterday he developed a pressure sensation in the left precordial region that radiated through to the left scapula and was associated with mild shortness of breath. In 2018 he underwent cardiac catheterization with Dr. Swanson secondary to persistent chest discomfort. Left main was free of stenosis, LAD was aneurysmal and ectatic area in the proximal portion that is remain unchanged from prior cardiac catheterization, proximal circumflex was recently stented and patent, RCA stent is patent proximal to the stent there is an aneurysmal area that is remain unchanged from the previous cath. According to the patient since changing cardiologists he has had no further catheterizations or stress test performed. Most recent echocardiogram from 2018 revealed preserved LV systolic function with ejection fraction 55-60%. DIAGNOSTICS EKG reveals sinus mechanism with no acute ischemic changes. CT of the thoracic aorta reveals a patent endograft with a 4.9 cm aneurysm stable from previous study. Laboratory reviewed, CBC unremarkable, sodium 138, potassium 4.0, creatinine 1.02, cardiac enzymes negative 3, LDL 111 and HDL 35. Current cardiac medications include isosorbide mononitrate 5 mg twice a day, Lopressor 25 mg daily, losartan 12.5 mg at bedtime, Plavix 75 mg daily, a torvastatin 40 mg daily and aspirin 81 mg daily. REVIEW OF SYSTEMS At the time of my exam: CONSTITUTIONAL: Denies fever or chills. CARDIOVASCULAR: Denies chest pain, shortness of breath, orthopnea, PND or palpitations. RESPIRATORY: Denies cough. GASTROINTESTINAL: Denies abdominal pain, diarrhea, constipation, nausea or vomiting. MUSCULOSKELETAL: Denies myalgias. NEUROLOGIC: Denies numbness, tingling or weakness. ENDOCRINE: Denies fatigue, weight change, polydipsia or polyurina. GENITOURINARY: Denies burning, hematuria or urgency with micturation. HEMATOLOGIC: Denies history of anemia or bleeding. PHYSICAL EXAMINATION Blood pressure 114/62 heart rate 64 afebrile and maintaining oxygen saturation on room air. CONSTITUTIONAL: No apparent distress. HEENT: Head is normocephalic. Pupils are equal, round. Sclerae anicteric. Mucous membranes of the mouth are moist. No JVD. No carotid bruit. CHEST EXAMINATION: Lungs are clear to auscultation. No chest wall tenderness is noted on palpation or with deep breathing. HEART EXAMINATION: Regular rate and rhythm. S1, S2 heard. No murmurs, gallops or rub. ABDOMEN: Soft, mildly tender on the left with deep palpation. Positive bowel sounds. EXTREMITIES: 2+ peripheral pulses, no lower extremity edema and no calf tenderness. NEUROLOGIC EXAMINATION: Patient is awake, alert and oriented x3. ASSESSMENT Chest pain, atypical for angina. History of coronary artery disease status post PCI of the RCA and circumflex artery in the setting of an acute myocardial infarction Hypertension Dyslipidemia Peripheral vascular disease status post aortic endograft repair Chronic nicotine dependence PLAN An acute coronary event has been ruled out. Obtain 2-D echocardiogram and Doppler study to assess cardiac structure and function. Perform Lexiscan stress test to assess for reversible cardiac ischemia. Increase atorvastatin to 80 mg daily for target LDL of less than 70. Medical management and evaluation of ongoing abdominal discomfort. Discontinue Plavix as his PCI has been over 12 months ago. Continue daily aspirin 81 mg. Smoking cessation recommended. Thank you kindly for this consultation. Nurse Practitioner note has been reviewed, I agree with a documented findings and plan of care. Patient was seen and examined. Past Medical History Past Medical History: Coronary Artery Disease (CAD), Chest Pain / Angina, Hyperlipidemia, Myocardial Infarction ([place]), Musculoskeletal Disorder, Sleep Apnea/CPAP/BIPAP Additional Past Medical History / Comment(s): Hx ABDOMINAL AORTIC ANEURYSM repair done at [facility] 2016, Chronic Back Pain. No CPAP used. Pos gallstones. Last Myocardial Infarction Date:: 08/06/18 History of Any Multi-Drug Resistant Organisms: None Reported Past Surgical History: Back Surgery, Cholecystectomy, Heart Catheterization With Stent, Hernia Repair, Tonsillectomy Additional Past Surgical History / Comment(s): INGUINAL HERNIA X2, ABD HERNIA SURGERY X2 (VENTRAL HERNIA 06/18/18). AAA repair. Colonoscopy. Laporoscopic Cholecystectomy 04/01/20. Past Anesthesia/Blood Transfusion Reactions: No Reported Reaction Date of Last Stent Placement:: 2017 Past Psychological History: Depression Additional Psychological History / Comment(s): Denies currsnt depression Smoking Status: Current some day smoker Past Alcohol Use History: Occasional Additional Past Alcohol Use History / Comment(s): SMOKES less than 1 PPD, SMOKING FOR 40 YEARS on/off. Past Drug Use History: None Reported - Past Family History Mother Family Medical History: Pulmonary Embolus Father Family Medical History: Unable to Obtain Medications and Allergies Home Medications Medication Instructions Recorded Confirmed Type traMADol HCL [Ultram] 100 mg PO DAILY 09/18/16 07/20/20 History Clopidogrel [Plavix] 75 mg PO DAILY #90 tab 09/17/18 07/20/20 Rx Atorvastatin [Lipitor] 40 mg PO HS 05/31/20 07/20/20 History Isosorbide Mononitrate [Ismo] 5 mg PO BID 05/31/20 07/20/20 History Losartan [Cozaar] 12.5 mg PO HS 05/31/20 07/20/20 History Metoprolol Tartrate [Lopressor] 25 mg PO DAILY 05/31/20 07/20/20 History Nitroglycerin Sl Tabs [Nitrostat] 0.4 mg SUBLINGUAL Q5M PRN #25 tab 05/31/20 07/20/20 Rx Pantoprazole [Protonix] 40 mg PO DAILY 05/31/20 07/20/20 History Aspirin EC [Ecotrin Low Dose] 81 mg PO DAILY 07/20/20 07/20/20 History DULoxetine HCL [Cymbalta] 60 mg PO DAILY 07/20/20 07/20/20 History Allergies Allergy/AdvReac Type Severity Reaction Status Date / Time bee venom protein (honey bee) Allergy Itching Verified 07/20/20 08:31 Penicillins Allergy Itching Verified 07/20/20 08:31 Physical Exam Vitals: Vital Signs Temp Pulse Pulse Resp BP BP Pulse Ox 07/20/20 07:22 96 07/20/20 02:59 98.2 F 63 109/69 94 L 07/20/20 02:55 63 07/20/20 01:24 97.7 F 66 115/77 96 07/20/20 01:05 68 18 131/86 07/20/20 00:30 69 18 109/83 99 07/19/20 23:39 69 07/19/20 22:46 98.1 F 79 20 158/89 99 Intake and Output 07/19/20 07/20/20 07/20/20 22:59 06:59 14:59 Intake Total 0 Output Total 0 Balance 0 Intake: Oral 0 Output: Urine 0 Other: Voiding Method Toilet # Voids 0 Weight 87.543 kg 87.543 kg Results 07/19/20 23:12 07/19/20 23:12 Cardiac Enzymes 07/19/20 07/19/20 07/20/20 Range/Units 23:12 23:12 02:57 AST 27 (17-59) U/L Troponin I <0.012 <0.012 (0.000-0.034) ng/mL 07/20/20 Range/Units 05:49 AST (17-59) U/L Troponin I <0.012 (0.000-0.034) ng/mL Coagulation 07/19/20 Range/Units 23:12 PT 9.5 (9.0-12.0) sec APTT 23.6 (22.0-30.0) sec CBC 07/19/20 Range/Units 23:12 WBC 8.4 (3.8-10.6) k/uL RBC 4.52 (4.30-5.90) m/uL Hgb 14.2 (13.0-17.5) gm/dL Hct 43.7 (39.0-53.0) % Plt Count 208 (150-450) k/uL Comprehensive Metabolic Panel 07/19/20 Range/Units 23:12 Sodium 138 (137-145) mmol/L Potassium 4.0 (3.5-5.1) mmol/L Chloride 105 (98-107) mmol/L Carbon Dioxide 24 (22-30) mmol/L BUN 13 (9-20) mg/dL Creatinine 1.02 (0.66-1.25) mg/dL Glucose 122 H (74-99) mg/dL Calcium 9.4 (8.4-10.2) mg/dL AST 27 (17-59) U/L ALT 28 (4-49) U/L Alkaline Phosphatase 76 (38-126) U/L Total Protein 6.8 (6.3-8.2) g/dL Albumin 4.2 (3.5-5.0) g/dL Current Medications Generic Name Dose Route Start Last Admin Trade Name Freq PRN Reason Stop Dose Admin Atorvastatin Calcium 40 mg 07/20/20 21:00 Lipitor PO HS [facility] Isosorbide Mononitrate 5 mg 07/20/20 09:00 Ismo PO BID [facility] Losartan Potassium 12.5 mg 07/20/20 21:00 Cozaar PO HS [facility] Metoprolol Tartrate 25 mg 07/20/20 09:00 Lopressor PO BID [facility] Morphine Sulfate 4 mg 07/20/20 00:26 Morphine Sulfate (Inj) IV Q3H PRN Chest Pain Nitroglycerin 0.4 mg 07/20/20 00:26 07/20/20 03:18 Nitrostat SUBLINGUAL 0.4 mg Q5M PRN Administration Chest Pain Pantoprazole Sodium 40 mg 07/20/20 09:00 Protonix PO DAILY [facility] Tramadol HCl 50 mg 07/20/20 09:00 Ultram PO BID [facility] Intake and Output 07/19/20 07/20/20 07/20/20 22:59 06:59 14:59 Intake Total 0 Output Total 0 Balance 0 Intake: Oral 0 Output: Urine 0 Other: Voiding Method Toilet # Voids 0 Weight 87.543 kg 87.543 kg 07/19/20 23:12 07/19/20 23:12
[2020-07-20] MEDS ORDERED: DULoxetine HCL 60 MG CAPSULE.DR PO SCH (10:15)
--- NOTE | 2020-07-20 11:01 | ECHOF ---
Referral Reason:cp MEASUREMENTS -------- HEIGHT: 182.9 cm WEIGHT: 87.5 kg BP: RVIDd: 3.2 cm (< 3.3) IVSd: 1.2 cm (0.6 - 1.1) LVIDd: 4.0 cm (3.9 - 5.3) LVPWd: 1.3 cm (0.6 - 1.1) IVSs: 1.8 cm LVIDs: 3.0 cm LVPWs: 1.5 cm LA Diam: 3.6 cm (2.7 - 3.8) LAESV Index (A-L): 27.88 ml/m Ao Diam: 3.4 cm (2.0 - 3.7) AV Cusp: 2.4 cm (1.5 - 2.6) MV EXCURSION: 16.594 mm (> 18.000) MV EF SLOPE: 80 mm/s (70 - 150) EPSS: 0.7 cm MV E José: 0.72 m/s MV DecT: 189 ms MV A José: 0.71 m/s MV E/A Ratio: 1.02 AR PHT: 675 ms RAP: 5.00 mmHg RVSP: 25.10 mmHg FINDINGS -------- Sinus rhythm. This was a technically good study. The left ventricular size is normal. There is mild concentric left ventricular hypertrophy. Overa ll left ventricular systolic function is normal with, an EF between 60 - 65 %. The right ventricle is normal in size. Normal LA size by volume 22+/-6 ml/m2. The right atrium is normal in size. Interatrial and interventricular septum intact. The aortic valve is trileaflet and appears structurally normal. There is trace to mild mitral regurgitation. Mild tricuspid regurgitation present. Right ventricular systolic pressure is normal at < 35 mmHg. Trace/mild (physiologic) pulmonic regurgitation. The aortic root size is normal. IVC Not well visulized. There is no pericardial effusion. CONCLUSIONS -------- 1. The left ventricular size is normal. 2. There is mild concentric left ventricular hypertrophy. 3. Overall left ventricular systolic function is normal with, an EF between 60 - 65 %. 4. There is trace to mild mitral regurgitation. 5. Mild tricuspid regurgitation present. 6. Trace/mild (physiologic) pulmonic regurgitation. 7. There is no pericardial effusion. WELDER GUN: Sudha Ryder RDCS
[2020-07-20 13:34] VITALS: BP 113/77; PULSE 74
--- NOTE | 2020-07-20 13:39 | NM ---
EXAMINATION TYPE: NM stress lexiscan cardiolite DATE OF EXAM: 07/20/2020 COMPARISON: NONE HISTORY: History of COPD and prior heart attack with prior heart catheterization and 3 vessel angiopl asty along with history of tobacco use and hypercholesterolemia presents with chest pain. TECHNIQUE: After the intravenous administration of 10.3 mCi Tc 99m Sestamibi - Cardiolite resting SP ECT images acquired 50 minutes post injection. The patient received 0.4mg Lexiscan, 26 mCi Tc 99m Sestamibi - Stress images obtained 40 minutes post injection FINDINGS: Review of stress and rest SPECT images demonstrates no distinct perfusion abnormality. Gated analysi s shows normal wall motion with an estimated left ventricular ejection fraction of 67 %. IMPRESSION: No scintigraphic evidence for reversible ischemia.
--- NOTE | 2020-07-20 17:45 | P.STRESS ---
- Stress Test Note Stress Test Results/Findings: Exam Performed: NM stress lexiscan cardiolite Exam Date: 07/20/20 Reason for Exam: CHEST PAIN Height: 6 ft Weight: 87.54 kg Protocol: LEXISCAN Stage: N/A Duration of Exercise: 6 MINUTES Resting Heart Rate: 48 Resting Blood Pressure: 106/60 Maximum Achieved Heart Rate: 79 Maximum Achieved Blood Pressure: 106/60 85% PMHR: 140 100% PMHR: 165 METS: N/A Technologist Comment: Stress Test Results/Findings: This is a 54-year-old gentleman with history of hypercholesterolemia, smoking being evaluated for symptoms of chest pain. Stress data: Baseline EKG showed sinus rhythm with normal UT interval and QRS duration. Blood pressure at rest is 106/60 with pulse rate of 48. A standard dose of Lexiscan was infused. EKGs did not reveal any changes from the baseline. He did not experience any chest pain. Final impression: #1. Negative Lexiscan stress test #2. Report on the nuclear portion of the test to be provided by the radiologist
[2020-07-20] MEDS ORDERED: LOSARTAN 25 MG TAB PO SCH (21:00)
[2020-07-20] MEDS ORDERED: ATORVASTATIN 80 MG TAB PO SCH (21:00)
[2020-07-20] MEDS ORDERED: ATORVASTATIN 40 MG TAB PO SCH (21:00)
--- NOTE | 2020-07-21 08:57 | EST ---
Stress Test Results/Findings: Exam Performed: NM stress lexiscan cardiolite Exam Date: 07/20/20 Reason for Exam: CHEST PAIN Height: 6 ft Weight: 87.54 kg Protocol: LEXISCAN Stage: N/A Duration of Exercise: 6 MINUTES Resting Heart Rate: 48 Resting Blood Pressure: 106/60 Maximum Achieved Heart Rate: 79 Maximum Achieved Blood Pressure: 106/60 85% PMHR: 140 100% PMHR: 165 METS: N/A Technologist Comment: Stress Test Results/Findings: This is a 54-year-old gentleman with history of hypercholesterolemia, smoking being evaluated for symptoms of chest pain. Stress data: Baseline EKG showed sinus rhythm with normal SD interval and QRS duration. Blood pressure at rest is 106/60 with pulse rate of 48. A standard dose of Lexiscan was infused. EKGs did not reveal any changes from the baseline. He did not experience any chest pain. Final impression: #1. Negative Lexiscan stress test #2. Report on the nuclear portion of the test to be provided by the radiologist SRINIVAS
[2020-07-21] MEDS ORDERED: ASPIRIN 325 MG TAB PO SCH (09:00)
== END 2020-07-20 14:29 | disposition home or self-care (01) ==
LOC: EC 22:44 → 3NCARDOBS 07-20 00:52
PROVIDERS: ADMIT Family Medicine; ATTEND Family Medicine
DX: R07.89 Other chest pain (principal); E78.5 Hyperlipidemia, unspecified; R06.02 Shortness of breath; F17.200 Nicotine dependence, unspecified, uncomplicated; I10 Essential (primary) hypertension; I25.10 Atherosclerotic heart disease of native coronary artery without angina pectoris; I25.2 Old myocardial infarction; I73.9 Peripheral vascular disease, unspecified; Z79.02 Long term (current) use of antithrombotics/antiplatelets; Z79.82 Long term (current) use of aspirin; Z79.899 Other long term (current) drug therapy; Z86.79 Personal history of other diseases of the circulatory system; Z90.49 Acquired absence of other specified parts of digestive tract; Z95.5 Presence of coronary angioplasty implant and graft
CPT/HCPCS: 93005 ×2; 96376; 96374; 96375; 99285; 36415; 94760; 93017; 93306; 80061; 80053; 85652; 83690; 83735; 84484 ×2; 85025; 85610; 85730; 86140; 71275; 74174; 78452; G0378; A9500; J2270 ×2; J2405; J2785; Q9967

== ENCOUNTER 2020-07-22 08:34 | Day surgery (SDC) | payer MEDICARE ==
[2020-07-21 09:41] VITALS: BMI 26.2
[~2020-07-22 08:34] MED LIST changes: -HEPARIN SODIUM,PORCINE 5,000 UNIT/ML 1 ML VIAL SQ ONE; +LACTATED RINGERS 1,000 ML IV SCH
[2020-07-22] MEDS ORDERED: LIDOCAINE 1% (10MG/ML) FOR IV START INTRADERMA ONE (09:08)
[2020-07-22 09:09] VITALS: TEMP 97.2
[2020-07-22] MEDS ORDERED: PROPOFOL 10 MG/ML 20 ML VIAL IV ONE (09:34)
--- NOTE | 2020-07-22 09:39 | P.GSHP ---
History of Present Illness H&P Date: 07/22/20 Chief Complaint: Diarrhea This a 54-year-old male been stay for colonoscopy. Patient history of diarrhea. Past Medical History Past Medical History: Coronary Artery Disease (CAD), Chest Pain / Angina, GERD/Reflux, Hyperlipidemia, Myocardial Infarction ([place]), Musculoskeletal Disorder, Sleep Apnea/CPAP/BIPAP Additional Past Medical History / Comment(s): Hx ABDOMINAL AORTIC ANEURYSM repair done at [facility] 2016, Chronic Back Pain. No CPAP used. Pos gallstones. CHRONIC DIARRHEA AND PAIN IN LEFT ABDOMEN Last Myocardial Infarction Date:: 08/06/18 History of Any Multi-Drug Resistant Organisms: None Reported Past Surgical History: Back Surgery, Cholecystectomy, Heart Catheterization With Stent, Hernia Repair, Tonsillectomy Additional Past Surgical History / Comment(s): INGUINAL HERNIA X2, ABD HERNIA SURGERY X2 (VENTRAL HERNIA 06/18/18). AAA repair. Colonoscopy. Laporoscopic Cholecystectomy 04/01/20. Past Anesthesia/Blood Transfusion Reactions: No Reported Reaction Date of Last Stent Placement:: 2017 Smoking Status: Current every day smoker - Past Family History Mother Family Medical History: Pulmonary Embolus Father Family Medical History: Unable to Obtain Medications and Allergies Home Medications Medication Instructions Recorded Confirmed Type traMADol HCL [Ultram] 100 mg PO DAILY 09/18/16 07/22/20 History Isosorbide Mononitrate [Ismo] 5 mg PO BID 05/31/20 07/22/20 History Losartan [Cozaar] 12.5 mg PO HS 05/31/20 07/22/20 History Nitroglycerin Sl Tabs [Nitrostat] 0.4 mg SUBLINGUAL Q5M PRN #25 tab 05/31/20 07/22/20 Rx Pantoprazole [Protonix] 40 mg PO DAILY 05/31/20 07/22/20 History Aspirin EC [Ecotrin Low Dose] 81 mg PO DAILY 07/20/20 07/22/20 History Atorvastatin [Lipitor] 80 mg PO HS #30 tab 07/20/20 07/22/20 Rx DULoxetine HCL [Cymbalta] 60 mg PO DAILY 07/20/20 07/22/20 History Metoprolol Tartrate [Lopressor] 25 mg PO BID #60 tab 07/20/20 07/22/20 Rx Clopidogrel [Plavix] 75 mg PO DAILY 07/21/20 07/22/20 History Allergies Allergy/AdvReac Type Severity Reaction Status Date / Time bee venom protein (honey bee) Allergy Itching Verified 07/22/20 09:06 Penicillins Allergy Itching Verified 07/22/20 09:06 Surgical - Exam Vital Signs Temp Pulse Resp BP Pulse Ox 97.2 F L 60 16 126/62 98 07/22/20 09:07 07/22/20 09:07 07/22/20 09:07 07/22/20 09:07 07/22/20 09:07 - General well developed, well nourished, no distress - Eyes PERRL - ENT normal pinna - Neck no masses - Respiratory normal expansion - Cardiovascular Rhythm: regular - Abdomen Abdomen: soft, non tender Assessment and Plan Assessment: Diarrhea. We'll perform colonoscopy.
--- NOTE | 2020-07-22 09:49 | P.OP ---
Date of Procedure: 07/22/20 Preoperative Diagnosis: Diarrhea Postoperative Diagnosis: External hemorrhoids Procedure(s) Performed: Colonoscopy Anesthesia: MAC Surgeon: Peng Hurst Pathology: other (Rectum) Condition: stable Disposition: PACU Description of Procedure: Patient's placed on the endoscopy table in the lateral position. He received IV sedation. Digital rectal exam was performed which revealed external hemorrhoids. The flexible colonoscope was then placed patient anus passed throughout the entire colon. The ileocecal valve was visualized. The cecum, ascending and transverse colon appeared normal. The descending and sigmoid colon appeared normal. Scope was then brought back the rectum this appeared normal. Due to the patient's symptoms of diarrhea a random rectal biopsies performed with the cold forcep. Scope was then withdrawn for patient.
[2020-07-22 10:34] VITALS: PULSE 77; RESP 18
[2020-07-22 10:37] VITALS: BP 108/77
== END 2020-07-22 10:38 | disposition home or self-care (01) ==
LOC: ORWHC2ENDO 08:34
PROVIDERS: ATTEND Surgery
DX: K52.9 Noninfective gastroenteritis and colitis, unspecified (principal); K64.4 Residual hemorrhoidal skin tags; I25.2 Old myocardial infarction; I25.10 Atherosclerotic heart disease of native coronary artery without angina pectoris; I12.9 Hypertensive chronic kidney disease with stage 1 through stage 4 chronic kidney disease, or unspecified chronic kidney disease; N18.2 Chronic kidney disease, stage 2 (mild); E78.5 Hyperlipidemia, unspecified; G47.33 Obstructive sleep apnea (adult) (pediatric); F17.200 Nicotine dependence, unspecified, uncomplicated; G89.29 Other chronic pain; M54.9 Dorsalgia, unspecified; K21.9 Gastro-esophageal reflux disease without esophagitis; Z88.0 Allergy status to penicillin; Z79.02 Long term (current) use of antithrombotics/antiplatelets; Z79.891 Long term (current) use of opiate analgesic; Z79.899 Other long term (current) drug therapy; Z99.89 Dependence on other enabling machines and devices; Z95.5 Presence of coronary angioplasty implant and graft; Z90.49 Acquired absence of other specified parts of digestive tract; Z90.89 Acquired absence of other organs; Z98.890 Other specified postprocedural states; Z82.49 Family history of ischemic heart disease and other diseases of the circulatory system; Z91.030 Bee allergy status
CPT/HCPCS: 88305; 45380; J2704

== ENCOUNTER → 2024-04-14 | Outpatient (CLI) | payer MEDICARE ==
--- NOTE | 2024-04-14 10:48 | MR ---
EXAMINATION TYPE: MR brain wo/w con DATE OF EXAM: 04/14/2024 6:42 AM CLINICAL INDICATION:Male, 58 years old with history of R51.9 headache H53.9 visual changes; PHH, COMPARISON: TECHNIQUE: Multi planar, multi sequence imaging was performed through the brain including: T1, T2, In version recovery, susceptibility weighted imaging and gradient echo imaging and Diffusion weighted im aging. The patient was then given intravenous contrast and multi planar, T1 fat-saturation images wer e obtained. IV Contrast: 8 cc Gadavist FINDINGS: The saenz-white junctions, ventricular system, basal cisterns appear unremarkable. Diffusion-weighted imaging shows no evidence of restricted diffusion to suggest acute/subacute infarct. Intracranial ar terial flow voids are maintained. Midline structures show no abnormality. Scattered foci of high T2/F LAIR signal intensity are seen within the periventricular white matter. The susceptibility weighted i mages do not reveal any evidence for micro-hemorrhage. After administration of gadolinium, no abnorma l enhancement is seen. The bone marrow signal is within normal limits. Paranasal sinuses and mastoid air cells: No significant paranasal sinus disease. Visualized orbits: Orbital contents are intact. IMPRESSION: 1. No evidence of intracranial mass, acute/subacute infarct, or abnormal enhancement. 2. Nonspecific white matter changes, likely related to small vessel ischemic disease (chronic microan giopathy).
== END | disposition home or self-care (01) ==
LOC: RADMRIMAIN 05:55
PROVIDERS: ATTEND Family Medicine
DX: R90.82 White matter disease, unspecified (principal); H53.9 Unspecified visual disturbance; R51.9 Headache, unspecified
CPT/HCPCS: 70553; A9585